=== PATIENT | male | born 1965 | race Caucasian/White ===

== ENCOUNTER 2018-06-14 10:27 | Emergency (ER) | payer MEDICAID, OTHER ==
[2018-06-14] MEDS ORDERED: LORazepam 1 MG Tab PO ONE (11:01)
--- NOTE | 2018-06-14 11:22 | EDM.PDOC ---
ED HPI GENERAL MEDICAL PROBLEM - General Chief Complaint: Behavioral/Psych Stated Complaint: PANIC ATTACK Time Seen by Provider: 06/14/18 10:35 Source of Information: Reports: Patient History Limitations: Reports: No Limitations - History of Present Illness INITIAL COMMENTS - FREE TEXT/NARRATIVE: HISTORY AND PHYSICAL: History of present illness: Patient is a 53-year-old male who presents to the emergency room today via personal vehicle with concerns of "panic attack ". Patient states his main symptom is feeling dizzy and lightheaded. Patient states he believes this is related to him abstaining from alcohol. He states he has been trying to decrease his alcohol intake over the past month. He states his usual drinking would be about "a fifth" of hard alcohol a day (750mL). He states over the last week he has minimized that to 2 shots a day over the past week or so. He states since he has decreased his alcohol intake, he notices that he feels dizzy and lightheaded and feels like he can't breathe. Patient states that he has been told in the past that if he tries to stop drinking, that he will likely from withdraw due to his heavy alcohol use. Patient expresses significant anxiety about this and is concerned about stopping his alcohol intake due to this statement. He states that if we are not able to help him today with the symptoms that he will go to the liquor store following his ED visit. He states that if he does take a shot of alcohol, his symptoms go away. He states his last drink was yesterday around 2 PM and total intake yesterday was 2 shots. Patient denies any alcohol use today. Patient states that he is on Prozac for depression and anxiety and follows with his primary care provider in [place] where he is from. He states that he goes home to [place] next month and will not be able to see this provider until then (due to lack of insurance coverage here in [place]). Patient states his compliant with medications. Patient denies chest pain, wheezing, cough, fever, chills, nausea, vomiting abdominal pain, pain in either arm, diaphoresis, sinus congestion, ear pain, or all other cardiovascular, respiratory, GI, or symptoms. Patient does have a health history of COPD, heavy tobacco/smoking abuse, obstructive sleep apnea, hypertension, hyperlipidemia, insulin-dependent type 2 diabetes, alcohol abuse, anxiety, depression, does have a pacemaker but is unsure of etiology. Review of systems: As per history of present illness and below otherwise all systems reviewed and negative. Past medical history: As per history of present illness and as reviewed below otherwise noncontributory. Surgical history: As per history of present illness and as reviewed below otherwise noncontributory. Social history: See social history for further information Family history: As per history of present illness and as reviewed below otherwise noncontributory. Physical exam: General: Patient is alert, orientated, speaking full sentences, and in no acute distress. He is sitting comfortably on exam table but mildly anxious appearing. HEENT: Atraumatic, normocephalic, pupils equal and reactive bilaterally, negative for conjunctival pallor or scleral icterus, mucous membranes moist, TMs normal bilaterally, throat clear, neck supple, nontender, trachea midline. No drooling or trismus noted. No meningeal signs. No hot potato voice noted. Lungs: There is diffuse wheezing throughout lung kennedy bilaterally, breath sounds equal bilaterally but greatly diminished, chest nontender. Heart: Heart exam is limited due to body habitus. S1S2, regular rate and rhythm without overt murmur Abdomen: Obese, soft, nondistended, nontender. Negative for masses or hepatosplenomegaly. Negative for costovertebral tenderness. Pelvis: Stable nontender. Genitourinary: Deferred. Rectal: Deferred. Skin: Intact, warm, dry. No lesions or rashes noted. Extremities: Atraumatic, negative for cords or calf pain. Neurovascular unremarkable. Neuro: Awake, alert, oriented. Cranial nerves II through XII unremarkable. Cerebellum unremarkable. Motor and sensory unremarkable throughout. Exam nonfocal. Notes: On exam, patient is alert, oriented and speaking in full sentences. He is mildly anxious appearing when discussing his alcohol history. We'll do routine lab work on this patient and give him 1 dose of Ativan while here. He does have a ride to home. Patient is aware of the limitations available for assisting with his alcohol cessation treatment. We discussed appropriate follow-up and community resources that are available to him. He states he will not see a primary care provider here and [place] as his insurance does not cover anything other than emergency room visits. He is agreeable to the labs at this time. Lab work is unremarkable with the exception of an elevated sugar level today.EKG shows no changes from previous ER visit. Chest x-ray shows no acute cardio-pulmonary process. He states he feels improved. VSS. Patient was made aware of diagnostics. Encouraged him to continue to monitor his glucose and administers insulin per his routine. We'll give a prescription for Atarax for a few days until he can follow-up. Diagnostics: CBC, CMP, troponin, EKG, orthostatic vitals, chest x-ray Therapeutics: Ativan PO Prescription: Atarax Impression: 1. Anxiety 2. h/o alcohol abuse 3. h/o type 2 diabetes Plan: 1. Take medication as prescribed. 2. Follow up with your primary care physician in [place] or establish one here for definitive treatment of your symptoms. Please be reevaluated in 1-2 days. 3. Continue to abstain from alcohol. Follow up with [facility] or outpatient AA meetings for continued support. 4. Return to the ED as needed and as discussed. Definitive disposition and diagnosis as appropriate pending reevaluation and review of above. - Related Data Allergies Allergy/AdvReac Type Severity Reaction Status Date / Time No Known Allergies Allergy Verified 06/14/18 10:52 Home Meds: Home Meds Insulin Detemir [Levemir Flextouch] 100 unit SQ BID 04/18/18 [History] glipiZIDE [Glucotrol] 10 mg PO DAILY 04/18/18 [History] metFORMIN HCl [Metformin HCl] 1,000 mg PO BID 04/18/18 [History] hydrOXYzine HCl [Atarax] 25 mg PO Q6H PRN #15 tab 06/14/18 [Rx] Past Medical History HEENT History: Reports: Impaired Vision Cardiovascular History: Reports: Hypertension, Pacemaker Respiratory History: Reports: None Gastrointestinal History: Reports: None Genitourinary History: Reports: None Musculoskeletal History: Reports: None Neurological History: Reports: None Psychiatric History: Reports: Anxiety, Depression, Panic Attack Endocrine/Metabolic History: Reports: Diabetes, Type II Immunologic History: Reports: None Dermatologic History: Reports: None - Infectious Disease History Infectious Disease History: Reports: None Social & Family History - Family History Family Medical History: Noncontributory - Tobacco Use Smoking Status *Q: Current Every Day Smoker Years of Tobacco use: 35 Packs/Tins Daily: 1 - Recreational Drug Use Recreational Drug Use: No ED ROS GENERAL - Review of Systems Review Of Systems: ROS reveals no pertinent complaints other than HPI. ED EXAM, DIZZINESS - Physical Exam Exam: See Below (see dictation) Course - Vital Signs Last Recorded V/S: Last Vital Signs Temp 97.2 F 06/14/18 10:49 Pulse 83 06/14/18 10:49 Resp 20 06/14/18 10:49 BP 135/98 H 06/14/18 10:49 Pulse Ox 97 06/14/18 10:49 Orthostatic Blood Pressure [ 122/93 Standing] Orthostatic Blood Pressure [ 148/95 Sitting] Orthostatic Blood Pressure [ 137/86 Supine] - Orders/Labs/Meds Orders: Active Orders 24 hr Category Date Time Status EKG Documentation Completion [RC] STAT Care 06/14/18 11:02 Active Orthostatic Vital Signs [RC] ASDIRECTED Care 06/14/18 11:04 Active Chest 2V [CR] Stat Exams 06/14/18 11:02 Ordered Labs: Laboratory Tests 06/14/18 06/14/18 Range/Units 11:10 11:10 WBC 6.52 (4.0-11.0) K/uL RBC 4.79 (4.50-5.90) M/uL Hgb 15.3 (13.0-17.0) g/dL Hct 42.4 (38.0-50.0) % MCV 88.5 (80.0-98.0) fL MCH 31.9 (27.0-32.0) pg MCHC 36.1 (31.0-37.0) g/dL RDW Std Deviation 43.3 (28.0-62.0) fl RDW Coeff of Blank 13 (11.0-15.0) % Plt Count 177 (150-400) K/uL MPV 9.30 (7.40-12.00) fL Neut % (Auto) 51.6 (48.0-80.0) % Lymph % (Auto) 37.4 (16.0-40.0) % Faulkner % (Auto) 9.0 (0.0-15.0) % Eos % (Auto) 1.4 (0.0-7.0) % Baso % (Auto) 0.6 (0.0-1.5) % Neut # (Auto) 3.4 (1.4-5.7) K/uL Lymph # (Auto) 2.4 (0.6-2.4) K/uL Faulkner # (Auto) 0.6 (0.0-0.8) K/uL Eos # (Auto) 0.1 (0.0-0.7) K/uL Baso # (Auto) 0.0 (0.0-0.1) K/uL Nucleated RBC % 0.0 /100WBC Nucleated RBCs # 0 K/uL Sodium 134 L (136-148) mmol/L Potassium 3.9 (3.5-5.1) mmol/L Chloride 101 (98-107) mmol/L Carbon Dioxide 20.5 L (21.0-32.0) mmol/L BUN 6 L (7.0-18.0) mg/dL Creatinine 1.0 (0.8-1.3) mg/dL Est Cr Clr Drug Dosing 95.92 mL/min Estimated GFR (MDRD) > 60.0 ml/min Glucose 256 H (74-106) mg/dL Calcium 8.8 (8.5-10.1) mg/dL Total Bilirubin 0.5 (0.2-1.0) mg/dL AST 32 (15-37) IU/L ALT 39 (14-63) IU/L Alkaline Phosphatase 65 (46-116) U/L Troponin I < 0.050 (0.000-0.056) ng/mL Total Protein 7.3 (6.4-8.2) g/dL Albumin 3.6 (3.4-5.0) g/dL Globulin 3.7 (2.6-4.0) g/dL Albumin/Globulin Ratio 1.0 (0.9-1.6) Meds: Medications Discontinued Medications Generic Name Dose Route Start Last Admin Trade Name Freq PRN Reason Stop Dose Admin Lorazepam 1 mg 06/14/18 11:01 06/14/18 11:12 Ativan PO 06/14/18 11:02 1 mg ONETIME ONE Administration Departure - Departure Time of Disposition: 12:24 Disposition: Home, Self-Care 01 Clinical Impression: Anxiety, History of diabetes mellitus, type II, History of alcohol abuse - Discharge Information Prescriptions: hydrOXYzine HCl [Atarax] 25 mg PO Q6H PRN #15 tab PRN Reason: Anxiety Instructions: Panic Attack, [id number] Referrals: PCP,None [Primary Care Provider] - Forms: ED Department Discharge Additional Instructions: The following information is given to patients seen in the emergency department who are being discharged to home. This information is to outline your options for follow-up care. We provide all patients seen in our emergency department with a follow-up referral. The need for follow-up, as well as the timing and circumstances, are variable depending upon the specifics of your emergency department visit. If you don't have a primary care physician on staff, we will provide you with a referral. We always advise you to contact your personal physician following an emergency department visit to inform them of the circumstance of the visit and for follow-up with them and/or the need for any referrals to a consulting specialist. The emergency department will also refer you to a specialist when appropriate. This referral assures that you have the opportunity for follow-up care with a specialist. All of these measure are taken in an effort to provide you with optimal care, which includes your follow-up. Under all circumstances we always encourage you to contact your private physician who remains a resource for coordinating your care. When calling for follow-up care, please make the office aware that this follow-up is from your recent emergency room visit. If for any reason you are refused follow-up, please contact the [facility] Emergency Department at and asked to speak to the emergency department charge nurse. [facility] [address], [place] [address] [facility] [address] [place] [phone] [facility] [address] [facility] [id number] Crisis Line: 1. Take medication as prescribed. 2. Follow up with your primary care physician in [place] or establish one here for definitive treatment of your symptoms. Please be reevaluated in 1-2 days. 3. Continue to abstain from alcohol. Follow up with [facility] or outpatient AA meetings for continued support. 4. Return to the ED as needed and as discussed. - My Orders Last 24 Hours: My Active Orders 06/14/18 11:02 EKG Documentation Completion [RC] STAT Chest 2V [CR] Stat 06/14/18 11:04 Orthostatic Vital Signs [RC] ASDIRECTED - Assessment/Plan Last 24 Hours: My Active Orders 06/14/18 11:02 EKG Documentation Completion [RC] STAT Chest 2V [CR] Stat 06/14/18 11:04 Orthostatic Vital Signs [RC] ASDIRECTED
[2018-06-14 11:44] LABS: CHLORIDE,CL 101 mmol/L (98-107); SODIUM,NA 134 mmol/L (136-148)
--- NOTE | 2018-06-14 14:17 | CR ---
EXAMINATION: Two-view chest (PA and Lateral views). HISTORY: Dizziness. FINDINGS: The trachea is midline. The cardiomediastinal silhouette is within normal limits. No pulmonary infiltrates, effusions or pneumothorax. There is a left-sided pacemaker. Old granulomatous disease noted. Mild hyperinflation. Osseous structures appear unremarkable. IMPRESSION: No acute cardiopulmonary process.
== END 2018-06-14 12:36 | disposition home or self-care (01) ==
LOC: MW.ED 10:27
DX: F41.9 Anxiety disorder, unspecified (principal); E11.9 Type 2 diabetes mellitus without complications; F17.210 Nicotine dependence, cigarettes, uncomplicated; I10 Essential (primary) hypertension; Z79.4 Long term (current) use of insulin; Z79.899 Other long term (current) drug therapy
CPT/HCPCS: 36415; 71046; 80053; 84484; 85025; 93005; 99284; A9270

== ENCOUNTER 2018-08-08 06:52 | Emergency (ER) | payer MEDICAID ==
--- NOTE | 2018-08-08 07:25 | EDM.PDOC ---
ED HPI GENERAL MEDICAL PROBLEM - General Stated Complaint: INFECTION ON STOMACH Time Seen by Provider: 08/08/18 07:05 Source of Information: Reports: Patient History Limitations: Reports: No Limitations - History of Present Illness INITIAL COMMENTS - FREE TEXT/NARRATIVE: History of present illness: []Patient had a mesh hernia repair 2 years ago in [place] and ever since then he's had drainage from an umbilical wound. 3 days ago it started getting red and itchy. He denies any fevers, chills, abdominal pain that is not localized to the area of drainage, vomiting, diarrhea or any other pain. He has a history of boils and has been treated with Bactrim past. Review of systems: As per history of present illness and below otherwise all systems reviewed and negative. Past medical history: As per history of present illness and as reviewed below otherwise noncontributory. Surgical history: As per history of present illness and as reviewed below otherwise noncontributory. Social history: No reported history of drug or alcohol abuse. Family history: As per history of present illness and as reviewed below otherwise noncontributory. Physical exam: General: Well developed, well nourished in NAD HEENT: Atraumatic, normocephalic, pupils reactive, negative for conjunctival pallor or scleral icterus, mucous membranes moist, throat clear, neck supple, nontender, trachea midline. Lungs: Clear to auscultation, breath sounds equal bilaterally, chest nontender. Heart: S1S2, regular, negative for clicks, rubs, or JVD. Abdomen: Umbilical area that is erythematous 0.5 cm open wound with granulation tissue there is serous drainage, there is no purulent drainage from the wound andthere is a rash on both sides of the wound where he is using tape to keep the dressing in place. NABS, Soft, nondistended, no rebound or guarding. Negative for masses or hepatosplenomegaly. Negative for costovertebral tenderness. Pelvis: Stable nontender. Genitourinary: Deferred. Rectal: Deferred. Extremities: Atraumatic, negative for cords or calf pain. Neurovascular unremarkable. Neuro: Awake, alert, oriented. Cranial nerves II through XII unremarkable. Cerebellum unremarkable. Motor and sensory unremarkable throughout. Exam nonfocal. Skin:warm and dry Diagnostics: Bedside glucose 239 (patient states he has not taken his meds this morning) Therapeutics: None ED Course: Stable Impression: Chronic abdominal wound under under mesh hernia repair Prescriptions: Bactrim Plan: Follow up with general surgery,Take meds as directed, follow up with your primary care physician, return to ER if symptoms worsen or change. Definitive disposition and diagnosis as appropriate pending reevaluation and review of above. Abdominal Pain Score (Numeric/FACES): 6 - Related Data Allergies Allergy/AdvReac Type Severity Reaction Status Date / Time No Known Allergies Allergy Verified 08/08/18 07:32 Home Meds: Home Meds Insulin Detemir [Levemir Flextouch] 100 unit SQ BID 04/18/18 [History] glipiZIDE [Glucotrol] 10 mg PO DAILY 04/18/18 [History] metFORMIN HCl [Metformin HCl] 1,000 mg PO BID 04/18/18 [History] FLUoxetine [PROzac] 10 mg PO DAILY 06/08/18 [History] Insulin Detemir [Levemir] 30 unit SQ BID 06/08/18 [History] Lisinopril [Prinivil] 10 mg PO DAILY 06/08/18 [History] Omeprazole 20 mg PO DAILY 06/08/18 [History] metFORMIN [Glucophage XR] 500 mg pe PO BID 06/08/18 [History] hydrOXYzine HCl [Atarax] 25 mg PO Q6H PRN #15 tab 06/14/18 [Rx] Sulfamethoxazole/Trimethoprim [Bactrim Ds Tablet] 1 each PO BID #20 tablet 08/08 [Rx] Past Medical History HEENT History: Reports: Impaired Vision Cardiovascular History: Reports: Hypertension, Pacemaker Respiratory History: Reports: None Gastrointestinal History: Reports: None Genitourinary History: Reports: None Musculoskeletal History: Reports: None Neurological History: Reports: None Psychiatric History: Reports: Anxiety, Depression, Panic Attack Endocrine/Metabolic History: Reports: Diabetes, Type II Immunologic History: Reports: None Dermatologic History: Reports: None - Infectious Disease History Infectious Disease History: Reports: None - Past Surgical History GI Surgical History: Reports: Colonoscopy, Hernia Repair/Other Social & Family History - Family History Family Medical History: Noncontributory ED ROS GENERAL - Review of Systems Review Of Systems: ROS reveals no pertinent complaints other than HPI. ED EXAM, GI/ABD - Physical Exam Exam: See Below (See history of present illness) Course - Vital Signs Last Recorded V/S: Last Vital Signs Temp 98.2 F 08/08/18 07:33 Pulse 86 08/08/18 07:33 Resp 16 08/08/18 07:33 BP 145/86 H 08/08/18 07:33 Pulse Ox 97 08/08/18 07:33 - Orders/Labs/Meds Orders: Active Orders 24 hr Category Date Time Status Blood Glucose Check, Bedside [RC] ONETIME Care 08/08/18 07:39 Active Departure - Departure Time of Disposition: 07:46 Disposition: Home, Self-Care 01 Condition: Good Clinical Impression: Wound cellulitis after surgery - Discharge Information *PRESCRIPTION DRUG MONITORING PROGRAM REVIEWED*: No *COPY OF PRESCRIPTION DRUG MONITORING REPORT IN PATIENT TORRI: No Prescriptions: Sulfamethoxazole/Trimethoprim [Bactrim Ds Tablet] 1 each PO BID #20 tablet Referrals: PCP,None [Primary Care Provider] - Additional Instructions: The following information is given to patients seen in the emergency department who are being discharged to home. This information is to outline your options for follow-up care. We provide all patients seen in our emergency department with a follow-up referral. The need for follow-up, as well as the timing and circumstances, are variable depending upon the specifics of your emergency department visit. If you don't have a primary care physician on staff, we will provide you with a referral. We always advise you to contact your personal physician following an emergency department visit to inform them of the circumstance of the visit and for follow-up with them and/or the need for any referrals to a consulting specialist. The emergency department will also refer you to a specialist when appropriate. This referral assures that you have the opportunity for follow-up care with a specialist. All of these measure are taken in an effort to provide you with optimal care, which includes your follow-up. Under all circumstances we always encourage you to contact your private physician who remains a resource for coordinating your care. When calling for follow-up care, please make the office aware that this follow-up is from your recent emergency room visit. If for any reason you are refused follow-up, please contact the [facility] Emergency Department at and asked to speak to the emergency department charge nurse. Follow-up with general surgery or primary care [facility] - General Surgery Professional [facility] [address] [place] [address], [address] [place] [address] [facility] [address] [place] [id number] - My Orders Last 24 Hours: My Active Orders 08/08/18 07:39 Blood Glucose Check, Bedside [] ONETIME - Assessment/Plan Last 24 Hours: My Active Orders 08/08/18 07:39 Blood Glucose Check, Bedside [RC] ONETIME
== END 2018-08-08 07:56 | disposition home or self-care (01) ==
LOC: MW.ED 06:52
DX: K91.89 Other postprocedural complications and disorders of digestive system (principal); L03.311 Cellulitis of abdominal wall
CPT/HCPCS: 99282; 99283

== ENCOUNTER 2019-02-15 08:56 | Observation (INO) | payer MEDICAID, OTHER, SELFPAY ==
[2019-02-15] MEDS ORDERED: Sodium Chloride 0.9% 10 ML Syringe FLUSH PRN (09:04)
[2019-02-15] MEDS ORDERED: Aspirin 81 MG Tab.Chew PO ONE (09:04)
[2019-02-15] MEDS ORDERED: Sodium Chloride 0.9% 2.5 ML Syringe FLUSH PRN (09:04)
[2019-02-15] MEDS ORDERED: Nitroglycerin 2% Oint 1 GM UD Packet TOP ONE (09:04)
[2019-02-15] MEDS ORDERED: LORazepam 2 MG/ML SDV IVPUSH ONE ×2 (09:04→10:33)
--- NOTE | 2019-02-15 09:07 | EDM.PDOC ---
ED HPI GENERAL MEDICAL PROBLEM - General Stated Complaint: SHORTNESS OF BREATH Time Seen by Provider: 02/15/19 09:03 - History of Present Illness INITIAL COMMENTS - FREE TEXT/NARRATIVE: HISTORY AND PHYSICAL: History of present illness: Patient's 54-year-old white male with history of diabetes hypertension cardiac pacemaker alcohol abuse acute anxiety medical noncompliance who presents with a concern of shortness of breath anxiety and palpitations. He states his noncompliance relates to insurance reasons and being new to the area and unattached with any physician. Review of systems: As per history of present illness and below otherwise all systems reviewed and negative. Past medical history: As per history of present illness and as reviewed below otherwise noncontributory. Surgical history: As per history of present illness and as reviewed below otherwise noncontributory. Social history: No reported history of drug or alcohol abuse. Family history: As per history of present illness and as reviewed below otherwise noncontributory. Physical exam: HEENT: Atraumatic, normocephalic, pupils reactive, negative for conjunctival pallor or scleral icterus, mucous membranes moist, throat clear, neck supple, nontender, trachea midline. Lungs: Clear to auscultation, breath sounds equal bilaterally, chest nontender. Heart: S1S2, regular, negative for clicks, rubs, or JVD. Abdomen: Soft, nondistended, nontender. Negative for masses or hepatosplenomegaly. Negative for costovertebral tenderness. Pelvis: Stable nontender. Genitourinary: Deferred. Rectal: Deferred. Extremities: Atraumatic, negative for cords or calf pain. Neurovascular unremarkable. Neuro: Awake, alert, anxious, oriented. Cranial nerves II through XII unremarkable. Cerebellum unremarkable. Motor and sensory unremarkable throughout. Exam nonfocal. Diagnostics: CBC CMP troponin PT/INR chest x-ray EKG BNP Therapeutics: Saline lock aspirin 324 mg by mouth Ativan 1 mg IV nitro paste 1 inch Impression: #1 dyspnea #2 anxiety #3 history of alcohol abuse #4 history of medical noncompliance #5 history of hypertension #6 palpitations #7 diabetes Definitive disposition and diagnosis as appropriate pending reevaluation and review of above. - Related Data Allergies Allergy/AdvReac Type Severity Reaction Status Date / Time No Known Allergies Allergy Verified 02/15/19 10:01 Home Meds: Home Meds Insulin Detemir [Levemir Flextouch] 100 unit SQ BID 04/18/18 [History] glipiZIDE [Glucotrol] 10 mg PO DAILY 04/18/18 [History] metFORMIN HCl [Metformin HCl] 1,000 mg PO BID 04/18/18 [History] FLUoxetine [PROzac] 10 mg PO DAILY 06/08/18 [History] Insulin Detemir [Levemir] 30 unit SQ BID 06/08/18 [History] Lisinopril [Prinivil] 10 mg PO DAILY 06/08/18 [History] Omeprazole 20 mg PO DAILY 06/08/18 [History] hydrOXYzine HCl [Atarax] 25 mg PO Q6H PRN #15 tab 06/14/18 [Rx] Sulfamethoxazole/Trimethoprim [Bactrim Ds Tablet] 1 each PO BID #20 tablet 08/08 [Rx] Past Medical History HEENT History: Reports: Impaired Vision Cardiovascular History: Reports: Hypertension, Pacemaker Respiratory History: Reports: None Gastrointestinal History: Reports: None Genitourinary History: Reports: None Musculoskeletal History: Reports: None Neurological History: Reports: None Psychiatric History: Reports: Anxiety, Depression, Panic Attack Endocrine/Metabolic History: Reports: Diabetes, Type II Immunologic History: Reports: None Dermatologic History: Reports: None - Infectious Disease History Infectious Disease History: Reports: None - Past Surgical History GI Surgical History: Reports: Colonoscopy, Hernia Repair/Other Social & Family History - Family History Family Medical History: Noncontributory - Caffeine Use Caffeine Use: Reports: Coffee ED ROS GENERAL - Review of Systems Review Of Systems: ROS reveals no pertinent complaints other than HPI. ED EXAM, GENERAL - Physical Exam Exam: See Below (See dictation) Course - Vital Signs Last Recorded V/S: Last Vital Signs Temp 35.9 C 02/15/19 09:58 Pulse 84 02/15/19 10:30 Resp 20 02/15/19 10:30 BP 184/125 H 02/15/19 10:30 Pulse Ox 95 02/15/19 10:30 - Orders/Labs/Meds Orders: Active Orders 24 hr Category Date Time Status Cardiac Monitoring [RC] . DIRECTED Care 02/15/19 09:03 Active EKG Documentation Completion [RC] STAT Care 02/15/19 09:03 Active Oxygen Therapy, ED [RC] ASDIRECTED Care 02/15/19 09:03 Active Pulse Oximetry [RC] ASDIRECTED Care 02/15/19 09:03 Active MVI, Adult with Vitamin K [Infuvite Adult] 10 ml Med 02/15/19 10:33 Active Thiamine [Vitamin B-1] 100 mg Folic Acid 1 mg Sodium Chloride 0.9% [Normal Saline] 1,000 ml IV ONETIME Sodium Chloride 0.9% [Saline Flush] Med 02/15/19 09:04 Active 10 ml FLUSH ASDIRECTED PRN Sodium Chloride 0.9% [Saline Flush] Med 02/15/19 09:04 Active 2.5 ml FLUSH ASDIRECTED PRN Saline Lock Insert [OM.PC] Stat Oth 02/15/19 09:03 Ordered Medication Orders Multivitamins/Minerals 10 ml/Thiamine HCl 100 mg/ Folic Acid 1 mg/ Sodium Chloride 1,011.2 mls @ 999 mls/hr IV ONETIME ONE Stop: 02/15/19 11:33 Last Admin: 02/15/19 10:51 Dose: 999 mls/hr Sodium Chloride (Saline Flush) 10 ml FLUSH ASDIRECTED PRN PRN Reason: Keep Vein Open Sodium Chloride (Saline Flush) 2.5 ml FLUSH ASDIRECTED PRN PRN Reason: Keep Vein Open Labs: Laboratory Tests 02/15/19 02/15/19 02/15/19 Range/Units 09:17 09:17 09:17 WBC 6.09 (4.0-11.0) K/uL RBC 4.65 (4.50-5.90) M/uL Hgb 15.2 (13.0-17.0) g/dL Hct 43.2 (38.0-50.0) % MCV 92.9 (80.0-98.0) fL MCH 32.7 H (27.0-32.0) pg MCHC 35.2 (31.0-37.0) g/dL RDW Std Deviation 45.3 (28.0-62.0) fl RDW Coeff of Blank 13 (11.0-15.0) % Plt Count 134 L (150-400) K/uL MPV 9.20 (7.40-12.00) fL Neut % (Auto) 57.3 (48.0-80.0) % Lymph % (Auto) 34.0 (16.0-40.0) % [place] % (Auto) 6.1 (0.0-15.0) % Eos % (Auto) 2.1 (0.0-7.0) % Baso % (Auto) 0.5 (0.0-1.5) % Neut # (Auto) 3.5 (1.4-5.7) K/uL Lymph # (Auto) 2.1 (0.6-2.4) K/uL [place] # (Auto) 0.4 (0.0-0.8) K/uL Eos # (Auto) 0.1 (0.0-0.7) K/uL Baso # (Auto) 0.0 (0.0-0.1) K/uL Nucleated RBC % 0.0 /100WBC Nucleated RBCs # 0 K/uL INR 1.22 Sodium 139 (136-148) mmol/L Potassium 3.7 (3.5-5.1) mmol/L Chloride 101 (98-107) mmol/L Carbon Dioxide 26.4 (21.0-32.0) mmol/L BUN 8 (7.0-18.0) mg/dL Creatinine 0.9 (0.8-1.3) mg/dL Est Cr Clr Drug Dosing 108.51 mL/min Estimated GFR (MDRD) > 60.0 ml/min Glucose 234 H (74-106) mg/dL Calcium 9.0 (8.5-10.1) mg/dL Total Bilirubin 0.3 (0.2-1.0) mg/dL AST 37 (15-37) IU/L ALT 34 (14-63) IU/L Alkaline Phosphatase 61 (46-116) U/L Troponin I < 0.050 (0.000-0.056) ng/mL B-Natriuretic Peptide (<100) PG/ML Total Protein 6.9 (6.4-8.2) g/dL Albumin 3.2 L (3.4-5.0) g/dL Globulin 3.7 (2.6-4.0) g/dL Albumin/Globulin Ratio 0.9 (0.9-1.6) 02/15/19 Range/Units 09:17 WBC (4.0-11.0) K/uL RBC (4.50-5.90) M/uL Hgb (13.0-17.0) g/dL Hct (38.0-50.0) % MCV (80.0-98.0) fL MCH (27.0-32.0) pg MCHC (31.0-37.0) g/dL RDW Std Deviation (28.0-62.0) fl RDW Coeff of Blank (11.0-15.0) % Plt Count (150-400) K/uL MPV (7.40-12.00) fL Neut % (Auto) (48.0-80.0) % Lymph % (Auto) (16.0-40.0) % [place] % (Auto) (0.0-15.0) % Eos % (Auto) (0.0-7.0) % Baso % (Auto) (0.0-1.5) % Neut # (Auto) (1.4-5.7) K/uL Lymph # (Auto) (0.6-2.4) K/uL [place] # (Auto) (0.0-0.8) K/uL Eos # (Auto) (0.0-0.7) K/uL Baso # (Auto) (0.0-0.1) K/uL Nucleated RBC % /100WBC Nucleated RBCs # K/uL INR Sodium (136-148) mmol/L Potassium (3.5-5.1) mmol/L Chloride (98-107) mmol/L Carbon Dioxide (21.0-32.0) mmol/L BUN (7.0-18.0) mg/dL Creatinine (0.8-1.3) mg/dL Est Cr Clr Drug Dosing mL/min Estimated GFR (MDRD) ml/min Glucose (74-106) mg/dL Calcium (8.5-10.1) mg/dL Total Bilirubin (0.2-1.0) mg/dL AST (15-37) IU/L ALT (14-63) IU/L Alkaline Phosphatase (46-116) U/L Troponin I (0.000-0.056) ng/mL B-Natriuretic Peptide 36 (<100) PG/ML Total Protein (6.4-8.2) g/dL Albumin (3.4-5.0) g/dL Globulin (2.6-4.0) g/dL Albumin/Globulin Ratio (0.9-1.6) Meds: Medications Generic Name Dose Route Start Last Admin Trade Name Freq PRN Reason Stop Dose Admin Multivitamins/Minerals 10 ml/ 1,011.2 mls @ 999 mls/hr 02/15/19 10:33 10:51 Thiamine HCl 100 mg/ Folic IV 02/15/19 11:33 999 mls/hr Acid 1 mg/ Sodium Chloride ONETIME ONE Administration Sodium Chloride 10 ml 02/15/19 09:04 Saline Flush FLUSH ASDIRECTED PRN Keep Vein Open Sodium Chloride 2.5 ml 02/15/19 09:04 Saline Flush FLUSH ASDIRECTED PRN Keep Vein Open Discontinued Medications Generic Name Dose Route Start Last Admin Trade Name Freq PRN Reason Stop Dose Admin Aspirin 324 mg 02/15/19 09:04 02/15/19 09:14 Aspirin PO 02/15/19 09:05 324 mg ONETIME ONE Administration Lorazepam 1 mg 02/15/19 09:04 02/15/19 09:15 Ativan IVPUSH 02/15/19 09:05 1 mg ONETIME ONE Administration Lorazepam 1 mg 02/15/19 10:33 02/15/19 10:39 Ativan IVPUSH 02/15/19 10:34 1 mg ONETIME ONE Administration Lorazepam Confirm 02/15/19 10:35 Ativan Administered 02/15/19 10:36 Dose 2 mg .ROUTE .STK-MED ONE Nitroglycerin 1 gm 02/15/19 09:04 02/15/19 09:15 Nitro-Bid 2% TOP 02/15/19 09:05 1 gm ONETIME ONE Administration Departure - Departure Time of Disposition: 10:54 Disposition: Home, Self-Care 01 Condition: Good Clinical Impression: Alcohol withdrawal - Discharge Information - My Orders Last 24 Hours: My Active Orders 02/15/19 09:03 Cardiac Monitoring [RC] . DIRECTED EKG Documentation Completion [RC] STAT Oxygen Therapy, ED [RC] ASDIRECTED Pulse Oximetry [RC] ASDIRECTED Saline Lock Insert [OM.PC] Stat 02/15/19 09:04 Sodium Chloride 0.9% [Saline Flush] 10 ml FLUSH ASDIRECTED PRN Sodium Chloride 0.9% [Saline Flush] 2.5 ml FLUSH ASDIRECTED PRN 02/15/19 10:33 MVI, Adult with Vitamin K [Infuvite Adult] 10 ml Thiamine [Vitamin B-1] 100 mg Folic Acid 1 mg Sodium Chloride 0.9% [Normal Saline] 1,000 ml IV ONETIME - Assessment/Plan Last 24 Hours: My Active Orders 02/15/19 09:03 Cardiac Monitoring [RC] . DIRECTED EKG Documentation Completion [RC] STAT Oxygen Therapy, ED [RC] ASDIRECTED Pulse Oximetry [RC] ASDIRECTED Saline Lock Insert [OM.PC] Stat 02/15/19 09:04 Sodium Chloride 0.9% [Saline Flush] 10 ml FLUSH ASDIRECTED PRN Sodium Chloride 0.9% [Saline Flush] 2.5 ml FLUSH ASDIRECTED PRN 02/15/19 10:33 MVI, Adult with Vitamin K [Infuvite Adult] 10 ml Thiamine [Vitamin B-1] 100 mg Folic Acid 1 mg Sodium Chloride 0.9% [Normal Saline] 1,000 ml IV ONETIME
[2019-02-15 10:05] LABS: BLOOD UREA NITROGEN,BUN 8 mg/dL (7.0-18.0); CARBON DIOXIDE,CO2 26.4 mmol/L (21.0-32.0); CHLORIDE,CL 101 mmol/L (98-107); GLUCOSE RANDOM 234 mg/dL (74-106); POTASSIUM,K 3.7 mmol/L (3.5-5.1); SODIUM,NA 139 mmol/L (136-148)
--- NOTE | 2019-02-15 10:20 | CR ---
INDICATION: prior sent. 1 image. chest pain INDICATION: Chest pain. TECHNIQUE: Chest 1 view. COMPARISON: 06/14/2018. FINDINGS: Cardiovascular and mediastinum: Heart size and vasculature are normal in caliber and appearance. Mediastinum is within normal limits. Lungs and pleural space: Calcified granuloma in the right lung. Lungs are otherwise clear. No sign of infiltrate or mass. No sign of pleural effusion. No pneumothorax. Bones and soft tissues: Left subclavian transvenous pacemaker device, with leads continuous and stable. IMPRESSION: No acute airspace disease. Dictated by Kelton Abraham MD @ 02/15/2019 10:18:40 AM Dictated by: Kelton Abraham MD @ 02/15/2019 10:19:17 (Electronically Signed)
[2019-02-15] MEDS ORDERED: MVI, Adult with Vitamin K 10 ML, Thiamine 100 MG, Folic Acid 1 MG in Sodium Chloride 0.... IV ONE ×4 (10:33)
[2019-02-15] MEDS ORDERED: LORazepam 2 MG/ML SDV ONE (10:35)
[2019-02-15] MEDS ORDERED: Ondansetron 4 MG/2 ML SDV IVPUSH PRN (12:47)
[2019-02-15] MEDS ORDERED: Lisinopril 10 MG Tab PO SCH (13:15)
--- NOTE | 2019-02-15 13:56 | PCM.HP.2 ---
H&P History of Present Illness - General Date of Service: 02/15/19 Admit Problem/Dx: Admission Diagnosis/Problem Admission Diagnosis/Problem Alcohol withdrawal,dyspnea, HTN Source of Information: Patient History Limitations: Reports: No Limitations - History of Present Illness Initial Comments - Free Text/Narative: This 54 year old male with pmh of HTN, dyslipidemia, pacemaker, DE, DM type 2 and history of alcohol abuse presented to the ED with concerns of shortness of breath. He reports he started having shortness of breath last evening and got very anxious about it. He reports this shortness of breath started when he was sleeping, he would fall asleep and wake up short of breath and he progressively got anxious about this. He felt this is how it was when he was brought to the ED and needed his pacemaker placed. He denies chest pain or palpitations. He denies cough or fevers. Reports some sinus congestion. No other URI symptoms. He denies abdominal pain or urinary concerns. No headache or neurological deficits. He reports a wound to his abdomen that is non healing for 3 years since laparotomy and mesh placement. He reports not having all of his medications, mostly his Lisinopril and Levemir. He has been out for an unknown about of time. He reports he used to drink alcohol heavily went into treatment 2015, was sober for 1 year, then started drinking again. He reports he does not drink to the point of intoxication, but reports drinking almost daily. He does not feel tremors when he doesn't drink. He reports he smokes 2 ppd and no recreational drug use. In the ED CBC WNL. INR 1.22, BMP WNL. glucose 234. CXR negative. EKG SR rates 80s no ischemic changes. BP 180-200/110s. he was given 2 mg Ativan and Nitro paste placed. Troponin negative. - Related Data Allergies/Adverse Reactions: Allergies Allergy/AdvReac Type Severity Reaction Status Date / Time No Known Allergies Allergy Verified 02/15/19 10:01 Home Medications: Home Meds glipiZIDE [Glucotrol] 10 mg PO DAILY 04/18/18 [History] metFORMIN HCl [Metformin HCl] 1,000 mg PO DAILY 04/18/18 [History] FLUoxetine [PROzac] 10 mg PO DAILY 06/08/18 [History] Insulin Detemir [Levemir] 30 unit SQ BID 06/08/18 [History] Lisinopril [Prinivil] 10 mg PO DAILY 06/08/18 [History] Omeprazole 20 mg PO DAILY 06/08/18 [History] hydrOXYzine HCl [Atarax] 25 mg PO Q6H PRN #15 tab 06/14/18 [Rx] Famotidine 20 mg PO BID 02/15/19 [History] Past Medical History HEENT History: Reports: Impaired Vision Cardiovascular History: Reports: Hypertension, Pacemaker. Denies: Afib, Blood Clots/VTE/DVT, CAD, [place], Stents Respiratory History: Reports: None. Denies: COPD Gastrointestinal History: Reports: None, Other (See Below) Other Gastrointestinal History: polyps removed Genitourinary History: Reports: None. Denies: Chronic Renal Insuffiency Musculoskeletal History: Reports: None Neurological History: Reports: Neuropathy, Diabetic Psychiatric History: Reports: Anxiety, Depression, Panic Attack Endocrine/Metabolic History: Reports: Diabetes, Type II, Obesity/BMI 30+ Immunologic History: Reports: None Dermatologic History: Reports: None - Infectious Disease History Infectious Disease History: Reports: None - Past Surgical History GI Surgical History: Reports: Colonoscopy, Hernia Repair/Other (mech placement) Social & Family History - Family History Family Medical History: Noncontributory - Tobacco Use Smoking Status *Q: Current Every Day Smoker Years of Tobacco use: 50 Packs/Tins Daily: 2 - Caffeine Use Caffeine Use: Reports: None - Alcohol Use Days Per Week of Alcohol Use: 2 Number of Drinks Per Day: 0 Total Drinks Per Week: 0 Date of Last Drink: 02/14/19 Time of Last Drink: 21:00 - Recreational Drug Use Recreational Drug Use: No - Living Situation & Occupation Living situation: Reports: Alone Occupation: Employed H&P Review of Systems - Review of Systems: Review Of Systems: See Below General: Reports: No Symptoms. Denies: Fever, Chills, Malaise, Weakness HEENT: Reports: Sinus Congestion. Denies: Headaches, Visual Changes Pulmonary: Reports: Shortness of Breath. Denies: Cough, Sputum Cardiovascular: Reports: Dyspnea on Exertion Gastrointestinal: Reports: No Symptoms. Denies: Abdominal Pain, Decreased Appetite, Distension, Nausea, Vomiting Genitourinary: Reports: No Symptoms. Denies: Dysuria, Frequency, Burning Musculoskeletal: Reports: No Symptoms Skin: Reports: Wound (abdominal non healing wound) Psychiatric: Reports: No Symptoms Neurological: Denies: Headache Hematologic/Lymphatic: Reports: No Symptoms Immunologic: Reports: No Symptoms Exam - Exam Exam: See Below - Vital Signs Vital Signs: Last Vital Signs Temp 96.4 F 02/15/19 12:21 Pulse 82 02/15/19 12:21 Resp 20 02/15/19 12:21 BP 196/108 H 02/15/19 12:26 Pulse Ox 96 02/15/19 12:47 Weight: 115.757 kg - Exam General: Alert, Oriented, Cooperative HEENT: Conjunctiva Clear, Mucosa Moist & [place], Posterior Pharynx Clear Neck: No: JVD Lungs: Normal Respiratory Effort, Decreased Breath Sounds (bilateral) Cardiovascular: Regular Rate, Regular Rhythm, Normal S1, Normal S2. No: Systolic Murmur GI/Abdominal Exam: Normal Bowel Sounds, Soft, Non-Tender Back Exam: Normal Inspection, Full Range of Motion Extremities: Normal Inspection, Normal Range of Motion, Non-Tender, No Pedal Edema Skin: Wound (incisional non healing wound to mid abdomen. Oozing noted, no erythema or pain. Reports it appears to as it normally does.) Neurological: Cranial Nerves Intact Neuro Extensive - Mental Status: Alert, Oriented x3 Neuro Extensive - Motor, Sensory, Reflexes: CN II-XII Intact Psychiatric: Alert, Normal Affect, Normal Mood - Patient Data Lab Results Last 24 hrs: Laboratory Results - last 24 hr 02/15/19 02/15/19 02/15/19 Range/Units 09:17 09:17 09:17 WBC 6.09 (4.0-11.0) K/uL RBC 4.65 (4.50-5.90) M/uL Hgb 15.2 (13.0-17.0) g/dL Hct 43.2 (38.0-50.0) % MCV 92.9 (80.0-98.0) fL MCH 32.7 H (27.0-32.0) pg MCHC 35.2 (31.0-37.0) g/dL RDW Std Deviation 45.3 (28.0-62.0) fl RDW Coeff of Blank 13 (11.0-15.0) % Plt Count 134 L (150-400) K/uL MPV 9.20 (7.40-12.00) fL Neut % (Auto) 57.3 (48.0-80.0) % Lymph % (Auto) 34.0 (16.0-40.0) % [place] % (Auto) 6.1 (0.0-15.0) % Eos % (Auto) 2.1 (0.0-7.0) % Baso % (Auto) 0.5 (0.0-1.5) % Neut # (Auto) 3.5 (1.4-5.7) K/uL Lymph # (Auto) 2.1 (0.6-2.4) K/uL [place] # (Auto) 0.4 (0.0-0.8) K/uL Eos # (Auto) 0.1 (0.0-0.7) K/uL Baso # (Auto) 0.0 (0.0-0.1) K/uL Nucleated RBC % 0.0 /100WBC Nucleated RBCs # 0 K/uL INR 1.22 Sodium 139 (136-148) mmol/L Potassium 3.7 (3.5-5.1) mmol/L Chloride 101 (98-107) mmol/L Carbon Dioxide 26.4 (21.0-32.0) mmol/L BUN 8 (7.0-18.0) mg/dL Creatinine 0.9 (0.8-1.3) mg/dL Est Cr Clr Drug Dosing 108.51 mL/min Estimated GFR (MDRD) > 60.0 ml/min Glucose 234 H (74-106) mg/dL POC Glucose (60-110) mg/dL Calcium 9.0 (8.5-10.1) mg/dL Total Bilirubin 0.3 (0.2-1.0) mg/dL AST 37 (15-37) IU/L ALT 34 (14-63) IU/L Alkaline Phosphatase 61 (46-116) U/L Troponin I < 0.050 (0.000-0.056) ng/mL B-Natriuretic Peptide (<100) PG/ML Total Protein 6.9 (6.4-8.2) g/dL Albumin 3.2 L (3.4-5.0) g/dL Globulin 3.7 (2.6-4.0) g/dL Albumin/Globulin Ratio 0.9 (0.9-1.6) 02/15/19 02/15/19 Range/Units 09:17 13:30 WBC (4.0-11.0) K/uL RBC (4.50-5.90) M/uL Hgb (13.0-17.0) g/dL Hct (38.0-50.0) % MCV (80.0-98.0) fL MCH (27.0-32.0) pg MCHC (31.0-37.0) g/dL RDW Std Deviation (28.0-62.0) fl RDW Coeff of Blank (11.0-15.0) % Plt Count (150-400) K/uL MPV (7.40-12.00) fL Neut % (Auto) (48.0-80.0) % Lymph % (Auto) (16.0-40.0) % [place] % (Auto) (0.0-15.0) % Eos % (Auto) (0.0-7.0) % Baso % (Auto) (0.0-1.5) % Neut # (Auto) (1.4-5.7) K/uL Lymph # (Auto) (0.6-2.4) K/uL [place] # (Auto) (0.0-0.8) K/uL Eos # (Auto) (0.0-0.7) K/uL Baso # (Auto) (0.0-0.1) K/uL Nucleated RBC % /100WBC Nucleated RBCs # K/uL INR Sodium (136-148) mmol/L Potassium (3.5-5.1) mmol/L Chloride (98-107) mmol/L Carbon Dioxide (21.0-32.0) mmol/L BUN (7.0-18.0) mg/dL Creatinine (0.8-1.3) mg/dL Est Cr Clr Drug Dosing mL/min Estimated GFR (MDRD) ml/min Glucose (74-106) mg/dL POC Glucose 150 H (60-110) mg/dL Calcium (8.5-10.1) mg/dL Total Bilirubin (0.2-1.0) mg/dL AST (15-37) IU/L ALT (14-63) IU/L Alkaline Phosphatase (46-116) U/L Troponin I (0.000-0.056) ng/mL B-Natriuretic Peptide 36 (<100) PG/ML Total Protein (6.4-8.2) g/dL Albumin (3.4-5.0) g/dL Globulin (2.6-4.0) g/dL Albumin/Globulin Ratio (0.9-1.6) Result Diagrams: 02/15/19 09:17 02/15/19 09:17 EKG INTERPRETATION Rhythm: NSR Rate (Beats/Min): 82 P-Wave: Present QRS: Normal ST-T: Normal QT: Normal *Q Meaningful Use (ADM) - VTE Risk Assess *Q Each Risk Factor Represents 1 Point: Age 41 - 59 years, Obesity ( BMI > 25 kg/m2 ) Total Score 1 Point Risk Factors: 2 Each Risk Factor Represents 2 Points: None Total Score 2 Point Risk Factors: 0 Each Risk Factor Represents 3 Points: None Total Score 3 Point Risk Factors: 0 Each Risk Factor Represents 5 Points: None Total Score 5 Point Risk Factors: 0 Venous Thromboembolism Risk Factor Score *Q: 2 - Problem List (1) Dyspnea SNOMED Code(s): 099538399 ICD Code: R06.00 - DYSPNEA, UNSPECIFIED Status: Acute Current Visit: Yes Qualifiers: Dyspnea type: other forms of dyspnea Qualified Code(s): R06.09 - Other forms of dyspnea (2) Non-healing wound SNOMED Code(s): 331403997 ICD Code: MWM5142 - Status: Acute Current Visit: Yes (3) HTN (hypertension) SNOMED Code(s): 61547126 ICD Code: I10 - ESSENTIAL (PRIMARY) HYPERTENSION Status: Chronic Current Visit: Yes (4) Non compliance with medical treatment SNOMED Code(s): 4053688 ICD Code: Z91.19 - PATIENT'S NONCOMPLIANCE W OTH MEDICAL TREATMENT AND REGIMEN Status: Chronic Current Visit: Yes (5) DE (obstructive sleep apnea) SNOMED Code(s): 86422160 ICD Code: G47.33 - OBSTRUCTIVE SLEEP APNEA (ADULT) (PEDIATRIC) Status: Chronic Current Visit: Yes (6) Anxiety SNOMED Code(s): 47607663 ICD Code: F41.9 - ANXIETY DISORDER, UNSPECIFIED Status: Chronic Current Visit: No (7) History of alcohol abuse SNOMED Code(s): 798638342 ICD Code: Z87.898 - PERSONAL HISTORY OF OTHER SPECIFIED CONDITIONS Status: Chronic Current Visit: No (8) History of diabetes mellitus, type II SNOMED Code(s): 326382509 ICD Code: Z86.39 - PERSONAL HISTORY OF ENDO, NUTRITIONAL AND METABOLIC DISEASE Status: Chronic Current Visit: No Problem List Initiated/Reviewed/Updated: Yes Orders Last 24hrs: Active Orders 24 hr Category Date Time Status Patient Status [ADT] Stat ADT 02/15/19 10:55 Active Blood Glucose Check, Bedside [RC] TIDAC Care 02/15/19 12:49 Active CIWAA Assessment [RC] Q4H Care 02/15/19 12:48 Active Cardiac Monitoring [RC] . DIRECTED Care 02/15/19 09:03 Active EKG Documentation Completion [RC] STAT Care 02/15/19 09:03 Active Oxygen Therapy [RC] PRN Care 02/15/19 12:47 Active Pulse Oximetry [RC] ASDIRECTED Care 02/15/19 09:03 Active Telemetry Monitoring [Cardiac Monitoring] [RC] . Care 02/15/19 12:46 Active DIRECTED Up ad Shelia [RC] ASDIRECTED Care 02/15/19 12:47 Active VTE/DVT Education [RC] PER UNIT ROUTINE Care 02/15/19 12:47 Active Vital Signs [RC] Q12H Care 02/15/19 12:47 Active 2 Gram Sodium Diet [DIET] Diet 02/15/19 Lunch Active Echo Comp wo Cont [US] Urgent Exams 02/15/19 13:09 Ordered LIPID PANEL [CHEM] AM Lab 02/16/19 05:11 Ordered Insulin Aspart [NovoLOG] Med 02/15/19 12:49 Active See Protocol SUBCUT TIDAC LORazepam [Ativan] Med 02/15/19 12:47 Active See Protocol IV Q2H PRN Lisinopril [Prinivil] Med 02/15/19 13:15 Active 10 mg PO DAILY Ondansetron [Zofran] Med 02/15/19 12:47 Active 4 mg IVPUSH Q4H PRN Sodium Chloride 0.9% [Saline Flush] Med 02/15/19 09:04 Active 10 ml FLUSH ASDIRECTED PRN Sodium Chloride 0.9% [Saline Flush] Med 02/15/19 09:04 Active 2.5 ml FLUSH ASDIRECTED PRN Saline Lock Insert [OM.PC] Stat Oth 02/15/19 09:03 Ordered Medication Orders Insulin Aspart (Novolog) 0 unit SUBCUT TIDAC CLAUDIO; Protocol Lisinopril (Prinivil) 10 mg PO DAILY CLAUDIO Lorazepam (Ativan) 0 mg IV Q2H PRN; Protocol PRN Reason: CIWAA Ondansetron HCl (Zofran) 4 mg IVPUSH Q4H PRN PRN Reason: Nausea Sodium Chloride (Saline Flush) 10 ml FLUSH ASDIRECTED PRN PRN Reason: Keep Vein Open Sodium Chloride (Saline Flush) 2.5 ml FLUSH ASDIRECTED PRN PRN Reason: Keep Vein Open Assessment/Plan Comment:: This 54 year old male admitted with dyspnea and anxiety, possible alcohol withdrawal 1. Dyspnea: CxR negative. Has history of DE but he is unable tolerate CPAP. Pulse ox overnight tonight to monitor. Obtain ECHO. Monitor on telemetry. Will start Advair. Monitor. Recommended PFT as outpatient. 2. HTN: Elevated on arrival. No chest pain. Restart Lisinopril. Monitor. Slowly decrease. 3. Non healing wound: Curbsided Dr Wang. Recommended CT with po contrast to rule out fistula. 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 Follow up with Surgery as outpatient. 4.Alcohol withdrawal: CIWAA protocol. Ativan PRN. Thiamine and Folic acid 5. DM Type 2: Novolog SSI, restart long acting, 20 units tonight and titrate up. Dm education. Monitor labwork in am. VTE Prophylaxis: Lovenox Dispo: 1-2 days. - Mortality Measure Prognosis:: Good
[2019-02-15] MEDS: Insulin Aspart 100 Units/ML 3 ML Pen SUBCUT SCH ×2 (14:11→17:48)
[2019-02-15] MEDS ORDERED: Albuterol/Ipratropium 3.0-0.5 MG/3 ML Neb Soln NEB PRN (14:26)
[2019-02-15] MEDS: Fluticasone/Salmeterol 250-50 MCG Inhalation Powder 14/Diskus INH SCH ×2 (15:03→21:10)
[2019-02-15] MEDS ORDERED: Enoxaparin 40 MG/0.4 ML Syringe SUBCUT SCH (16:30)
[2019-02-15] MEDS ORDERED: Labetalol 100 MG/20 ML MDV IVPUSH PRN (16:46)
[2019-02-15] MEDS ORDERED: cloNIDine 0.1 MG Tab PO PRN (16:47)
[2019-02-15] MEDS ORDERED: Insulin Glargine,Human Rec. Analog 100 Units/ML 3 ML Pen SUBCUT SCH (21:00)
[2019-02-15] MEDS: LORazepam 2 MG/ML SDV IV PRN (21:24)
--- NOTE | 2019-02-15 21:24 | CT ---
INDICATION: Possible fistula in incision near mesh repair. COMPARISON: None available TECHNIQUE: CT examination of the abdomen and pelvis was performed without contrast enhancement using 3 mm thick axial sections from the lung bases through the pubic symphysis. Oral contrast was administered. Please note that all CT scans at this facility use dose modulation, iterative reconstruction, and/or weight-based dosing when appropriate to reduce radiation dose to as low as reasonably achievable. FINDINGS: There is a small, lobulated fluid collection located at the midline of the anterior superior abdominal wall measuring 3.8 x 2.4 x 3.4 centimeters. This appears to be a small abscess or postoperative seroma. It extends from the skin through the fascia of the anterior abdominal wall to reach the peritoneal cavity. There is no sign of recurrence of a hernia in this region. There is no sign of any connection to the adjacent transverse colon. In the abdomen, the unenhanced liver, spleen, pancreas, and adrenals are normal in appearance. The unenhanced kidneys are normal in appearance. The gallbladder is normal in appearance. The abdominal aorta is normal in caliber with no sign of dilatation. There is no sign of retroperitoneal mass or adenopathy. The stomach, loops of small bowel, and colon in the abdomen are normal in appearance. There is weakening of the fascia in the periumbilical region, with no sign of a hernia. In the pelvis, the appendix is nonvisualized, but there is no sign of an inflammatory process in the area of the appendix. Surgical clips are seen in the area of the appendix consistent with appendectomy. The loops of small bowel and colon in the pelvis are normal in appearance. The prostate is normal in appearance. The urinary bladder is normal in appearance. There is no sign of pelvic or inguinal mass or adenopathy. There is a small fat containing left indirect inguinal hernia. There are small calcified granulomata in the subpleural posterior lung bases bilaterally. The lung bases are otherwise clear. The osseous structures are normal in appearance for the patient`s age. IMPRESSION: CT of the abdomen shows a small lobular fluid collection in the midline of the anterior superior abdominal wall consistent with a small abscess or postoperative seroma. It measures 3.8 x 2.4 x 3.4 centimeters and extends from the surface of skin through the fascia of the anterior abdominal wall to reach the peritoneal cavity. No sign of any associated fistula. CT of the pelvis shows changes consistent with appendectomy. Small fat containing left indirect inguinal hernia. Please note that all CT scans at this facility use dose modulation, iterative reconstruction, and/or weight-based dosing when appropriate to reduce radiation dose to as low as reasonably achievable. Dictated by Hugo Quna MD @ Feb 15 2019 9:14PM Signed by Dr. Hugo Quan @ Feb 15 2019 9:22PM
[2019-02-15] MEDS: Famotidine 20 MG Tab PO SCH (21:25)
[2019-02-16] MEDS: Insulin Aspart 100 Units/ML 3 ML Pen SUBCUT SCH ×2 (06:34→12:09)
[2019-02-16 06:45] LABS: BLOOD UREA NITROGEN,BUN 9 mg/dL (7.0-18.0); CHLORIDE,CL 103 mmol/L (98-107); GLUCOSE RANDOM 111 mg/dL (74-106); POTASSIUM,K 3.5 mmol/L (3.5-5.1); SODIUM,NA 140 mmol/L (136-148)
[2019-02-16 06:46] LABS: HEMOGLOBIN A1C 8.5 % (4.5-6.2)
[2019-02-16] MEDS ORDERED: Lisinopril 10 MG Tab PO SCH (09:00)
[2019-02-16] MEDS ORDERED: Folic Acid 50 MG/10 ML MDV SUBCUT SCH (09:00)
[2019-02-16] MEDS ORDERED: Thiamine 100 MG in Sodium Chloride 0.9% 100 ML IV SCH (09:00)
[2019-02-16] MEDS: Famotidine 20 MG Tab PO SCH (09:08)
[2019-02-16] MEDS: Fluticasone/Salmeterol 250-50 MCG Inhalation Powder 14/Diskus INH SCH (09:15)
[2019-02-16] MEDS ORDERED: Acetaminophen 325 MG Tab PO PRN (09:27)
[2019-02-16] MEDS: LORazepam 2 MG/ML SDV IV PRN (09:40)
--- NOTE | 2019-02-16 12:02 | PCM.DCSUM1 ---
Discharge Summary - Hospital Course Brief History: This 54 year old male with pmh of HTN, dyslipidemia, pacemaker, DE, DM type 2 and history of alcohol abuse presented to the ED with concerns of shortness of breath. He reports he started having shortness of breath last evening and got very anxious about it. He reports this shortness of breath started when he was sleeping, he would fall asleep and wake up short of breath and he progressively got anxious about this. He felt this is how it was when he was brought to the ED and needed his pacemaker placed. He denies chest pain or palpitations. He denies cough or fevers. Reports some sinus congestion. No other URI symptoms. He denies abdominal pain or urinary concerns. No headache or neurological deficits. He reports a wound to his abdomen that is non healing for 3 years since laparotomy and mesh placement. He reports not having all of his medications, mostly his Lisinopril and Levemir. He has been out for an unknown about of time. He reports he used to drink alcohol heavily went into treatment 2015, was sober for 1 year, then started drinking again. He reports he does not drink to the point of intoxication, but reports drinking almost daily. He does not feel tremors when he doesn't drink. He reports he smokes 2 ppd and no recreational drug use. In the ED CBC WNL. INR 1.22, BMP WNL. glucose 234. CXR negative. EKG SR rates 80s no ischemic changes. BP 180-200/ 110s. he was given 2 mg Ativan and Nitro paste placed. Troponin negative. Diagnosis: Stroke: No - Discharge Data Discharge Date: 02/16/19 Discharge Disposition: Home, Self-Care 01 Condition: Good - Referral to Home Health Primary Care Physician: PCP None - Discharge Diagnosis/Problem(s) (1) Dyspnea SNOMED Code(s): 253293819 ICD Code: R06.00 - DYSPNEA, UNSPECIFIED Status: Acute Qualifiers: Dyspnea type: other forms of dyspnea Qualified Code(s): R06.09 - Other forms of dyspnea (2) Non-healing wound SNOMED Code(s): 115477772 ICD Code: MIE2478 - Status: Acute (3) HTN (hypertension) SNOMED Code(s): 70189177 ICD Code: I10 - ESSENTIAL (PRIMARY) HYPERTENSION Status: Chronic (4) Non compliance with medical treatment SNOMED Code(s): 6203114 ICD Code: Z91.19 - PATIENT'S NONCOMPLIANCE W OTH MEDICAL TREATMENT AND REGIMEN Status: Chronic (5) DE (obstructive sleep apnea) SNOMED Code(s): 45920404 ICD Code: G47.33 - OBSTRUCTIVE SLEEP APNEA (ADULT) (PEDIATRIC) Status: Chronic (6) Anxiety SNOMED Code(s): 30498699 ICD Code: F41.9 - ANXIETY DISORDER, UNSPECIFIED Status: Chronic (7) History of alcohol abuse SNOMED Code(s): 740642312 ICD Code: Z87.898 - PERSONAL HISTORY OF OTHER SPECIFIED CONDITIONS Status: Chronic (8) History of diabetes mellitus, type II SNOMED Code(s): 647988474 ICD Code: Z86.39 - PERSONAL HISTORY OF ENDO, NUTRITIONAL AND METABOLIC DISEASE Status: Chronic - Patient Summary/Data Consults: Consultations 02/15/19 14:06 Consult to Diabetic Nurse Specialist [CONS] Routine 02/15/19 14:30 Wound Tool Distributor Consult [Consult to Wound Care Services] [CONS] Routine - Patient Instructions Diet: Diabetic Diet Activity: As Tolerated Showering/Bathing: May Shower Notify Provider of: Fever, Increased Pain, Swelling and Redness, Drainage, Nausea and/or Vomiting Other/Special Instructions: Monitor blood sugars daily. Monitor blood pressures at home as well. follow up with Dr Wang, general surgery for evaluation of abdominal wound. Pulmonary function test to evaluate for COPD. - Discharge Plan *PRESCRIPTION DRUG MONITORING PROGRAM REVIEWED*: Not Applicable *COPY OF PRESCRIPTION DRUG MONITORING REPORT IN PATIENT TORRI: Not Applicable Prescriptions/Med Rec: Albuterol [Proventil HFA] 2 puff INH Q4H PRN #1 inhaler PRN Reason: wheezing/shortness of breath Fluticasone/Salmeterol [Advair 250-50] 1 puff INH BID #1 diskus glipiZIDE [Glucotrol] 10 mg PO DAILY #30 tablet Insulin Detemir [Levemir] 20 unit SQ DAILY #1 box Lisinopril 20 mg PO DAILY #30 tablet metFORMIN HCl [Metformin HCl] 1,000 mg PO BID #60 tablet Pen Needle, Diabetic [Advocate Pen Needle] 1 each MC DAILY #1 box Home Medications: Home Meds FLUoxetine [PROzac] 10 mg PO DAILY 06/08/18 [History] Omeprazole 20 mg PO DAILY 06/08/18 [History] hydrOXYzine HCl [hydrOXYzine] 25 mg PO Q6H PRN #15 tab 06/14/18 [Rx] Famotidine 20 mg PO BID 02/15/19 [History] Albuterol [Proventil HFA] 2 puff INH Q4H PRN #1 inhaler 02/16/19 [Rx] Fluticasone/Salmeterol [Advair 250-50] 1 puff INH BID #1 diskus 02/16/19 [Rx] Insulin Detemir [Levemir] 20 unit SQ DAILY #1 box 02/16/19 [Rx] Lisinopril 20 mg PO DAILY #30 tablet 02/16/19 [Rx] Pen Needle, Diabetic [Advocate Pen Needle] 1 each MC DAILY #1 box 02/16/19 [Rx] glipiZIDE [Glucotrol] 10 mg PO DAILY #30 tablet 02/16/19 [Rx] metFORMIN HCl [Metformin HCl] 1,000 mg PO BID #60 tablet 02/16/19 [Rx] Oxygen Therapy Mode: Room Air Patient Handouts: Glipizide tablets, Shortness of Breath, Adult, [id number], Metformin extended-release tablets, Albuterol inhalation aerosol, Insulin Detemir injection, Lisinopril tablets, Fluticasone; Salmeterol inhalation aerosol, Alcohol Withdrawal Syndrome, [id number] Referrals: Marquita Wang MD [Physician] - 02/23/19 8:30 am Zac Saucedo MD [Resident] - 02/28/19 2:00 pm - Discharge Summary/Plan Comment DC Time >30 min.: No Discharge Summary/Plan Comment: Admitting Diagnoses: Dyspnea HTN Discharge Diagnoses: DYspnea- suspected COPD HTN Abdominal wall seroma, chronic wound Other PMH: Alcohol abuse Tobacco abuse DM Type 2- non complaint Moise was admitted for dyspnea, he was reporting waking up and feeling very short of breath. ECHO pending. CHF possible due to untreated DE, but no CXR findings and no edema noted. Suspected COPD, started on ADvair and he reports that helped his breathing significantly. Blood pressure was severely elevated on arrival, he reports he ran out of Lisinopril. This was restarted at 10 mg with suboptimal improvement, increased to 20 mg and BP decreased from 200 to 150s SBP. He was very eager for discharge home today. He is stable, will refill Lisinopril and Levemir. Continue all other home medications. He is to follow up with PCP and RT for PFT as outpatient. Regarding chronic non healing abdominal incisional wound. CT of abdomen was obtained per recommendations of Dr Wang. This revealed lobulated fluid collection at the midline anterior superior abdominal wall, small abscess or seroma. Discussed findings with Dr Wang, recommends follow up with her in the clinic for surgical options. Moise was happy with this. site is clean scabbed over, no erythema, no fevers or leukocytosis. He is to return to ED or clinic if concerns should arise. - Patient Data Vitals - Most Recent: Last Vital Signs Temp 96.5 F 02/16/19 07:45 Pulse 80 02/16/19 07:45 Resp 18 02/16/19 07:45 BP 155/89 H 02/16/19 09:06 Pulse Ox 96 02/16/19 07:45 Weight - Most Recent: 115.757 kg I&O - Last 24 hours: Intake & Output 02/15/19 02/16/19 02/16/19 22:59 06:59 14:59 Intake Total 500 700 Output Total 525 450 Balance -25 250 Lab Results - Last 24 hrs: Laboratory Results - last 24 hr 02/15/19 02/15/19 02/15/19 Range/Units 13:30 16:41 20:29 WBC (4.0-11.0) K/uL RBC (4.50-5.90) M/uL Hgb (13.0-17.0) g/dL Hct (38.0-50.0) % MCV (80.0-98.0) fL MCH (27.0-32.0) pg MCHC (31.0-37.0) g/dL RDW Std Deviation (28.0-62.0) fl RDW Coeff of Blank (11.0-15.0) % Plt Count (150-400) K/uL MPV (7.40-12.00) fL Neut % (Auto) (48.0-80.0) % Lymph % (Auto) (16.0-40.0) % Terry % (Auto) (0.0-15.0) % Eos % (Auto) (0.0-7.0) % Baso % (Auto) (0.0-1.5) % Neut # (Auto) (1.4-5.7) K/uL Lymph # (Auto) (0.6-2.4) K/uL Terry # (Auto) (0.0-0.8) K/uL Eos # (Auto) (0.0-0.7) K/uL Baso # (Auto) (0.0-0.1) K/uL Nucleated RBC % /100WBC Nucleated RBCs # K/uL Sodium (136-148) mmol/L Potassium (3.5-5.1) mmol/L Chloride (98-107) mmol/L Carbon Dioxide (21.0-32.0) mmol/L BUN (7.0-18.0) mg/dL Creatinine (0.8-1.3) mg/dL Est Cr Clr Drug Dosing mL/min Estimated GFR (MDRD) ml/min Glucose (74-106) mg/dL POC Glucose 150 H 153 H 126 H (60-110) mg/dL Hemoglobin A1c (4.5-6.2) % Calcium (8.5-10.1) mg/dL Triglycerides (0-200) mg/dL Cholesterol (50-200) mg/dL LDL Cholesterol, Calc (60-180) mg/dL VLDL Cholesterol (5-55) mg/dL HDL Cholesterol (40-60) mg/dL Cholesterol/HDL Ratio (3.3-6.0) 02/16/19 02/16/19 02/16/19 Range/Units 05:59 05:59 05:59 WBC 6.98 (4.0-11.0) K/uL RBC 4.46 L (4.50-5.90) M/uL Hgb 14.1 (13.0-17.0) g/dL Hct 41.4 (38.0-50.0) % MCV 92.8 (80.0-98.0) fL MCH 31.6 (27.0-32.0) pg MCHC 34.1 (31.0-37.0) g/dL RDW Std Deviation 43.6 (28.0-62.0) fl RDW Coeff of Blank 13 (11.0-15.0) % Plt Count 125 L (150-400) K/uL MPV 9.40 (7.40-12.00) fL Neut % (Auto) 59.5 (48.0-80.0) % Lymph % (Auto) 30.8 (16.0-40.0) % Terry % (Auto) 7.0 (0.0-15.0) % Eos % (Auto) 2.4 (0.0-7.0) % Baso % (Auto) 0.3 (0.0-1.5) % Neut # (Auto) 4.2 (1.4-5.7) K/uL Lymph # (Auto) 2.2 (0.6-2.4) K/uL Terry # (Auto) 0.5 (0.0-0.8) K/uL Eos # (Auto) 0.2 (0.0-0.7) K/uL Baso # (Auto) 0.0 (0.0-0.1) K/uL Nucleated RBC % 0.0 /100WBC Nucleated RBCs # 0 K/uL Sodium 140 (136-148) mmol/L Potassium 3.5 (3.5-5.1) mmol/L Chloride 103 (98-107) mmol/L Carbon Dioxide 29.0 (21.0-32.0) mmol/L BUN 9 (7.0-18.0) mg/dL Creatinine 0.8 (0.8-1.3) mg/dL Est Cr Clr Drug Dosing 118.56 mL/min Estimated GFR (MDRD) > 60.0 ml/min Glucose 111 H (74-106) mg/dL POC Glucose (60-110) mg/dL Hemoglobin A1c 8.5 H (4.5-6.2) % Calcium 8.1 L (8.5-10.1) mg/dL Triglycerides 230 H (0-200) mg/dL Cholesterol 129 (50-200) mg/dL LDL Cholesterol, Calc 51 L (60-180) mg/dL VLDL Cholesterol 46 (5-55) mg/dL HDL Cholesterol 32 L (40-60) mg/dL Cholesterol/HDL Ratio 4.0 (3.3-6.0) 02/16/19 Range/Units 06:14 WBC (4.0-11.0) K/uL RBC (4.50-5.90) M/uL Hgb (13.0-17.0) g/dL Hct (38.0-50.0) % MCV (80.0-98.0) fL MCH (27.0-32.0) pg MCHC (31.0-37.0) g/dL RDW Std Deviation (28.0-62.0) fl RDW Coeff of Blank (11.0-15.0) % Plt Count (150-400) K/uL MPV (7.40-12.00) fL Neut % (Auto) (48.0-80.0) % Lymph % (Auto) (16.0-40.0) % Terry % (Auto) (0.0-15.0) % Eos % (Auto) (0.0-7.0) % Baso % (Auto) (0.0-1.5) % Neut # (Auto) (1.4-5.7) K/uL Lymph # (Auto) (0.6-2.4) K/uL Terry # (Auto) (0.0-0.8) K/uL Eos # (Auto) (0.0-0.7) K/uL Baso # (Auto) (0.0-0.1) K/uL Nucleated RBC % /100WBC Nucleated RBCs # K/uL Sodium (136-148) mmol/L Potassium (3.5-5.1) mmol/L Chloride (98-107) mmol/L Carbon Dioxide (21.0-32.0) mmol/L BUN (7.0-18.0) mg/dL Creatinine (0.8-1.3) mg/dL Est Cr Clr Drug Dosing mL/min Estimated GFR (MDRD) ml/min Glucose (74-106) mg/dL POC Glucose 97 (60-110) mg/dL Hemoglobin A1c (4.5-6.2) % Calcium (8.5-10.1) mg/dL Triglycerides (0-200) mg/dL Cholesterol (50-200) mg/dL LDL Cholesterol, Calc (60-180) mg/dL VLDL Cholesterol (5-55) mg/dL HDL Cholesterol (40-60) mg/dL Cholesterol/HDL Ratio (3.3-6.0) Med Orders - Current: Current Medications Acetaminophen (Tylenol) 650 mg PO Q4H PRN PRN Reason: Pain Last Admin: 02/16/19 09:59 Dose: 650 mg Albuterol/Ipratropium (Duoneb 3.0-0.5 Mg/3 Ml) 3 ml NEB Q4HRRT PRN PRN Reason: SOB/wheezing Clonidine HCl (Catapres) 0.1 mg PO Q8H PRN PRN Reason: SBP >185 and DBP >110 Last Admin: 02/15/19 23:25 Dose: 0.1 mg Enoxaparin Sodium (Lovenox) 40 mg SUBCUT Q24H [facility] Last Admin: 02/15/19 16:50 Dose: 40 mg Famotidine (Pepcid) 20 mg PO BID [facility] Last Admin: 02/16/19 09:08 Dose: 20 mg Fluoxetine HCl (Prozac) 10 mg PO DAILY [facility] Last Admin: 02/16/19 09:08 Dose: 10 mg Folic Acid (Folic Acid) 1 mg SUBCUT DAILY [facility] Last Admin: 02/16/19 09:08 Dose: 1 mg Thiamine HCl 100 mg/ Sodium (Chloride) 101 mls @ 202 mls/hr IV DAILY [facility] Last Admin: 02/16/19 10:00 Dose: 202 mls/hr Insulin Aspart (Novolog) 0 unit SUBCUT TIDAC [facility]; Protocol Last Admin: 02/16/19 06:34 Dose: Not Given Insulin Glargine (Lantus Solostar) 20 units SUBCUT BEDTIME [facility] Last Admin: 02/15/19 21:25 Dose: 20 units Lisinopril (Prinivil) 20 mg PO DAILY [facility] Last Admin: 02/16/19 09:06 Dose: 20 mg Lorazepam (Ativan) 0 mg IV Q2H PRN; Protocol PRN Reason: CIWAA Last Admin: 02/16/19 09:40 Dose: 1 mg Ondansetron HCl (Zofran) 4 mg IVPUSH Q4H PRN PRN Reason: Nausea Fluticasone/Salmeterol (Advair Diskus 250-50) 1 puff INH BID [facility] Last Admin: 02/16/19 09:15 Dose: 1 inhalation Sodium Chloride (Saline Flush) 10 ml FLUSH ASDIRECTED PRN PRN Reason: Keep Vein Open Sodium Chloride (Saline Flush) 2.5 ml FLUSH ASDIRECTED PRN PRN Reason: Keep Vein Open Discontinued Medications Aspirin (Aspirin) 324 mg PO ONETIME ONE Stop: 02/15/19 09:05 Last Admin: 02/15/19 09:14 Dose: 324 mg Multivitamins/Minerals 10 ml/Thiamine HCl 100 mg/ Folic Acid 1 mg/ Sodium Chloride 1,011.2 mls @ 999 mls/hr IV ONETIME ONE Stop: 02/15/19 11:33 Last Admin: 02/15/19 10:51 Dose: 999 mls/hr Labetalol HCl (Normodyne) 10 mg IVPUSH Q6H PRN PRN Reason: SBP >185 and DBP >110 Lisinopril (Prinivil) 10 mg PO DAILY CLAUDIO Last Admin: 02/15/19 14:09 Dose: 10 mg Lorazepam (Ativan) 1 mg IVPUSH ONETIME ONE Stop: 02/15/19 09:05 Last Admin: 02/15/19 09:15 Dose: 1 mg Lorazepam (Ativan) 1 mg IVPUSH ONETIME ONE Stop: 02/15/19 10:34 Last Admin: 02/15/19 10:39 Dose: 1 mg Lorazepam (Ativan) Confirm Administered Dose 2 mg .ROUTE .STK-MED ONE Stop: 02/15/19 10:36 Last Admin: 02/15/19 10:57 Dose: Not Given Nitroglycerin (Nitro-Bid 2%) 1 gm TOP ONETIME ONE Stop: 02/15/19 09:05 Last Admin: 02/15/19 09:15 Dose: 1 gm
--- NOTE | 2019-02-16 17:09 | ECHO ---
The echocardiogram report can be seen in this patient's EMR (Electronic Medical Record) in the REPORTS section. The echocardiogram report has also been scanned into PACS and can be seen there as well. AUDIE
== END 2019-02-16 13:14 | disposition home or self-care (01) ==
LOC: MW.ED 08:56 → MW.MS 10:55
PROVIDERS: ADMIT Internal Medicine; ATTEND Internal Medicine
DX: R06.09 Other forms of dyspnea (principal); I10 Essential (primary) hypertension; T81.89XA Other complications of procedures, not elsewhere classified, initial encounter; E78.5 Hyperlipidemia, unspecified; G47.33 Obstructive sleep apnea (adult) (pediatric); E11.9 Type 2 diabetes mellitus without complications; F41.9 Anxiety disorder, unspecified; Z95.0 Presence of cardiac pacemaker; Z91.19 Patient's noncompliance with other medical treatment and regimen; Z87.898 Personal history of other specified conditions; Z86.39 Personal history of other endocrine, nutritional and metabolic disease; Z79.899 Other long term (current) drug therapy; Z79.4 Long term (current) use of insulin
CPT/HCPCS: 36415; 71045; 74150; 80048; 80053; 80061; 82962; 83036; 83880; 84484; 85025; 85610; 93005; 93306; 94640; 96365; 96367; 96372; 96375; 96376; 99285; A9270; G0378; J1650; J1815; J2060; J3411; J7030; J7040; 99284

== ENCOUNTER 2019-03-07 19:11 | Emergency (ER) | payer MEDICAID ==
[2019-03-07] MEDS ORDERED: Ondansetron 4 MG/2 ML SDV IVPUSH ONE (19:30)
[2019-03-07] MEDS ORDERED: LORazepam 2 MG/ML SDV IVPUSH ONE (19:30)
[2019-03-07] MEDS ORDERED: Sodium Chloride 0.9% 1,000 ML IV ONE (19:30)
--- NOTE | 2019-03-07 19:36 | EDM.PDOCBH ---
ED HPI GENERAL MEDICAL PROBLEM - General Chief Complaint: Drug or Alcohol Abuse Stated Complaint: ALCOHOL WITHDRAWL Time Seen by Provider: 03/07/19 19:27 Source of Information: Reports: Patient History Limitations: Reports: No Limitations - History of Present Illness INITIAL COMMENTS - FREE TEXT/NARRATIVE: HISTORY AND PHYSICAL: History of present illness: Patient is a 54-year-old male who presents to the emergency room today with complaints of shortness of breath, tremors, nausea and feeling of anxiety. He states he is a chronic alcoholic and does routinely drink. He states his last alcoholic beverage was last evening. He reports he goes back and forth between wanting alcohol treatment and to continue drinking. He states anytime he abstains from alcohol he does feel like he has a panic attack and has increased shortness of breath. He was recently admitted to our hospital for alcohol withdrawal last month. He states as soon as he was discharged he started drinking again. Patient denies any fever, chills, headache, change in vision, syncope or near syncope. Denies any chest pain, back pain or cough. Denies any abdominal pain, vomiting, diarrhea, constipation or dysuria. Has not noted any blood in urine or stool. Patient has been eating and drinking appropriately. Review of systems: As per history of present illness and below otherwise all systems reviewed and negative. Past medical history: As per history of present illness and as reviewed below otherwise noncontributory. Surgical history: As per history of present illness and as reviewed below otherwise noncontributory. Social history: See social history for further information Family history: As per history of present illness and as reviewed below otherwise noncontributory. Physical exam: General: Well-developed and well-nourished 54-year-old male. Alert and oriented. Nontoxic appearing and in no acute distress. HEENT: Atraumatic, normocephalic, pupils equal and reactive bilaterally, negative for conjunctival pallor or scleral icterus, mucous membranes moist, trachea midline. No drooling or trismus noted. No meningeal signs. No hot potato voice noted. Lungs: Clear to auscultation, breath sounds equal bilaterally, chest nontender. Heart: S1S2, regular rate and rhythm without overt murmur Abdomen: Soft, nondistended, nontender. Negative for masses or hepatosplenomegaly. Negative for costovertebral tenderness. Pelvis: Stable nontender. Skin: Intact, warm, dry. No lesions or rashes noted. Extremities: Atraumatic, moves all extremities per self without difficulty or deficits, negative for cords or calf pain. Neurovascular unremarkable. Neuro: Awake, alert, oriented. Cranial nerves II through XII unremarkable. Cerebellum unremarkable. Motor and sensory unremarkable throughout. Exam nonfocal. Notes: Patient states that he does not have any intention of being admitted. He states he just feels very anxious and would like symptomatic relief. He does have a family member who will drive him home after today's evaluation and therapeutics. We discussed treatment programs; he states he would be interested in treatment program - but not interested in admission or transfer. Lab work is unremarkable. Vital signs have improved after IV fluids and medications. He is agreeable to discharge to home. Supportive care measures were reviewed and discussed. Voices understanding and is agreeable to plan of care. Denies any further questions or concerns at this time. Diagnostics: CBC, CMP, EKG Therapeutics: IV fluids, Zofran, Ativan Prescription: None Impression: Anxiety Alcohol Abuse Plan: 1. Please find an alcohol treatment program 2. Follow up with a primary care provider as we discussed 3. Return to the ED as needed as discussed. Definitive disposition and diagnosis as appropriate pending reevaluation and review of above. - Related Data Allergies Allergy/AdvReac Type Severity Reaction Status Date / Time No Known Allergies Allergy Verified 03/07/19 19:27 Home Meds: Home Meds FLUoxetine [PROzac] 40 mg PO DAILY 06/08/18 [History] Famotidine 20 mg PO BID 02/15/19 [History] Albuterol [Proventil HFA] 2 puff INH Q4H PRN #1 inhaler 02/16/19 [Rx] Fluticasone/Salmeterol [Advair 250-50] 1 puff INH BID #1 diskus 02/16/19 [Rx] Insulin Detemir [Levemir] 20 unit SQ DAILY #1 box 02/16/19 [Rx] Lisinopril 20 mg PO DAILY #30 tablet 02/16/19 [Rx] glipiZIDE [Glucotrol] 10 mg PO DAILY #30 tablet 02/16/19 [Rx] metFORMIN HCl [Metformin HCl] 1,000 mg PO BID #60 tablet 02/16/19 [Rx] Past Medical History HEENT History: Reports: Impaired Vision Cardiovascular History: Reports: Hypertension, Pacemaker. Denies: Afib, Blood Clots/VTE/DVT, CAD, [place], Stents Respiratory History: Reports: None. Denies: COPD Gastrointestinal History: Reports: None, Other (See Below) Other Gastrointestinal History: polyps removed Genitourinary History: Reports: None. Denies: Chronic Renal Insuffiency Musculoskeletal History: Reports: None Neurological History: Reports: Neuropathy, Diabetic Psychiatric History: Reports: Anxiety, Depression, Panic Attack Endocrine/Metabolic History: Reports: Diabetes, Type II, Obesity/BMI 30+ Immunologic History: Reports: None Dermatologic History: Reports: None - Infectious Disease History Infectious Disease History: Reports: None - Past Surgical History GI Surgical History: Reports: Colonoscopy, Hernia Repair/Other (mech placement) Social & Family History - Family History Family Medical History: Noncontributory - Caffeine Use Caffeine Use: Reports: None - Living Situation & Occupation Living situation: Reports: Alone Occupation: Employed ED ROS GENERAL - Review of Systems Review Of Systems: ROS reveals no pertinent complaints other than HPI. ED EXAM, BEHAVIORAL HEALTH - Physical Exam Exam: See Below (See dictation) COURSE, BEHAVIORAL HEALTH COMP - Course Vital Signs: Last Vital Signs Temp 96.5 F 03/07/19 19:15 Pulse 100 03/07/19 19:15 Resp 20 03/07/19 19:15 BP 170/101 H 03/07/19 19:15 Pulse Ox 98 03/07/19 19:15 Orders, Labs, Meds: Active Orders 24 hr Category Date Time Status EKG Documentation Completion [RC] STAT Care 03/07/19 19:30 Active Sodium Chloride 0.9% [Normal Saline] 1,000 ml Med 03/07/19 19:30 Active IV STAT Medication Orders Sodium Chloride (Normal Saline) 1,000 mls @ 999 mls/hr IV STAT ONE Stop: 03/07/19 20:30 Last Admin: 03/07/19 19:45 Dose: 999 mls/hr Laboratory Tests 03/07/19 03/07/19 Range/Units 19:48 19:48 WBC 7.83 (4.0-11.0) K/uL RBC 5.04 (4.50-5.90) M/uL Hgb 16.5 (13.0-17.0) g/dL Hct 46.7 (38.0-50.0) % MCV 92.7 (80.0-98.0) fL MCH 32.7 H (27.0-32.0) pg MCHC 35.3 (31.0-37.0) g/dL RDW Std Deviation 45.6 (28.0-62.0) fl RDW Coeff of Blank 14 (11.0-15.0) % Plt Count 227 (150-400) K/uL MPV 9.80 (7.40-12.00) fL Neut % (Auto) 56.7 (48.0-80.0) % Lymph % (Auto) 34.5 (16.0-40.0) % [place] % (Auto) 6.6 (0.0-15.0) % Eos % (Auto) 1.4 (0.0-7.0) % Baso % (Auto) 0.8 (0.0-1.5) % Neut # (Auto) 4.4 (1.4-5.7) K/uL Lymph # (Auto) 2.7 H (0.6-2.4) K/uL [place] # (Auto) 0.5 (0.0-0.8) K/uL Eos # (Auto) 0.1 (0.0-0.7) K/uL Baso # (Auto) 0.1 (0.0-0.1) K/uL Nucleated RBC % 0.0 /100WBC Nucleated RBCs # 0 K/uL Sodium 141 (136-148) mmol/L Potassium 4.0 (3.5-5.1) mmol/L Chloride 104 (98-107) mmol/L Carbon Dioxide 23.2 (21.0-32.0) mmol/L BUN 8 (7.0-18.0) mg/dL Creatinine 1.0 (0.8-1.3) mg/dL Est Cr Clr Drug Dosing 94.84 mL/min Estimated GFR (MDRD) > 60.0 ml/min Glucose 120 H (74-106) mg/dL Calcium 8.6 (8.5-10.1) mg/dL Total Bilirubin 0.5 (0.2-1.0) mg/dL AST 40 H (15-37) IU/L ALT 45 (14-63) IU/L Alkaline Phosphatase 78 (46-116) U/L Total Protein 7.7 (6.4-8.2) g/dL Albumin 3.8 (3.4-5.0) g/dL Globulin 3.9 (2.6-4.0) g/dL Albumin/Globulin Ratio 1.0 (0.9-1.6) Medications Generic Name Dose Route Start Last Admin Trade Name Freq PRN Reason Stop Dose Admin Sodium Chloride 1,000 mls @ 999 mls/hr 03/07/19 19:30 03/07/19 19:45 Normal Saline IV 03/07/19 20:30 999 mls/hr STAT ONE Administration Discontinued Medications Generic Name Dose Route Start Last Admin Trade Name Freq PRN Reason Stop Dose Admin Lorazepam 1 mg 03/07/19 19:30 03/07/19 19:55 Ativan IVPUSH 03/07/19 19:31 1 mg ONETIME ONE Administration Ondansetron HCl 4 mg 03/07/19 19:30 03/07/19 19:55 Zofran IVPUSH 03/07/19 19:31 4 mg ONETIME ONE Administration Departure - Departure Time of Disposition: 20:20 Disposition: Home, Self-Care 01 Clinical Impression: Anxiety, Alcohol abuse - Discharge Information Referrals: PCP,None [Primary Care Provider] - Forms: ED Department Discharge Additional Instructions: The following information is given to patients seen in the emergency department who are being discharged to home. This information is to outline your options for follow-up care. We provide all patients seen in our emergency department with a follow-up referral. The need for follow-up, as well as the timing and circumstances, are variable depending upon the specifics of your emergency department visit. If you don't have a primary care physician on staff, we will provide you with a referral. We always advise you to contact your personal physician following an emergency department visit to inform them of the circumstance of the visit and for follow-up with them and/or the need for any referrals to a consulting specialist. The emergency department will also refer you to a specialist when appropriate. This referral assures that you have the opportunity for follow-up care with a specialist. All of these measure are taken in an effort to provide you with optimal care, which includes your follow-up. Under all circumstances we always encourage you to contact your private physician who remains a resource for coordinating your care. When calling for follow-up care, please make the office aware that this follow-up is from your recent emergency room visit. If for any reason you are refused follow-up, please contact the [facility] Emergency Department at and asked to speak to the emergency department charge nurse. [facility] [address] [place] [address] [facility] [address] [place] [id number] 1. Please find an alcohol treatment program 2. Follow up with a primary care provider as we discussed 3. Return to the ED as needed as discussed. - My Orders Last 24 Hours: My Active Orders 03/07/19 19:30 EKG Documentation Completion [RC] STAT Sodium Chloride 0.9% [Normal Saline] 1,000 ml IV STAT - Assessment/Plan Last 24 Hours: My Active Orders 03/07/19 19:30 EKG Documentation Completion [RC] STAT Sodium Chloride 0.9% [Normal Saline] 1,000 ml IV STAT
[2019-03-07 20:16] LABS: BLOOD UREA NITROGEN,BUN 8 mg/dL (7.0-18.0); CARBON DIOXIDE,CO2 23.2 mmol/L (21.0-32.0); CHLORIDE,CL 104 mmol/L (98-107); GLUCOSE RANDOM 120 mg/dL (74-106); SODIUM,NA 141 mmol/L (136-148)
== END 2019-03-07 20:55 | disposition home or self-care (01) ==
LOC: MW.ED 19:11
DX: F41.9 Anxiety disorder, unspecified (principal); F10.20 Alcohol dependence, uncomplicated; I10 Essential (primary) hypertension; E11.40 Type 2 diabetes mellitus with diabetic neuropathy, unspecified; F32.9 Major depressive disorder, single episode, unspecified; E66.9 Obesity, unspecified; Z68.35 Body mass index [BMI] 35.0-35.9, adult; Z79.4 Long term (current) use of insulin; Z95.0 Presence of cardiac pacemaker; Z79.899 Other long term (current) drug therapy
CPT/HCPCS: 36415; 80053; 85025; 93005; 96361; 96374; 96375; 99284; J2060; J2405; J7040; 99283

== ENCOUNTER 2019-04-06 22:06 | Observation (INO) | payer MEDICARE, OTHER ==
[2019-04-06] MEDS ORDERED: Sodium Chloride 0.9% 1,000 ML IV ONE (22:19)
--- NOTE | 2019-04-06 22:29 | EDM.PDOC ---
ED HPI GENERAL MEDICAL PROBLEM - General Chief Complaint: General Stated Complaint: CAME IN THROUGH AMBULANCE Time Seen by Provider: 04/06/19 22:25 - History of Present Illness INITIAL COMMENTS - FREE TEXT/NARRATIVE: HISTORY AND PHYSICAL: History of present illness: Patient's 54-year-old white male presents status post near syncopal episode tonight in which he fell injuring his right knee and ankle he does admit to using alcohol tonight he does have history of diabetes he denies chest pain palpitations or other concern Review of systems: As per history of present illness and below otherwise all systems reviewed and negative. Past medical history: As per history of present illness and as reviewed below otherwise noncontributory. Surgical history: As per history of present illness and as reviewed below otherwise noncontributory. Social history: No reported history of drug or alcohol abuse. Family history: As per history of present illness and as reviewed below otherwise noncontributory. Physical exam: HEENT: Atraumatic, normocephalic, pupils reactive, negative for conjunctival pallor or scleral icterus, mucous membranes moist, throat clear, neck supple, nontender, trachea midline. Lungs: Clear to auscultation, breath sounds equal bilaterally, chest nontender. Heart: S1S2, regular, negative for clicks, rubs, or JVD. Abdomen: Soft, nondistended, nontender. Negative for masses or hepatosplenomegaly. Negative for costovertebral tenderness. Pelvis: Stable nontender. Genitourinary: Deferred. Rectal: Deferred. Extremities: Patient has tenderness palpation of the right lateral malleolus right knee is grossly stable with no point tenderness neurovascular exam at [facility] is unremarkable. Neuro: Awake, alert, oriented. Follows commands moves all extremities limited but grossly nonfocal exam. Diagnostics: CBC CMP troponin PT/INR chest x-ray EKG x-ray right knee/right ankle CT brain Therapeutics: IV O2 monitor short leg posterior mold Impression: #1 near-syncope #2 observation status post fall #3 alcohol abuse #4 right ankle fracture #5 history diabetes #6 medical noncompliance Definitive disposition and diagnosis as appropriate pending reevaluation and review of above. Right Ankle Pain Score (Numeric/FACES): 10 - Related Data Allergies Allergy/AdvReac Type Severity Reaction Status Date / Time No Known Allergies Allergy Verified 04/06/19 22:09 Home Meds: Home Meds FLUoxetine [PROzac] 40 mg PO DAILY 06/08/18 [History] Famotidine 20 mg PO BID 02/15/19 [History] Albuterol [Proventil HFA] 2 puff INH Q4H PRN #1 inhaler 02/16/19 [Rx] Fluticasone/Salmeterol [Advair 250-50] 1 puff INH BID #1 diskus 02/16/19 [Rx] Insulin Detemir [Levemir] 20 unit SQ DAILY #1 box 02/16/19 [Rx] Lisinopril 20 mg PO DAILY #30 tablet 02/16/19 [Rx] glipiZIDE [Glucotrol] 10 mg PO DAILY #30 tablet 02/16/19 [Rx] metFORMIN HCl [Metformin HCl] 1,000 mg PO BID #60 tablet 02/16/19 [Rx] Past Medical History HEENT History: Reports: Impaired Vision Cardiovascular History: Reports: Hypertension, Pacemaker Respiratory History: Reports: None Gastrointestinal History: Reports: None, Other (See Below) Other Gastrointestinal History: polyps removed Genitourinary History: Reports: None Musculoskeletal History: Reports: None Neurological History: Reports: Neuropathy, Diabetic Psychiatric History: Reports: Anxiety, Depression, Panic Attack Endocrine/Metabolic History: Reports: Diabetes, Type II, Obesity/BMI 30+ Immunologic History: Reports: None Dermatologic History: Reports: None - Infectious Disease History Infectious Disease History: Reports: None - Past Surgical History GI Surgical History: Reports: Colonoscopy, Hernia Repair/Other Social & Family History - Family History Family Medical History: Noncontributory - Tobacco Use Smoking Status *Q: Current Every Day Smoker Years of Tobacco use: 35 Packs/Tins Daily: 1 - Caffeine Use Caffeine Use: Reports: Soda - Recreational Drug Use Recreational Drug Use: No - Living Situation & Occupation Living situation: Reports: Alone Occupation: Employed ED ROS GENERAL - Review of Systems Review Of Systems: Comprehensive ROS is negative, except as noted in HPI. ED EXAM, GENERAL - Physical Exam Exam: See Below (Dictation) Course - Vital Signs Last Recorded V/S: Last Vital Signs Temp 35.9 C 04/07/19 07:34 Pulse 80 04/07/19 07:34 Resp 18 04/07/19 07:34 BP 112/68 04/07/19 07:34 Pulse Ox 97 04/07/19 07:34 - Orders/Labs/Meds Orders: Active Orders 24 hr Category Date Time Status EKG Documentation Completion [RC] STAT Care 04/06/19 22:19 Active Saline Lock Insert [OM.PC] Stat Oth 04/06/19 22:19 Ordered Medication Orders Albuterol (Ventolin Hfa) 0 gm INH Q4H PRN PRN Reason: wheezing/shortness of breath Famotidine (Pepcid) 20 mg PO BID [facility] Fluoxetine HCl (Prozac) 40 mg PO DAILY [facility] Magnesium Sulfate 2 gm/ Premix 50 mls @ 25 mls/hr IV ONETIME ONE Stop: 04/07/19 10:06 Last Admin: 04/07/19 08:16 Dose: 25 mls/hr Insulin Aspart (Novolog) 0 unit SUBCUT TIDAC [facility]; Protocol Last Admin: 04/07/19 07:05 Dose: 2 units Insulin Detemir (Levemir) 20 unit SUBCUT DAILY [facility] Lorazepam (Ativan) 1 mg PO Q6H PRN PRN Reason: Anxiety Last Admin: 04/07/19 03:25 Dose: 1 mg Non-Formulary Medication (Lisinopril) 20 mg PO DAILY [facility] Fluticasone/Salmeterol (Advair Diskus 250-50) 1 puff INH BID [facility] Tramadol HCl (Ultram) 50 mg PO Q6H PRN PRN Reason: Pain Last Admin: 04/07/19 07:02 Dose: 50 mg Admin: 04/07/19 01:42 Dose: 50 mg Labs: Laboratory Tests 04/06/19 04/06/19 04/06/19 Range/Units 22:35 22:35 22:35 WBC 11.13 H (4.0-11.0) K/uL RBC 4.54 (4.50-5.90) M/uL Hgb 14.5 (13.0-17.0) g/dL Hct 40.7 (38.0-50.0) % MCV 89.6 (80.0-98.0) fL MCH 31.9 (27.0-32.0) pg MCHC 35.6 (31.0-37.0) g/dL RDW Std Deviation 39.4 (28.0-62.0) fl RDW Coeff of Blank 12 (11.0-15.0) % Plt Count 145 L (150-400) K/uL MPV 9.30 (7.40-12.00) fL Neut % (Auto) 60.3 (48.0-80.0) % Lymph % (Auto) 32.3 (16.0-40.0) % [place] % (Auto) 6.8 (0.0-15.0) % Eos % (Auto) 0.4 (0.0-7.0) % Baso % (Auto) 0.2 (0.0-1.5) % Neut # (Auto) 6.7 H (1.4-5.7) K/uL Lymph # (Auto) 3.6 H (0.6-2.4) K/uL [place] # (Auto) 0.8 (0.0-0.8) K/uL Eos # (Auto) 0.1 (0.0-0.7) K/uL Baso # (Auto) 0.0 (0.0-0.1) K/uL Nucleated RBC % 0.0 /100WBC Nucleated RBCs # 0 K/uL INR 1.12 VBG pH 7.39 (7.31-7.41) VBG pCO2 34 L (35-45) mmHG VBG pO2 20 L (30-40) mmHG VBG HCO3 21 L (22-30) mEq/L VBG Total CO2 19 L (41-51) mmol/L VBG Base Excess -3.3 L (-3.0-3.0) Sodium (136-148) mmol/L Potassium (3.5-5.1) mmol/L Chloride (98-107) mmol/L Carbon Dioxide (21.0-32.0) mmol/L BUN (7.0-18.0) mg/dL Creatinine (0.8-1.3) mg/dL Est Cr Clr Drug Dosing mL/min Estimated GFR (MDRD) ml/min Glucose (74-106) mg/dL Calcium (8.5-10.1) mg/dL Total Bilirubin (0.2-1.0) mg/dL AST (15-37) IU/L ALT (14-63) IU/L Alkaline Phosphatase (46-116) U/L Troponin I (0.000-0.056) ng/mL Total Protein (6.4-8.2) g/dL Albumin (3.4-5.0) g/dL Globulin (2.6-4.0) g/dL Albumin/Globulin Ratio (0.9-1.6) Ethyl Alcohol mg/dL 04/06/19 Range/Units 22:35 WBC (4.0-11.0) K/uL RBC (4.50-5.90) M/uL Hgb (13.0-17.0) g/dL Hct (38.0-50.0) % MCV (80.0-98.0) fL MCH (27.0-32.0) pg MCHC (31.0-37.0) g/dL RDW Std Deviation (28.0-62.0) fl RDW Coeff of Blank (11.0-15.0) % Plt Count (150-400) K/uL MPV (7.40-12.00) fL Neut % (Auto) (48.0-80.0) % Lymph % (Auto) (16.0-40.0) % [place] % (Auto) (0.0-15.0) % Eos % (Auto) (0.0-7.0) % Baso % (Auto) (0.0-1.5) % Neut # (Auto) (1.4-5.7) K/uL Lymph # (Auto) (0.6-2.4) K/uL [place] # (Auto) (0.0-0.8) K/uL Eos # (Auto) (0.0-0.7) K/uL Baso # (Auto) (0.0-0.1) K/uL Nucleated RBC % /100WBC Nucleated RBCs # K/uL INR VBG pH (7.31-7.41) VBG pCO2 (35-45) mmHG VBG pO2 (30-40) mmHG VBG HCO3 (22-30) mEq/L VBG Total CO2 (41-51) mmol/L VBG Base Excess (-3.0-3.0) Sodium 129 L (136-148) mmol/L Potassium 4.1 (3.5-5.1) mmol/L Chloride 93 L (98-107) mmol/L Carbon Dioxide 20.0 L (21.0-32.0) mmol/L BUN 16 (7.0-18.0) mg/dL Creatinine 1.4 H (0.8-1.3) mg/dL Est Cr Clr Drug Dosing 59.71 mL/min Estimated GFR (MDRD) 53.2 ml/min Glucose 406 H (74-106) mg/dL Calcium 8.2 L (8.5-10.1) mg/dL Total Bilirubin 0.2 (0.2-1.0) mg/dL AST 34 (15-37) IU/L ALT 40 (14-63) IU/L Alkaline Phosphatase 62 (46-116) U/L Troponin I < 0.050 (0.000-0.056) ng/mL Total Protein 6.4 (6.4-8.2) g/dL Albumin 3.2 L (3.4-5.0) g/dL Globulin 3.2 (2.6-4.0) g/dL Albumin/Globulin Ratio 1.0 (0.9-1.6) Ethyl Alcohol 111 mg/dL Meds: Medications Generic Name Dose Route Start Last Admin Trade Name Freq PRN Reason Stop Dose Admin Albuterol 0 gm 04/07/19 09:24 Ventolin Hfa INH Q4H PRN wheezing/shortness of breath Famotidine 20 mg 04/07/19 21:00 Pepcid PO BID [facility] Fluoxetine HCl 40 mg 04/07/19 09:30 Prozac PO DAILY [facility] Magnesium Sulfate 2 gm/ Premix 50 mls @ 25 mls/hr 04/07/19 08:07 04/07/19 08: 16 IV 04/07/19 10:06 25 mls/hr ONETIME ONE Administration Insulin Aspart 0 unit 04/07/19 07:30 04/07/19 07:05 Novolog SUBCUT 2 units TIDAC [facility] Administration Protocol Insulin Detemir 20 unit 04/08/19 09:00 Levemir SUBCUT DAILY [facility] Lorazepam 1 mg 04/07/19 01:25 04/07/19 03:25 Ativan PO 1 mg Q6H PRN Administration Anxiety Non-Formulary Medication 20 mg 04/08/19 09:00 Lisinopril PO DAILY [facility] Fluticasone/Salmeterol 1 puff 04/07/19 21:00 Advair Diskus 250-50 INH BID [facility] Tramadol HCl 50 mg 12/07/19 01:18 04/07/19 07:02 Ultram PO 50 mg Q6H PRN Administration Pain Discontinued Medications Generic Name Dose Route Start Last Admin Trade Name Yamini PRN Reason Stop Dose Admin Sodium Chloride 1,000 mls @ 999 mls/hr 04/06/19 22:19 04/06/19 22:19 Normal Saline IV 04/06/19 23:19 999 mls/hr .Bolus ONE Administration Sodium Chloride 1,000 mls @ 125 mls/hr 04/07/19 01:30 04/07/19 01:47 Normal Saline IV 04/07/19 09:29 125 mls/hr ASDIRECTED [facility]UDIO Administration Ketorolac Tromethamine 30 mg 04/07/19 00:07 04/07/19 00:44 Toradol IVPUSH 04/07/19 00:08 30 mg ONETIME ONE Administration Departure - Departure Time of Disposition: 09:31 Disposition: Refer to Observation Condition: Good Clinical Impression: Near syncope, Ankle fracture, History of diabetes mellitus, type II, Alcohol abuse - Discharge Information - My Orders Last 24 Hours: My Active Orders 04/06/19 22:19 EKG Documentation Completion [RC] STAT Saline Lock Insert [OM.PC] Stat - Assessment/Plan Last 24 Hours: My Active Orders 04/06/19 22:19 EKG Documentation Completion [RC] STAT Saline Lock Insert [OM.PC] Stat
--- NOTE | 2019-04-06 22:54 | CR ---
Indication: Injury and pain. Technique: Right knee 2 views Comparison: None Findings: Bones: Alignment is normal. No fractures or bone lesions. Hardware rotten screw are present in the shaft of the tibia. Joint spaces: No joint effusion. Joint spaces are well maintained. No degenerative changes. Soft tissues: Unremarkable. Impression: No sign of acute injury. Dictated by Lokesh Hanley MD @ Apr 06 2019 10:51PM Signed by Dr. Lokesh Hanley @ Apr 06 2019 10:54PM
--- NOTE | 2019-04-06 22:56 | CR ---
Indication: Injury and pain Technique: Right ankle 3 views Comparison: None Findings/Impression: Bones: Acute oblique nondisplaced fracture is in the distal shaft of the right fibula. No other acute fractures. Chronic appearing irregularity present in the tip of the medial malleolus. Joint spaces: Congruent ankle mortise. Soft tissues: Unremarkable. Dictated by Lokesh Hanley MD @ Apr 06 2019 10:54PM Signed by Dr. Lokesh Hanley @ Apr 06 2019 10:56PM
--- NOTE | 2019-04-06 23:01 | CT ---
INDICATION: Fall with pain TECHNIQUE: CT head without contrast. COMPARISON: None. FINDINGS: CSF spaces: Within normal limits for age. Brain parenchyma and extra-axial spaces: The chiang-white differentiation is normal. No sign of mass, hemorrhage, or midline shift. No extra-axial fluid collection. Skull base and calvarium: Opacifications are present in both maxillary sinuses. The visualized orbits are grossly unremarkable. No skull fractures. IMPRESSION: No sign of acute injury. No intracranial abnormality. There is bilateral maxillary sinus inflammatory disease. Please note that all CT scans at this facility use dose modulation, iterative reconstruction, and/or weight-based dosing when appropriate to reduce radiation dose to as low as reasonably achievable. Dictated by Lokesh Hanley MD @ Apr 06 2019 10:56PM Signed by Dr. Lokesh Hanley @ Apr 06 2019 10:59PM
--- NOTE | 2019-04-06 23:03 | CR ---
INDICATION: Fall with pain TECHNIQUE: Chest 1 views COMPARISON: 02/15/2019 FINDINGS: Cardiovascular and mediastinum: Heart size and vasculature are normal in caliber and appearance. Pacemaker is present. Lungs and pleural spaces: Lungs are clear except for a calcified granuloma in the right lower lobe. No sign of infiltrate or mass. No sign of pleural effusion. No pneumothorax. Bones and soft tissues: No significant findings. IMPRESSION: No acute findings and no significant changes from the prior exam. Dictated by Lokesh Hanley MD @ Apr 06 2019 10:59PM Signed by Dr. Lokesh Hanley @ Apr 06 2019 11:01PM
[2019-04-06 23:06] LABS: BLOOD UREA NITROGEN,BUN 16 mg/dL (7.0-18.0); CHLORIDE,CL 93 mmol/L (98-107); GLUCOSE RANDOM 406 mg/dL (74-106); POTASSIUM,K 4.1 mmol/L (3.5-5.1); SODIUM,NA 129 mmol/L (136-148)
[2019-04-07] MEDS ORDERED: Ketorolac 30 MG/ML SDV IVPUSH ONE (00:07)
[2019-04-07] MEDS ORDERED: LORazepam 1 MG Tab PO PRN ×2 (01:25→11:46)
[2019-04-07] MEDS ORDERED: Sodium Chloride 0.9% 1,000 ML IV SCH (01:30)
[2019-04-07] MEDS: traMADol 50 MG Tab PO PRN ×2 (01:42→07:02)
[2019-04-07 05:02] LABS: HEMOGLOBIN A1C 10.9 % (4.5-6.2)
[2019-04-07 05:06] LABS: BLOOD UREA NITROGEN,BUN 17 mg/dL (7.0-18.0); CHLORIDE,CL 95 mmol/L (98-107); GLUCOSE RANDOM 287 mg/dL (74-106); SODIUM,NA 131 mmol/L (136-148)
[2019-04-07] MEDS: Insulin Aspart 100 Units/ML 3 ML Pen SUBCUT SCH ×3 (07:05→18:05)
[2019-04-07] MEDS ORDERED: Magnesium Sulfate/Water 2 GM in Premix Bag 1 BAG IV ONE (08:07)
[2019-04-07] MEDS ORDERED: Albuterol 8 GM Inhaler INH PRN (09:24)
[2019-04-07] MEDS: FLUoxetine 20 MG Cap PO SCH (09:52)
[2019-04-07] MEDS: Fluticasone/Salmeterol 250-50 MCG Inhalation Powder 14/Diskus INH SCH ×2 (11:13→21:13)
[2019-04-07] MEDS ORDERED: Acetaminophen/HYDROcodone 325-5 MG Tab PO PRN (11:37)
[2019-04-07] MEDS: HYDROmorphone 2 MG Tab PO PRN ×2 (12:28→18:26)
[2019-04-07] MEDS: Insulin Detemir 100 Units/ML 3 ML Pen SUBCUT SCH (12:32)
--- NOTE | 2019-04-07 15:57 | PCM.HP.2 ---
<Zac Saucedo M - Last Filed: 04/07/19 16:11> H&P History of Present Illness - General Date of Service: 04/07/19 Admit Problem/Dx: Admission Diagnosis/Problem Admission Diagnosis/Problem Near syncope Source of Information: Patient History Limitations: Reports: No Limitations - History of Present Illness Initial Comments - Free Text/Narative: 54-year-old male presented to ER with near syncopal episode s/p fall. He has a PMH of DM type 2, hypertension and implanted pacemaker. Patient reports that he was drank about three shots of whiskey last night and then when he stood up and walked around, "everything started to go black." He then reports falling and hitting his head on a door and also falling on his right leg. He reports that he did not lose consciousness and can recall the event. There was no loss of bowel or bladder incontinence. Patient reports that he drinks every other night and will drink about three shots of whiskey. He denies any previous history of syncope. He had a pacemaker implanted approximately 5 years ago but cannot remember why it was placed. 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 In the ER, right ankle x-ray revealed acute oblique non-displaced distal fibula fracture. CT head negative. CXR negative. Troponin negative. Alcohol level 111. Short leg mold cast applied to right ankle. Right Ankle Pain Score (Numeric/FACES): 10 - Related Data Allergies/Adverse Reactions: Allergies Allergy/AdvReac Type Severity Reaction Status Date / Time No Known Allergies Allergy Verified 04/07/19 09:52 Home Medications: Home Meds FLUoxetine [PROzac] 40 mg PO DAILY 06/08/18 [History] Famotidine 20 mg PO BID 02/15/19 [History] Albuterol [Proventil HFA] 2 puff INH Q4H PRN #1 inhaler 02/16/19 [Rx] Fluticasone/Salmeterol [Advair 250-50] 1 puff INH BID #1 diskus 02/16/19 [Rx] Insulin Detemir [Levemir] 20 unit SQ DAILY #1 box 02/16/19 [Rx] Lisinopril 20 mg PO DAILY #30 tablet 02/16/19 [Rx] metFORMIN HCl [Metformin HCl] 1,000 mg PO BID #60 tablet 02/16/19 [Rx] Folic Acid 1 mg PO BEDTIME tablet 04/08/19 [Rx] HYDROmorphone [Dilaudid] 2 mg PO Q8H PRN #14 tablet 04/08/19 [Rx] Insulin Aspart [NovoLOG] 6 unit SUBCUT WITHMEALSANDBED #1 pen 04/08/19 [Rx] LORazepam [Ativan] 0 mg PO Q6H PRN tablet 04/08/19 [Rx] Thiamine [Vitamin B-1] 100 mg PO BEDTIME tablet 04/08/19 [Rx] atorvaSTATin [Lipitor] 20 mg PO BEDTIME tablet 04/08/19 [Rx] Past Medical History HEENT History: Reports: Impaired Vision Cardiovascular History: Reports: Hypertension, Pacemaker Respiratory History: Reports: None Gastrointestinal History: Reports: None, Other (See Below) Other Gastrointestinal History: polyps removed Genitourinary History: Reports: None Musculoskeletal History: Reports: None Neurological History: Reports: Neuropathy, Diabetic Psychiatric History: Reports: Anxiety, Depression, Panic Attack Endocrine/Metabolic History: Reports: Diabetes, Type II, Obesity/BMI 30+ Immunologic History: Reports: None Dermatologic History: Reports: None - Infectious Disease History Infectious Disease History: Reports: None - Past Surgical History GI Surgical History: Reports: Colonoscopy, Hernia Repair/Other Social & Family History - Family History Family Medical History: Noncontributory - Tobacco Use Smoking Status *Q: Current Every Day Smoker Years of Tobacco use: 35 Packs/Tins Daily: 1 - Caffeine Use Caffeine Use: Reports: Soda - Recreational Drug Use Recreational Drug Use: No - Living Situation & Occupation Living situation: Reports: Alone Occupation: Employed H&P Review of Systems - Review of Systems: Review Of Systems: Comprehensive ROS is negative, except as noted in HPI. Exam - Exam Exam: See Below - Vital Signs Vital Signs: Last Vital Signs Temp 96.8 F 04/07/19 13:59 Pulse 60 04/07/19 13:59 Resp 14 04/07/19 13:59 BP 134/61 04/07/19 13:59 Pulse Ox 97 04/07/19 13:59 Orthostatic Blood Pressure [ 130/79 Sitting] Orthostatic Blood Pressure [ 105/69 Supine] Weight: 114.986 kg - Exam General: Alert, Oriented, Moderate Distress HEENT: EOMI, Hearing Intact Neck: Supple, Trachea Midline Lungs: Clear to Auscultation, Normal Respiratory Effort Cardiovascular: Regular Rate, Regular Rhythm GI/Abdominal Exam: Normal Bowel Sounds, Soft, Non-Tender, No Distention Extremities: Other (mold cast on RLE.) Skin: Warm, Dry, Intact - Patient Data Lab Results Last 24 hrs: Laboratory Results - last 24 hr 04/06/19 04/06/19 04/06/19 Range/Units 22:35 22:35 22:35 WBC 11.13 H (4.0-11.0) K/uL RBC 4.54 (4.50-5.90) M/uL Hgb 14.5 (13.0-17.0) g/dL Hct 40.7 (38.0-50.0) % MCV 89.6 (80.0-98.0) fL MCH 31.9 (27.0-32.0) pg MCHC 35.6 (31.0-37.0) g/dL RDW Std Deviation 39.4 (28.0-62.0) fl RDW Coeff of Blank 12 (11.0-15.0) % Plt Count 145 L (150-400) K/uL MPV 9.30 (7.40-12.00) fL Neut % (Auto) 60.3 (48.0-80.0) % Lymph % (Auto) 32.3 (16.0-40.0) % Sampson % (Auto) 6.8 (0.0-15.0) % Eos % (Auto) 0.4 (0.0-7.0) % Baso % (Auto) 0.2 (0.0-1.5) % Neut # (Auto) 6.7 H (1.4-5.7) K/uL Lymph # (Auto) 3.6 H (0.6-2.4) K/uL Sampson # (Auto) 0.8 (0.0-0.8) K/uL Eos # (Auto) 0.1 (0.0-0.7) K/uL Baso # (Auto) 0.0 (0.0-0.1) K/uL Nucleated RBC % 0.0 /100WBC Nucleated RBCs # 0 K/uL INR 1.12 VBG pH 7.39 (7.31-7.41) VBG pCO2 34 L (35-45) mmHG VBG pO2 20 L (30-40) mmHG VBG HCO3 21 L (22-30) mEq/L VBG Total CO2 19 L (41-51) mmol/L VBG Base Excess -3.3 L (-3.0-3.0) Sodium (136-148) mmol/L Potassium (3.5-5.1) mmol/L Chloride (98-107) mmol/L Carbon Dioxide (21.0-32.0) mmol/L BUN (7.0-18.0) mg/dL Creatinine (0.8-1.3) mg/dL Est Cr Clr Drug Dosing mL/min Estimated GFR (MDRD) ml/min Glucose (74-106) mg/dL POC Glucose (60-110) mg/dL Hemoglobin A1c (4.5-6.2) % Calcium (8.5-10.1) mg/dL Phosphorus (2.6-4.7) mg/dL Magnesium (1.8-2.4) mg/dL Total Bilirubin (0.2-1.0) mg/dL AST (15-37) IU/L ALT (14-63) IU/L Alkaline Phosphatase (46-116) U/L Troponin I (0.000-0.056) ng/mL Total Protein (6.4-8.2) g/dL Albumin (3.4-5.0) g/dL Globulin (2.6-4.0) g/dL Albumin/Globulin Ratio (0.9-1.6) Triglycerides (0-200) mg/dL Cholesterol (50-200) mg/dL LDL Cholesterol, Calc (60-180) mg/dL VLDL Cholesterol (5-55) mg/dL HDL Cholesterol (40-60) mg/dL Cholesterol/HDL Ratio (3.3-6.0) Urine Color Urine Appearance Urine pH (5.0-8.0) Ur Specific [place] (1.001-1.035) Urine Protein (NEGATIVE) mg/dL Urine Glucose (UA) (NEGATIVE) mg/dL Urine Ketones (NEGATIVE) mg/dL Urine Occult Blood (NEGATIVE) Urine Nitrite (NEGATIVE) Urine Bilirubin (NEGATIVE) Urine Urobilinogen (<2.0) EU/dL Ur Leukocyte Esterase (NEGATIVE) Ethyl Alcohol mg/dL 04/06/19 04/07/19 04/07/19 Range/Units 22:35 00:54 01:38 WBC (4.0-11.0) K/uL RBC (4.50-5.90) M/uL Hgb (13.0-17.0) g/dL Hct (38.0-50.0) % MCV (80.0-98.0) fL MCH (27.0-32.0) pg MCHC (31.0-37.0) g/dL RDW Std Deviation (28.0-62.0) fl RDW Coeff of Blank (11.0-15.0) % Plt Count (150-400) K/uL MPV (7.40-12.00) fL Neut % (Auto) (48.0-80.0) % Lymph % (Auto) (16.0-40.0) % Sampson % (Auto) (0.0-15.0) % Eos % (Auto) (0.0-7.0) % Baso % (Auto) (0.0-1.5) % Neut # (Auto) (1.4-5.7) K/uL Lymph # (Auto) (0.6-2.4) K/uL Sampson # (Auto) (0.0-0.8) K/uL Eos # (Auto) (0.0-0.7) K/uL Baso # (Auto) (0.0-0.1) K/uL Nucleated RBC % /100WBC Nucleated RBCs # K/uL INR VBG pH (7.31-7.41) VBG pCO2 (35-45) mmHG VBG pO2 (30-40) mmHG VBG HCO3 (22-30) mEq/L VBG Total CO2 (41-51) mmol/L VBG Base Excess (-3.0-3.0) Sodium 129 L (136-148) mmol/L Potassium 4.1 (3.5-5.1) mmol/L Chloride 93 L (98-107) mmol/L Carbon Dioxide 20.0 L (21.0-32.0) mmol/L BUN 16 (7.0-18.0) mg/dL Creatinine 1.4 H (0.8-1.3) mg/dL Est Cr Clr Drug Dosing 59.71 mL/min Estimated GFR (MDRD) 53.2 ml/min Glucose 406 H (74-106) mg/dL POC Glucose (60-110) mg/dL Hemoglobin A1c (4.5-6.2) % Calcium 8.2 L (8.5-10.1) mg/dL Phosphorus (2.6-4.7) mg/dL Magnesium (1.8-2.4) mg/dL Total Bilirubin 0.2 (0.2-1.0) mg/dL AST 34 (15-37) IU/L ALT 40 (14-63) IU/L Alkaline Phosphatase 62 (46-116) U/L Troponin I < 0.050 < 0.050 (0.000-0.056) ng/mL Total Protein 6.4 (6.4-8.2) g/dL Albumin 3.2 L (3.4-5.0) g/dL Globulin 3.2 (2.6-4.0) g/dL Albumin/Globulin Ratio 1.0 (0.9-1.6) Triglycerides (0-200) mg/dL Cholesterol (50-200) mg/dL LDL Cholesterol, Calc (60-180) mg/dL VLDL Cholesterol (5-55) mg/dL HDL Cholesterol (40-60) mg/dL Cholesterol/HDL Ratio (3.3-6.0) Urine Color YELLOW Urine Appearance CLEAR Urine pH 5.5 (5.0-8.0) Ur Specific [place] <= 1.005 (1.001-1.035) Urine Protein NEGATIVE (NEGATIVE) mg/dL Urine Glucose (UA) >=1000 (NEGATIVE) mg/dL Urine Ketones NEGATIVE (NEGATIVE) mg/dL Urine Occult Blood NEGATIVE (NEGATIVE) Urine Nitrite NEGATIVE (NEGATIVE) Urine Bilirubin NEGATIVE (NEGATIVE) Urine Urobilinogen 0.2 (<2.0) EU/dL Ur Leukocyte Esterase NEGATIVE (NEGATIVE) Ethyl Alcohol 111 mg/dL 04/07/19 04/07/19 04/07/19 Range/Units 04:40 04:40 04:40 WBC 10.70 (4.0-11.0) K/uL RBC 4.33 L (4.50-5.90) M/uL Hgb 13.8 (13.0-17.0) g/dL Hct 38.2 (38.0-50.0) % MCV 88.2 (80.0-98.0) fL MCH 31.9 (27.0-32.0) pg MCHC 36.1 (31.0-37.0) g/dL RDW Std Deviation 39.6 (28.0-62.0) fl RDW Coeff of Blank 12 (11.0-15.0) % Plt Count 118 L (150-400) K/uL MPV 9.20 (7.40-12.00) fL Neut % (Auto) 53.7 (48.0-80.0) % Lymph % (Auto) 37.9 (16.0-40.0) % Sampson % (Auto) 7.3 (0.0-15.0) % Eos % (Auto) 0.7 (0.0-7.0) % Baso % (Auto) 0.4 (0.0-1.5) % Neut # (Auto) 5.8 H (1.4-5.7) K/uL Lymph # (Auto) 4.1 H (0.6-2.4) K/uL Sampson # (Auto) 0.8 (0.0-0.8) K/uL Eos # (Auto) 0.1 (0.0-0.7) K/uL Baso # (Auto) 0.0 (0.0-0.1) K/uL Nucleated RBC % 0.0 /100WBC Nucleated RBCs # 0 K/uL INR VBG pH (7.31-7.41) VBG pCO2 (35-45) mmHG VBG pO2 (30-40) mmHG VBG HCO3 (22-30) mEq/L VBG Total CO2 (41-51) mmol/L VBG Base Excess (-3.0-3.0) Sodium 131 L (136-148) mmol/L Potassium 4.0 (3.5-5.1) mmol/L Chloride 95 L (98-107) mmol/L Carbon Dioxide 26.0 (21.0-32.0) mmol/L BUN 17 (7.0-18.0) mg/dL Creatinine 1.2 (0.8-1.3) mg/dL Est Cr Clr Drug Dosing 79.04 mL/min Estimated GFR (MDRD) > 60.0 ml/min Glucose 287 H (74-106) mg/dL POC Glucose (60-110) mg/dL Hemoglobin A1c (4.5-6.2) % Calcium 8.1 L (8.5-10.1) mg/dL Phosphorus 3.8 (2.6-4.7) mg/dL Magnesium 1.3 L (1.8-2.4) mg/dL Total Bilirubin (0.2-1.0) mg/dL AST (15-37) IU/L ALT (14-63) IU/L Alkaline Phosphatase (46-116) U/L Troponin I < 0.050 (0.000-0.056) ng/mL Total Protein (6.4-8.2) g/dL Albumin (3.4-5.0) g/dL Globulin (2.6-4.0) g/dL Albumin/Globulin Ratio (0.9-1.6) Triglycerides 268 H (0-200) mg/dL Cholesterol 144 (50-200) mg/dL LDL Cholesterol, Calc 59 L (60-180) mg/dL VLDL Cholesterol 53 (5-55) mg/dL HDL Cholesterol 31 L (40-60) mg/dL Cholesterol/HDL Ratio 4.6 (3.3-6.0) Urine Color Urine Appearance Urine pH (5.0-8.0) Ur Specific [place] (1.001-1.035) Urine Protein (NEGATIVE) mg/dL Urine Glucose (UA) (NEGATIVE) mg/dL Urine Ketones (NEGATIVE) mg/dL Urine Occult Blood (NEGATIVE) Urine Nitrite (NEGATIVE) Urine Bilirubin (NEGATIVE) Urine Urobilinogen (<2.0) EU/dL Ur Leukocyte Esterase (NEGATIVE) Ethyl Alcohol mg/dL 04/07/19 04/07/19 04/07/19 Range/Units 04:40 06:55 11:55 WBC (4.0-11.0) K/uL RBC (4.50-5.90) M/uL Hgb (13.0-17.0) g/dL Hct (38.0-50.0) % MCV (80.0-98.0) fL MCH (27.0-32.0) pg MCHC (31.0-37.0) g/dL RDW Std Deviation (28.0-62.0) fl RDW Coeff of Blank (11.0-15.0) % Plt Count (150-400) K/uL MPV (7.40-12.00) fL Neut % (Auto) (48.0-80.0) % Lymph % (Auto) (16.0-40.0) % Sampson % (Auto) (0.0-15.0) % Eos % (Auto) (0.0-7.0) % Baso % (Auto) (0.0-1.5) % Neut # (Auto) (1.4-5.7) K/uL Lymph # (Auto) (0.6-2.4) K/uL Sampson # (Auto) (0.0-0.8) K/uL Eos # (Auto) (0.0-0.7) K/uL Baso # (Auto) (0.0-0.1) K/uL Nucleated RBC % /100WBC Nucleated RBCs # K/uL INR VBG pH (7.31-7.41) VBG pCO2 (35-45) mmHG VBG pO2 (30-40) mmHG VBG HCO3 (22-30) mEq/L VBG Total CO2 (41-51) mmol/L VBG Base Excess (-3.0-3.0) Sodium (136-148) mmol/L Potassium (3.5-5.1) mmol/L Chloride (98-107) mmol/L Carbon Dioxide (21.0-32.0) mmol/L BUN (7.0-18.0) mg/dL Creatinine (0.8-1.3) mg/dL Est Cr Clr Drug Dosing mL/min Estimated GFR (MDRD) ml/min Glucose (74-106) mg/dL POC Glucose 224 H 226 H (60-110) mg/dL Hemoglobin A1c 10.9 H (4.5-6.2) % Calcium (8.5-10.1) mg/dL Phosphorus (2.6-4.7) mg/dL Magnesium (1.8-2.4) mg/dL Total Bilirubin (0.2-1.0) mg/dL AST (15-37) IU/L ALT (14-63) IU/L Alkaline Phosphatase (46-116) U/L Troponin I (0.000-0.056) ng/mL Total Protein (6.4-8.2) g/dL Albumin (3.4-5.0) g/dL Globulin (2.6-4.0) g/dL Albumin/Globulin Ratio (0.9-1.6) Triglycerides (0-200) mg/dL Cholesterol (50-200) mg/dL LDL Cholesterol, Calc (60-180) mg/dL VLDL Cholesterol (5-55) mg/dL HDL Cholesterol (40-60) mg/dL Cholesterol/HDL Ratio (3.3-6.0) Urine Color Urine Appearance Urine pH (5.0-8.0) Ur Specific [place] (1.001-1.035) Urine Protein (NEGATIVE) mg/dL Urine Glucose (UA) (NEGATIVE) mg/dL Urine Ketones (NEGATIVE) mg/dL Urine Occult Blood (NEGATIVE) Urine Nitrite (NEGATIVE) Urine Bilirubin (NEGATIVE) Urine Urobilinogen (<2.0) EU/dL Ur Leukocyte Esterase (NEGATIVE) Ethyl Alcohol mg/dL Result Diagrams: 04/07/19 04:40 04/07/19 04:40 Problem List Initiated/Reviewed/Updated: Yes Orders Last 24hrs: Active Orders 24 hr Category Date Time Status Patient Status [ADT] Stat ADT 04/06/19 22:59 Active Antiembolic Devices [RC] PER UNIT ROUTINE Care 04/07/19 09:27 Active Blood Glucose Check, Bedside [RC] TIDAC Care 04/07/19 06:30 Active CIWAA Assessment [RC] Q4H Care 04/07/19 01:24 Active Orthostatic Vital Signs [RC] ASDIRECTED Care 04/07/19 01:22 Active Telemetry Monitoring [Cardiac Monitoring] [RC] Q8H Care 04/07/19 00:38 Active Consult to Physical Therapy [PT Evaluation and Cons 04/07/19 11:36 Active Treatment] [CONS] Routine Cardiac [Heart Healthy Diet] [DIET] Diet 04/07/19 Breakfast Active Albuterol [Ventolin HFA] Med 04/07/19 09:24 Active 0 gm INH Q4H PRN FLUoxetine [PROzac] Med 04/07/19 09:30 Active 40 mg PO DAILY Famotidine [Pepcid] Med 04/07/19 21:00 Active 20 mg PO BID Fluticasone/Salmeterol [Advair Diskus 250-50] Med 04/07/19 11:15 Active 1 puff INH BID Folic Acid Med 04/07/19 21:00 Active 1 mg PO BEDTIME HYDROmorphone [Dilaudid] Med 04/07/19 11:45 Active 2 mg PO Q6H PRN Insulin Aspart [NovoLOG] Med 04/07/19 07:30 Active See Protocol SUBCUT TIDAC Insulin Detemir [Levemir] Med 04/07/19 11:32 Active 20 unit SUBCUT DAILY LORazepam [Ativan] Med 04/07/19 11:46 Active See Protocol PO Q6H PRN Lisinopril [Prinivil] Med 04/08/19 09:00 Active 20 mg PO DAILY Thiamine [Vitamin B-1] Med 04/07/19 21:00 Active 100 mg PO BEDTIME atorvaSTATin [Lipitor] Med 04/07/19 21:00 Active 20 mg PO BEDTIME SCD [Sequential Compression Device] [OM.PC] Routine Oth 04/07/19 09:27 Ordered Saline Lock Insert [OM.PC] Stat Oth 04/06/19 22:19 Ordered Code Status [Resuscitation Status] Routine Resus Stat 04/07/19 09:25 Ordered Medication Orders Albuterol (Ventolin Hfa) 0 gm INH Q4H PRN PRN Reason: wheezing/shortness of breath Atorvastatin Calcium (Lipitor) 20 mg PO BEDTIME CLAUDIO Famotidine (Pepcid) 20 mg PO BID CLAUDIO Fluoxetine HCl (Prozac) 40 mg PO DAILY CLAUDIO Last Admin: 04/07/19 09:52 Dose: 40 mg Folic Acid (Folic Acid) 1 mg PO BEDTIME CLAUDIO Hydromorphone HCl (Dilaudid) 2 mg PO Q6H PRN PRN Reason: Pain Last Admin: 04/07/19 12:28 Dose: 2 mg Insulin Aspart (Novolog) 0 unit SUBCUT TIDAC CLAUDIO; Protocol Last Admin: 04/07/19 12:32 Dose: 2 units Admin: 04/07/19 07:05 Dose: 2 units Insulin Detemir (Levemir) 20 unit SUBCUT DAILY CLAUDIO Last Admin: 04/07/19 12:32 Dose: 20 units Lisinopril (Prinivil) 20 mg PO DAILY CLAUDIO Lorazepam (Ativan) 0 mg PO Q6H PRN; Protocol PRN Reason: Anxiety Fluticasone/Salmeterol (Advair Diskus 250-50) 1 puff INH BID [facility] Last Admin: 04/07/19 11:13 Dose: 1 canister Thiamine HCl (Vitamin B-1) 100 mg PO BEDTIME [facility] Assessment/Plan Comment:: Assessment and Plan: 1. Near syncopal episode resulting s/p fall: Patient on telemetry. CT head negative. Patient received IV fluid bolus. Will continue to monitor. Telemetry reported no events overnight. Will require outpatient follow-up with cardiology. 2. Alcohol intoxication: Etoh level on admission 111. CIWA assessment protocol. Ativan on board per CIWAA protocol. Will start thiamine and folic acid. 3. Right non-displaced distal fibula fracture: Cast placed in the ER. Pain control with dilaudid. Patient will require outpatient follow-up in orthopedic surgery clinic. 4. Hypomagnesemia: Will replete with 2 gm IV magnesium sulfate. 5. Diabetes mellitus type 2: Continue home dose of levemir, ADA diet and sliding scale insulin. <Donna Barajas - Last Filed: 04/10/19 11:41> H&P History of Present Illness - General Admit Problem/Dx: Admission Diagnosis/Problem Admission Diagnosis/Problem Near syncope Exam - Vital Signs Vital Signs: Last Vital Signs Temp 36.1 C 04/08/19 12:32 Pulse 86 04/08/19 12:32 Resp 20 04/08/19 12:32 BP 126/80 04/08/19 12:32 Pulse Ox 95 04/08/19 12:32 Orthostatic Blood Pressure [ 130/79 Sitting] Orthostatic Blood Pressure [ 105/69 Supine] - Patient Data Result Diagrams: 04/08/19 06:13 04/08/19 06:13 - Problem List (1) Alcohol abuse SNOMED Code(s): 50166043 ICD Code: F10.10 - ALCOHOL ABUSE, UNCOMPLICATED Status: Acute (2) Ankle fracture SNOMED Code(s): 63032120 ICD Code: S82.899A - OTH FRACTURE OF UNSP LOWER LEG, INIT FOR CLOS FX Status: Acute (3) Near syncope SNOMED Code(s): 960290838 ICD Code: R55 - SYNCOPE AND COLLAPSE Status: Acute (4) History of diabetes mellitus, type II SNOMED Code(s): 953255284 ICD Code: Z86.39 - PERSONAL HISTORY OF ENDO, NUTRITIONAL AND METABOLIC DISEASE Status: Chronic Assessment/Plan Comment:: I performed a history and physical exam of the patient and discussed management with resident. I have reviewed the residents note and agree with documented findings and plan unless otherwise specified in my note.
[2019-04-07] MEDS ORDERED: Piperacillin/Tazobactam 4.5 GM in Sodium Chloride 0.9% 100 ML IV SCH (16:15)
[2019-04-07] MEDS ORDERED: atorvaSTATin 20 MG Tab PO SCH (21:00)
[2019-04-07] MEDS ORDERED: Folic Acid 1 MG Tab PO SCH (21:00)
[2019-04-07] MEDS ORDERED: Thiamine 100 MG Tab PO SCH (21:00)
[2019-04-07] MEDS: Famotidine 20 MG Tab PO SCH (22:47)
[2019-04-08] MEDS: HYDROmorphone 2 MG Tab PO PRN ×3 (00:18→12:27)
[2019-04-08 06:48] LABS: BLOOD UREA NITROGEN,BUN 13 mg/dL (7.0-18.0); CHLORIDE,CL 95 mmol/L (98-107); GLUCOSE RANDOM 272 mg/dL (74-106); POTASSIUM,K 4.4 mmol/L (3.5-5.1); SODIUM,NA 132 mmol/L (136-148)
[2019-04-08] MEDS: Insulin Aspart 100 Units/ML 3 ML Pen SUBCUT SCH ×2 (07:40→12:05)
[2019-04-08] MEDS: FLUoxetine 20 MG Cap PO SCH (08:08)
[2019-04-08] MEDS: Famotidine 20 MG Tab PO SCH (08:09)
[2019-04-08] MEDS: Insulin Detemir 100 Units/ML 3 ML Pen SUBCUT SCH (08:09)
[2019-04-08] MEDS: Fluticasone/Salmeterol 250-50 MCG Inhalation Powder 14/Diskus INH SCH (08:54)
[2019-04-08] MEDS ORDERED: Insulin Detemir 100 Units/ML 3 ML Pen SUBCUT SCH (09:00)
[2019-04-08] MEDS ORDERED: Lisinopril 10 MG Tab PO SCH (09:00)
--- NOTE | 2019-04-08 12:52 | PCM.DCSUM1 ---
Discharge Summary - Hospital Course Free Text/Narrative:: Seen and examined at bedside. Pain is better but still needs round the clock pain meds HPI Initial Comments: I have seen and evaluated the patient and agree with the residents note unless specified in my note Diagnosis: Stroke: No - Discharge Data Discharge Date: 04/08/19 Discharge Disposition: Home, Self-Care 01 Condition: Stable - Referral to Home Health Primary Care Physician: PCP Unknown - Discharge Diagnosis/Problem(s) (1) Alcohol abuse SNOMED Code(s): 24486712 ICD Code: F10.10 - ALCOHOL ABUSE, UNCOMPLICATED Status: Acute (2) Ankle fracture SNOMED Code(s): 36037565 ICD Code: S82.899A - OTH FRACTURE OF UNSP LOWER LEG, INIT FOR CLOS FX Status: Acute (3) Near syncope SNOMED Code(s): 907092191 ICD Code: R55 - SYNCOPE AND COLLAPSE Status: Acute (4) History of diabetes mellitus, type II SNOMED Code(s): 398870181 ICD Code: Z86.39 - PERSONAL HISTORY OF ENDO, NUTRITIONAL AND METABOLIC DISEASE Status: Chronic - Patient Summary/Data Consults: Consultations 04/07/19 11:36 Consult to Physical Therapy [PT Evaluation and Treatment] [CONS] Routine - Patient Instructions Diet: Regular Diet as Tolerated Activity: As Tolerated, No Strenuous Activities, Partial Weight Bearing, Rest and Relax Today Driving: Do Not Drive Showering/Bathing: May Shower Notify Provider of: Fever, Increased Pain, Swelling and Redness, Drainage, Nausea and/or Vomiting - Discharge Plan *PRESCRIPTION DRUG MONITORING PROGRAM REVIEWED*: Not Applicable *COPY OF PRESCRIPTION DRUG MONITORING REPORT IN PATIENT TORRI: Not Applicable Prescriptions/Med Rec: HYDROmorphone [Dilaudid] 2 mg PO Q8H PRN #14 tablet PRN Reason: Pain Insulin Aspart [NovoLOG] 6 unit SUBCUT WITHMEALSANDBED #1 pen Home Medications: Home Meds FLUoxetine [PROzac] 40 mg PO DAILY 06/08/18 [History] Famotidine 20 mg PO BID 02/15/19 [History] Albuterol [Proventil HFA] 2 puff INH Q4H PRN #1 inhaler 02/16/19 [Rx] Fluticasone/Salmeterol [Advair 250-50] 1 puff INH BID #1 diskus 02/16/19 [Rx] Insulin Detemir [Levemir] 20 unit SQ DAILY #1 box 02/16/19 [Rx] Lisinopril 20 mg PO DAILY #30 tablet 02/16/19 [Rx] metFORMIN HCl [Metformin HCl] 1,000 mg PO BID #60 tablet 02/16/19 [Rx] Folic Acid 1 mg PO BEDTIME tablet 04/08/19 [Rx] HYDROmorphone [Dilaudid] 2 mg PO Q8H PRN #14 tablet 04/08/19 [Rx] Insulin Aspart [NovoLOG] 6 unit SUBCUT WITHMEALSANDBED #1 pen 04/08/19 [Rx] LORazepam [Ativan] 0 mg PO Q6H PRN tablet 04/08/19 [Rx] Thiamine [Vitamin B-1] 100 mg PO BEDTIME tablet 04/08/19 [Rx] atorvaSTATin [Lipitor] 20 mg PO BEDTIME tablet 04/08/19 [Rx] Patient Handouts: Alcohol Use Disorder, Insulin Aspart injection, Near-Syncope , [id number], Hydromorphone tablets Referrals: Ramon Adames MD [Physician] - - Discharge Summary/Plan Comment DC Time >30 min.: No - Patient Data Vitals - Most Recent: Last Vital Signs Temp 36.1 C 04/08/19 12:32 Pulse 86 04/08/19 12:32 Resp 20 04/08/19 12:32 BP 126/80 04/08/19 12:32 Pulse Ox 95 04/08/19 12:32 Orthostatic Blood Pressure [ 130/79 Sitting] Orthostatic Blood Pressure [ 105/69 Supine] Weight - Most Recent: 114.986 kg I&O - Last 24 hours: Intake & Output 04/07/19 04/08/19 04/08/19 22:59 06:59 14:59 Intake Total 1950 2436 Output Total 1056 1925 Balance 900 511 Lab Results - Last 24 hrs: Laboratory Results - last 24 hr 04/07/19 04/08/19 04/08/19 Range/Units 16:55 06:13 06:13 WBC 5.75 (4.0-11.0) K/uL RBC 4.13 L (4.50-5.90) M/uL Hgb 13.1 (13.0-17.0) g/dL Hct 36.9 L (38.0-50.0) % MCV 89.3 (80.0-98.0) fL MCH 31.7 (27.0-32.0) pg MCHC 35.5 (31.0-37.0) g/dL RDW Std Deviation 39.6 (28.0-62.0) fl RDW Coeff of Blank 12 (11.0-15.0) % Plt Count 87 L (150-400) K/uL MPV 9.50 (7.40-12.00) fL Neut % (Auto) 58.0 (48.0-80.0) % Lymph % (Auto) 32.5 (16.0-40.0) % [place] % (Auto) 8.7 (0.0-15.0) % Eos % (Auto) 0.5 (0.0-7.0) % Baso % (Auto) 0.3 (0.0-1.5) % Neut # (Auto) 3.3 (1.4-5.7) K/uL Lymph # (Auto) 1.9 (0.6-2.4) K/uL [place] # (Auto) 0.5 (0.0-0.8) K/uL Eos # (Auto) 0.0 (0.0-0.7) K/uL Baso # (Auto) 0.0 (0.0-0.1) K/uL Nucleated RBC % 0.0 /100WBC Nucleated RBCs # 0 K/uL Sodium 132 L (136-148) mmol/L Potassium 4.4 (3.5-5.1) mmol/L Chloride 95 L (98-107) mmol/L Carbon Dioxide 29.0 (21.0-32.0) mmol/L BUN 13 (7.0-18.0) mg/dL Creatinine 1.0 (0.8-1.3) mg/dL Est Cr Clr Drug Dosing 94.84 mL/min Estimated GFR (MDRD) > 60.0 ml/min Glucose 272 H (74-106) mg/dL POC Glucose 256 H (60-110) mg/dL Calcium 8.0 L (8.5-10.1) mg/dL Total Bilirubin 0.6 (0.2-1.0) mg/dL AST 20 (15-37) IU/L ALT 34 (14-63) IU/L Alkaline Phosphatase 72 (46-116) U/L Total Protein 6.1 L (6.4-8.2) g/dL Albumin 3.2 L (3.4-5.0) g/dL Globulin 2.9 (2.6-4.0) g/dL Albumin/Globulin Ratio 1.1 (0.9-1.6) 04/08/19 04/08/19 Range/Units 06:31 11:53 WBC (4.0-11.0) K/uL RBC (4.50-5.90) M/uL Hgb (13.0-17.0) g/dL Hct (38.0-50.0) % MCV (80.0-98.0) fL MCH (27.0-32.0) pg MCHC (31.0-37.0) g/dL RDW Std Deviation (28.0-62.0) fl RDW Coeff of Blank (11.0-15.0) % Plt Count (150-400) K/uL MPV (7.40-12.00) fL Neut % (Auto) (48.0-80.0) % Lymph % (Auto) (16.0-40.0) % [place] % (Auto) (0.0-15.0) % Eos % (Auto) (0.0-7.0) % Baso % (Auto) (0.0-1.5) % Neut # (Auto) (1.4-5.7) K/uL Lymph # (Auto) (0.6-2.4) K/uL [place] # (Auto) (0.0-0.8) K/uL Eos # (Auto) (0.0-0.7) K/uL Baso # (Auto) (0.0-0.1) K/uL Nucleated RBC % /100WBC Nucleated RBCs # K/uL Sodium (136-148) mmol/L Potassium (3.5-5.1) mmol/L Chloride (98-107) mmol/L Carbon Dioxide (21.0-32.0) mmol/L BUN (7.0-18.0) mg/dL Creatinine (0.8-1.3) mg/dL Est Cr Clr Drug Dosing mL/min Estimated GFR (MDRD) ml/min Glucose (74-106) mg/dL POC Glucose 242 H 323 H (60-110) mg/dL Calcium (8.5-10.1) mg/dL Total Bilirubin (0.2-1.0) mg/dL AST (15-37) IU/L ALT (14-63) IU/L Alkaline Phosphatase (46-116) U/L Total Protein (6.4-8.2) g/dL Albumin (3.4-5.0) g/dL Globulin (2.6-4.0) g/dL Albumin/Globulin Ratio (0.9-1.6) Med Orders - Current: Current Medications Albuterol (Ventolin Hfa) 0 gm INH Q4H PRN PRN Reason: wheezing/shortness of breath Atorvastatin Calcium (Lipitor) 20 mg PO BEDTIME [facility] Last Admin: 04/07/19 22:47 Dose: 20 mg Famotidine (Pepcid) 20 mg PO BID [facility] Last Admin: 04/08/19 08:09 Dose: 20 mg Fluoxetine HCl (Prozac) 40 mg PO DAILY [facility] Last Admin: 04/08/19 08:08 Dose: 40 mg Folic Acid (Folic Acid) 1 mg PO BEDTIME [facility] Last Admin: 04/07/19 22:48 Dose: 1 mg Hydromorphone HCl (Dilaudid) 2 mg PO Q6H PRN PRN Reason: Pain Last Admin: 04/08/19 12:27 Dose: 2 mg Insulin Aspart (Novolog) 0 unit SUBCUT TIDAC [facility]; Protocol Last Admin: 04/08/19 12:05 Dose: 12 units Insulin Detemir (Levemir) 20 unit SUBCUT DAILY [facility] Last Admin: 04/08/19 08:09 Dose: 20 units Lisinopril (Prinivil) 20 mg PO DAILY [facility] Last Admin: 04/08/19 08:09 Dose: 20 mg Lorazepam (Ativan) 0 mg PO Q6H PRN; Protocol PRN Reason: Anxiety Last Admin: 04/08/19 02:59 Dose: 1 mg Fluticasone/Salmeterol (Advair Diskus 250-50) 1 puff INH BID [facility] Last Admin: 04/08/19 08:54 Dose: 1 canister Thiamine HCl (Vitamin B-1) 100 mg PO BEDTIME [facility] Last Admin: 04/07/19 22:46 Dose: 100 mg Discontinued Medications Hydrocodone Bitart/Acetaminophen ([place] 325-5 Mg) 1 tab PO Q6H PRN PRN Reason: Pain Sodium Chloride (Normal Saline) 1,000 mls @ 999 mls/hr IV .Bolus ONE Stop: 04/06/19 23:19 Last Admin: 04/06/19 22:19 Dose: 999 mls/hr Sodium Chloride (Normal Saline) 1,000 mls @ 125 mls/hr IV ASDIRECTED [facility] Stop: 04/07/19 09:29 Last Admin: 04/07/19 01:47 Dose: 125 mls/hr Magnesium Sulfate 2 gm/ Premix 50 mls @ 25 mls/hr IV ONETIME ONE Stop: 04/07/19 10:06 Last Admin: 04/07/19 08:16 Dose: 25 mls/hr Piperacillin Sod/Tazobactam (Sod 4.5 gm/ Sodium Chloride) 100 mls @ 100 mls/hr IV Q6H [facility] Insulin Detemir (Levemir) 20 unit SUBCUT DAILY [facility] Ketorolac Tromethamine (Toradol) 30 mg IVPUSH ONETIME ONE Stop: 04/07/19 00:08 Last Admin: 04/07/19 00:44 Dose: 30 mg Lorazepam (Ativan) 1 mg PO Q6H PRN PRN Reason: Anxiety Last Admin: 04/07/19 03:25 Dose: 1 mg Tramadol HCl (Ultram) 50 mg PO Q6H PRN PRN Reason: Pain Last Admin: 04/07/19 07:02 Dose: 50 mg Vancomycin HCl (Pharmacy To Dose - Vancomycin) 1 dose .XX ASDIRECTED [facility]
[2019-04-08] MEDS ORDERED: Sodium Chloride 0.9% 1,000 ML IV ONE (14:07)
[2019-04-08] MEDS ORDERED: Insulin Aspart 100 Units/ML 3 ML Pen SUBCUT ONE (14:17)
== END 2019-04-08 15:45 | disposition home or self-care (01) ==
LOC: MW.ED 22:06 → MW.MS 22:59
PROVIDERS: ADMIT Student in an Organized Health Care Education/Training Program; ATTEND Student in an Organized Health Care Education/Training Program
DX: R55 Syncope and collapse (principal); F10.129 Alcohol abuse with intoxication, unspecified; S82.431A Displaced oblique fracture of shaft of right fibula, initial encounter for closed fracture; E11.40 Type 2 diabetes mellitus with diabetic neuropathy, unspecified; F41.9 Anxiety disorder, unspecified; F32.9 Major depressive disorder, single episode, unspecified; E83.42 Hypomagnesemia; F17.210 Nicotine dependence, cigarettes, uncomplicated; E66.9 Obesity, unspecified; Y90.5 Blood alcohol level of 100-119 mg/100 ml; W22.8XXA Striking against or struck by other objects, initial encounter; Z68.34 Body mass index [BMI] 34.0-34.9, adult; Z79.4 Long term (current) use of insulin; Z79.51 Long term (current) use of inhaled steroids; Z79.899 Other long term (current) drug therapy; Z95.0 Presence of cardiac pacemaker
CPT/HCPCS: 36415; 70450; 71045; 73560; 73610; 80048; 80053; 80061; 81003; 82803; 82962; 83036; 83735; 84100; 84484; 85025; 85610; 93005; 94640; 94664; 96361; 96374; 99285; A9270; G0480; J1815; J1885; J3475; J7030

== ENCOUNTER 2019-05-08 08:48 | Emergency (ER) | payer MEDICAID, MEDICARE ==
[2019-05-08 10:06] LABS: BLOOD UREA NITROGEN,BUN 8 mg/dL (7.0-18.0); CARBON DIOXIDE,CO2 25.3 mmol/L (21.0-32.0); CHLORIDE,CL 95 mmol/L (98-107); GLUCOSE RANDOM 349 mg/dL (74-106); POTASSIUM,K 4.2 mmol/L (3.5-5.1); SODIUM,NA 133 mmol/L (136-148)
--- NOTE | 2019-05-08 10:36 | EDM.PDOC ---
ED [facility] GENERAL MEDICAL PROBLEM - General Chief Complaint: Drug or Alcohol Abuse Stated Complaint: SHORTNESS OF BREATH Time Seen by Provider: 05/08/19 09:25 Source of Information: Reports: Patient History Limitations: Reports: No Limitations - History of Present Illness INITIAL COMMENTS - FREE TEXT/NARRATIVE: Patient is a 54-year-old male with a past medical history of alcohol abuse, hypertension, cardiovascular disease presenting with a chief complaint of dizziness, nausea and vomiting since yesterday. Patient states he has In addition to that documented in the HPI above, the additional ROS was obtained : Constitutional: Denies fevers or chills Eyes: Denies vision changes ENMT: Denies sore throat CV: Denies chest pain Resp: Denies SOB GI: Denies vomiting or diarrhea : Denies painful urination MSK: Denies recent trauma Skin: Denies new rashes Neuro: Denies new numbness or tingling or weakness Endocrine: Denies unexpected weight loss Heme: Denies bleeding disorders I have reviewed the triage vital signs Const: Well nourished, well developed, appears stated age Eyes: PERRL, no conjunctival injection HENT: NCAT, Neck supple without meningismus CV: RRR, Warm, well-perfused extremities RESP: CTAB, Unlabored respiratory effort GI: soft, non-tender, non-distended, no masses MSK: No gross deformities appreciated Skin: Warm, dry. No rashes Neuro: Alert, waste transportation technician II-XII grossly intact. Sensation and motor function of extremities grossly intact. Psych: Appropriate mood and affect Assesment and plan Patient is 54-year-old male presenting with dizziness and nausea. Patient symptoms improved after administration of Valium and Zofran in the emergency department. Patient labs are within normal limits and does not exhibit any electrolyte abnormalities or evidence of DKA. Patient's EKG and troponin are within normal limits. Broad differential diagnosis considered including ACS, cardiac arrhythmia, alcohol withdrawal, electrolyte imbalance. However I think the majority of his symptoms are related to alcohol and given that the patient is in mild withdrawal, with a CIWA score of less than 9 he can be treated as an outpatient. - Related Data Allergies Allergy/AdvReac Type Severity Reaction Status Date / Time No Known Allergies Allergy Verified 04/07/19 09:52 Home Meds: Home Meds FLUoxetine [PROzac] 40 mg PO DAILY 06/08/18 [History] Famotidine 20 mg PO BID 02/15/19 [History] Albuterol [Proventil HFA] 2 puff INH Q4H PRN #1 inhaler 02/16/19 [Rx] Fluticasone/Salmeterol [Advair 250-50] 1 puff INH BID #1 diskus 02/16/19 [Rx] Insulin Detemir [Levemir] 20 unit SQ DAILY #1 box 02/16/19 [Rx] lisinopriL [Lisinopril] 20 mg PO DAILY #30 tablet 02/16/19 [Rx] metFORMIN HCl [Metformin HCl] 1,000 mg PO BID #60 tablet 02/16/19 [Rx] Folic Acid 1 mg PO BEDTIME tablet 04/08/19 [Rx] HYDROmorphone [Dilaudid] 2 mg PO Q8H PRN #14 tablet 04/08/19 [Rx] Insulin Aspart [NovoLOG] 6 unit SUBCUT WITHMEALSANDBED #1 pen 04/08/19 [Rx] LORazepam [Ativan] 0 mg PO Q6H PRN tablet 04/08/19 [Rx] Thiamine [Vitamin B-1] 100 mg PO BEDTIME tablet 04/08/19 [Rx] atorvaSTATin [Lipitor] 20 mg PO BEDTIME tablet 04/08/19 [Rx] chlordiazePOXIDE [Librium] 25 mg PO TID #15 cap 05/08/19 [Rx] Past Medical History HEENT History: Reports: Impaired Vision Cardiovascular History: Reports: Hypertension, Pacemaker Respiratory History: Reports: None Gastrointestinal History: Reports: None, Other (See Below) Other Gastrointestinal History: polyps removed Genitourinary History: Reports: None Musculoskeletal History: Reports: Fracture Other Musculoskeletal History: rid in right leg Neurological History: Reports: Neuropathy, Diabetic Psychiatric History: Reports: Anxiety, Depression, Panic Attack Endocrine/Metabolic History: Reports: Diabetes, Type II, Obesity/BMI 30+ Immunologic History: Reports: None Dermatologic History: Reports: None - Infectious Disease History Infectious Disease History: Reports: None - Past Surgical History GI Surgical History: Reports: Colonoscopy, Hernia Repair/Other Social & Family History - Family History Family Medical History: Noncontributory - Tobacco Use Smoking Status *Q: Current Every Day Smoker Years of Tobacco use: 25 Packs/Tins Daily: 1 - Caffeine Use Caffeine Use: Reports: Soda - Alcohol Use Date of Last Drink: 05/07/19 - Recreational Drug Use Recreational Drug Use: No - Living Situation & Occupation Living situation: Reports: Alone Occupation: Employed ED ROS GENERAL - Review of Systems Review Of Systems: See Below ED EXAM, GENERAL - Physical Exam Exam: See Below Course - Vital Signs Last Recorded V/S: Last Vital Signs Temp 36.3 C 05/08/19 11:14 Pulse 88 05/08/19 11:14 Resp 20 05/08/19 08:51 BP 167/116 H 05/08/19 11:14 Pulse Ox 96 05/08/19 11:14 - Orders/Labs/Meds Orders: Active Orders 24 hr Category Date Time Status EKG 12 Lead [EKG Documentation Completion] [RC] ROUTINE Care 05/08/19 11:02 Active RT Aerosol Therapy [RC] ASDIRECTED Care 05/08/19 10:51 Active Labs: Laboratory Tests 05/08/19 05/08/19 05/08/19 Range/Units 09:16 09:16 09:16 WBC 6.98 (4.0-11.0) K/uL RBC 4.66 (4.50-5.90) M/uL Hgb 14.9 (13.0-17.0) g/dL Hct 41.5 (38.0-50.0) % MCV 89.1 (80.0-98.0) fL MCH 32.0 (27.0-32.0) pg MCHC 35.9 (31.0-37.0) g/dL RDW Std Deviation 40.1 (28.0-62.0) fl RDW Coeff of Blank 13 (11.0-15.0) % Plt Count 156 (150-400) K/uL MPV 9.00 (7.40-12.00) fL Neut % (Auto) 62.7 (48.0-80.0) % Lymph % (Auto) 28.1 (16.0-40.0) % [place] % (Auto) 8.2 (0.0-15.0) % Eos % (Auto) 0.4 (0.0-7.0) % Baso % (Auto) 0.6 (0.0-1.5) % Neut # (Auto) 4.4 (1.4-5.7) K/uL Lymph # (Auto) 2.0 (0.6-2.4) K/uL [place] # (Auto) 0.6 (0.0-0.8) K/uL Eos # (Auto) 0.0 (0.0-0.7) K/uL Baso # (Auto) 0.0 (0.0-0.1) K/uL Nucleated RBC % 0.0 /100WBC Nucleated RBCs # 0 K/uL VBG pH 7.52 H (7.31-7.41) VBG pCO2 31 L (35-45) mmHG VBG pO2 55 H (30-40) mmHG VBG HCO3 25 (22-30) mEq/L VBG Total CO2 22 L (41-51) mmol/L VBG Base Excess 3.1 H (-3.0-3.0) Sodium 133 L (136-148) mmol/L Potassium 4.2 (3.5-5.1) mmol/L Chloride 95 L (98-107) mmol/L Carbon Dioxide 25.3 (21.0-32.0) mmol/L BUN 8 (7.0-18.0) mg/dL Creatinine 0.9 (0.8-1.3) mg/dL Est Cr Clr Drug Dosing 105.38 mL/min Estimated GFR (MDRD) > 60.0 ml/min Glucose 349 H (74-106) mg/dL Calcium 9.1 (8.5-10.1) mg/dL Total Bilirubin 0.7 (0.2-1.0) mg/dL AST 35 (15-37) IU/L ALT 48 (14-63) IU/L Alkaline Phosphatase 96 (46-116) U/L Troponin I (0.000-0.056) ng/mL Total Protein 7.3 (6.4-8.2) g/dL Albumin 3.6 (3.4-5.0) g/dL Globulin 3.7 (2.6-4.0) g/dL Albumin/Globulin Ratio 1.0 (0.9-1.6) Ethyl Alcohol 4 mg/dL Ketones (NEG) 05/08/19 05/08/19 Range/Units 09:16 09:16 WBC (4.0-11.0) K/uL RBC (4.50-5.90) M/uL Hgb (13.0-17.0) g/dL Hct (38.0-50.0) % MCV (80.0-98.0) fL MCH (27.0-32.0) pg MCHC (31.0-37.0) g/dL RDW Std Deviation (28.0-62.0) fl RDW Coeff of Blank (11.0-15.0) % Plt Count (150-400) K/uL MPV (7.40-12.00) fL Neut % (Auto) (48.0-80.0) % Lymph % (Auto) (16.0-40.0) % [place] % (Auto) (0.0-15.0) % Eos % (Auto) (0.0-7.0) % Baso % (Auto) (0.0-1.5) % Neut # (Auto) (1.4-5.7) K/uL Lymph # (Auto) (0.6-2.4) K/uL [place] # (Auto) (0.0-0.8) K/uL Eos # (Auto) (0.0-0.7) K/uL Baso # (Auto) (0.0-0.1) K/uL Nucleated RBC % /100WBC Nucleated RBCs # K/uL VBG pH (7.31-7.41) VBG pCO2 (35-45) mmHG VBG pO2 (30-40) mmHG VBG HCO3 (22-30) mEq/L VBG Total CO2 (41-51) mmol/L VBG Base Excess (-3.0-3.0) Sodium (136-148) mmol/L Potassium (3.5-5.1) mmol/L Chloride (98-107) mmol/L Carbon Dioxide (21.0-32.0) mmol/L BUN (7.0-18.0) mg/dL Creatinine (0.8-1.3) mg/dL Est Cr Clr Drug Dosing mL/min Estimated GFR (MDRD) ml/min Glucose (74-106) mg/dL Calcium (8.5-10.1) mg/dL Total Bilirubin (0.2-1.0) mg/dL AST (15-37) IU/L ALT (14-63) IU/L Alkaline Phosphatase (46-116) U/L Troponin I < 0.050 (0.000-0.056) ng/mL Total Protein (6.4-8.2) g/dL Albumin (3.4-5.0) g/dL Globulin (2.6-4.0) g/dL Albumin/Globulin Ratio (0.9-1.6) Ethyl Alcohol mg/dL Ketones NEGATIVE (NEG) Meds: Medications Discontinued Medications Generic Name Dose Route Start Last Admin Trade Name Yamini PRN Reason Stop Dose Admin Albuterol 2.5 mg 05/08/19 10:50 05/08/19 10:58 Proventil Neb Soln NEB 05/08/19 10:51 2.5 mg ONETIME ONE Administration Diazepam 5 mg 05/08/19 10:50 05/08/19 11:23 Valium. PO 05/08/19 10:51 5 mg ONETIME ONE Administration Ondansetron HCl 4 mg 05/08/19 10:50 05/08/19 11:25 Zofran IVPUSH 05/08/19 10:51 4 mg ONETIME ONE Administration Departure - Departure Time of Disposition: 12:13 Disposition: Home, Self-Care 01 Clinical Impression: Alcohol abuse - Discharge Information Prescriptions: chlordiazePOXIDE [Librium] 25 mg PO TID #15 cap Instructions: Alcohol Abuse and Nutrition Referrals: PCP,None [Primary Care Provider] - Forms: ED Department Discharge Additional Instructions: The following information is given to patients seen in the emergency department who are being discharged to home. This information is to outline your options for follow-up care. We provide all patients seen in our emergency department with a follow-up referral. The need for follow-up, as well as the timing and circumstances, are variable depending upon the specifics of your emergency department visit. If you don't have a primary care physician on staff, we will provide you with a referral. We always advise you to contact your personal physician following an emergency department visit to inform them of the circumstance of the visit and for follow-up with them and/or the need for any referrals to a consulting specialist. The emergency department will also refer you to a specialist when appropriate. This referral assures that you have the opportunity for follow-up care with a specialist. All of these measure are taken in an effort to provide you with optimal care, which includes your follow-up. Under all circumstances we always encourage you to contact your private physician who remains a resource for coordinating your care. When calling for follow-up care, please make the office aware that this follow-up is from your recent emergency room visit. If for any reason you are refused follow-up, please contact the [facility] Emergency Department at and asked to speak to the emergency department charge nurse. Sepsis Event Note - Evaluation Sepsis Screening Result: No Definite Risk - Focused Exam Vital Signs: Vital Signs Temp Pulse Resp BP Pulse Ox 05/08/19 11:14 36.3 C 88 167/116 H 96 05/08/19 08:51 35.9 C 87 20 188/138 H 96 Date Exam was Performed: 05/08/19 Time Exam was Performed: 12:11 - My Orders Last 24 Hours: My Active Orders 05/08/19 10:51 RT Aerosol Therapy [RC] ASDIRECTED 05/08/19 11:02 EKG 12 Lead [EKG Documentation Completion] [RC] ROUTINE - Assessment/Plan Last 24 Hours: My Active Orders 05/08/19 10:51 RT Aerosol Therapy [RC] ASDIRECTED 05/08/19 11:02 EKG 12 Lead [EKG Documentation Completion] [RC] ROUTINE
--- NOTE | 2019-05-08 10:41 | CR ---
Chest: 2 views of the chest were obtained. Comparison: Previous chest x-ray 04/06/19. Stable granuloma is noted within the right lung base and within the left lung base. Pacemaker is present. Heart size is normal. No acute parenchymal change is seen. Diaphragms are slightly flattened on the lateral view suggesting emphysematous change. Minimal degenerative change is noted within the spine. Impression: 1. Possible emphysematous change. 2. Other findings which are stable. Nothing acute is otherwise seen. Diagnostic code #2 This report was dictated in [place] Standard Time
[2019-05-08] MEDS ORDERED: Diazepam 5 MG Tab PO ONE (10:50)
[2019-05-08] MEDS ORDERED: Albuterol 0.083% 2.5 MG/3 ML Neb Soln NEB ONE (10:50)
[2019-05-08] MEDS ORDERED: Ondansetron 4 MG/2 ML SDV IVPUSH ONE (10:50)
== END 2019-05-08 12:42 | disposition home or self-care (01) ==
LOC: MW.ED 08:48
DX: F10.239 Alcohol dependence with withdrawal, unspecified (principal); R42 Dizziness and giddiness; R11.2 Nausea with vomiting, unspecified; I10 Essential (primary) hypertension; Z95.0 Presence of cardiac pacemaker; Y90.0 Blood alcohol level of less than 20 mg/100 ml; Z79.899 Other long term (current) drug therapy
CPT/HCPCS: 36415; 71046; 80053; 82009; 82803; 84484; 85025; 93005; 94640; 96374; 99284; A9270; G0480; J2405; 99283

== ENCOUNTER 2019-07-10 03:57 | Emergency (ER) | payer MEDICAID, MEDICARE ==
[2019-07-10] MEDS ORDERED: Sodium Chloride 0.9% 10 ML Syringe FLUSH PRN (04:22)
[2019-07-10] MEDS ORDERED: Sodium Chloride 0.9% 2.5 ML Syringe FLUSH PRN (04:22)
[2019-07-10] MEDS ORDERED: Sodium Chloride 0.9% 1,000 ML IV ONE (04:22)
--- NOTE | 2019-07-10 04:35 | EDM.PDOCBH ---
ED HPI GENERAL MEDICAL PROBLEM - General Chief Complaint: Behavioral/Psych Stated Complaint: MED. CLEARANCE Time Seen by Provider: 07/10/19 04:25 Source of Information: Reports: Patient, Police - History of Present Illness INITIAL COMMENTS - FREE TEXT/NARRATIVE: The patient is a 54-year-old well-known alcoholic who presents to the ER for suicidal ideation. Police states that the patient was posting on Facebook questions about how to kill himself and after the police were contacted they were able to find the patient. They talked with him and he specifically told them that he has been an alcoholic for quite some time and he is progressively getting worse and he is just tired of it. He can stop drinking and he feels hopeless any plans to kill himself. This was a consistent theme. The patient spoke with me and he states that he has been an alcoholic for years. Approximately 4 years ago while he was living in [place] he was drinking alcohol he overdosed on a lot of medications and was taken to the hospital and eventually admitted the patient is also gone through alcohol withdrawal several times including alcoholic seizures, and once he was medically cleared the patient was sent to a psychiatric unit for approximately a week and after that alcohol rehab. The patient states that he was doing good for couple of years and he moved out here to be with his son. However, the patient states that his anxiety started increasing, and were numerous social reasons and the fact that the patient had eventually stopped working which means he was getting more anxious and just sitting around the house, he started drinking slowly again and has not stopped. He states that it started out with a pint, then became the fifth, and now he will drink half a gallon a day of whiskey. His plan is to overdose again as he just feels helpless and he cannot stop. His last drink was about 4 hours ago. - Related Data Allergies Allergy/AdvReac Type Severity Reaction Status Date / Time No Known Allergies Allergy Verified 07/10/19 04:19 Home Meds: Home Meds FLUoxetine [PROzac] 40 mg PO DAILY 06/08/18 [History] Famotidine 20 mg PO BID 02/15/19 [History] Albuterol [Proventil HFA] 2 puff INH Q4H PRN #1 inhaler 02/16/19 [Rx] Fluticasone/Salmeterol [Advair 250-50] 1 puff INH BID #1 diskus 02/16/19 [Rx] Insulin Detemir [Levemir] 20 unit SQ DAILY #1 box 02/16/19 [Rx] lisinopriL [Lisinopril] 20 mg PO DAILY #30 tablet 02/16/19 [Rx] metFORMIN HCl [Metformin HCl] 1,000 mg PO BID #60 tablet 02/16/19 [Rx] Folic Acid 1 mg PO BEDTIME tablet 04/08/19 [Rx] HYDROmorphone [Dilaudid] 2 mg PO Q8H PRN #14 tablet 04/08/19 [Rx] Insulin Aspart [NovoLOG] 6 unit SUBCUT WITHMEALSANDBED #1 pen 04/08/19 [Rx] LORazepam [Ativan] 0 mg PO Q6H PRN tablet 04/08/19 [Rx] Thiamine [Vitamin B-1] 100 mg PO BEDTIME tablet 04/08/19 [Rx] atorvaSTATin [Lipitor] 20 mg PO BEDTIME tablet 04/08/19 [Rx] chlordiazePOXIDE [Librium] 25 mg PO TID #15 cap 05/08/19 [Rx] Past Medical History HEENT History: Reports: Impaired Vision Cardiovascular History: Reports: Hypertension, Pacemaker Respiratory History: Reports: None Gastrointestinal History: Reports: None, Other (See Below) Other Gastrointestinal History: polyps removed Genitourinary History: Reports: None Musculoskeletal History: Reports: Fracture Other Musculoskeletal History: rid in right leg Neurological History: Reports: Neuropathy, Diabetic Psychiatric History: Reports: Anxiety, Depression, Panic Attack Endocrine/Metabolic History: Reports: Diabetes, Type II, Obesity/BMI 30+ Immunologic History: Reports: None Dermatologic History: Reports: None - Infectious Disease History Infectious Disease History: Reports: None - Past Surgical History GI Surgical History: Reports: Colonoscopy, Hernia Repair/Other Social & Family History - Family History Family Medical History: Noncontributory - Caffeine Use Caffeine Use: Reports: Soda - Living Situation & Occupation Living situation: Reports: Alone Occupation: Employed ED ROS GENERAL - Review of Systems Review Of Systems: See Below (Positive for alcoholism, positive for suicidal thoughts, negative for homicidal thoughts, negative for hallucinations, negative chest pain, negative for difficulty breathing, all other Positives and pertinent negatives as per HPI. All other pertinent systems were reviewed and are negative) ED EXAM, BEHAVIORAL HEALTH - Physical Exam Exam: See Below Text/Narrative:: Constitutional: No acute distress, Non-toxic appearance, smells strongly of alcohol but is clinically sober HEENT.: Normocephalic, Atraumatic, PERRL, EOMI, External ears are atraumatic, nares are patent without epistaxis, oropharynx and mucous membranes are extremely dry Neck: Normal range of motion, Trachea Midline, No stridor Respiratory.: No respiratory distress, No tachypnea, Lungs Clear to Auscultation bilaterally without wheezes, rales, or rhonchi Cardiovascular.: Regular rate and Rhythm without murmurs, rubs, or gallops, good peripheral perfusion GI: Abdomen soft and non tender, obese Genital Urinary: Deferred Musculoskeletal: Good range of motion. All 4 extremities present and atraumatic , no edema Back: Full Range of Motion Skin: Warm, Dry, Color is ethnicity appropriate, No acute rash. Lymphatic: No lymphadenopathy noted Neurological: Alert, Awake and oriented x 3, No focal deficits noted appreciate , no nystagmus, no tremor, clinically sober, no slurred speech, GCS 15 Psych: Depressed, suicidal COURSE, BEHAVIORAL HEALTH COMP - Course Vital Signs: Last Vital Signs Temp 36.6 C 07/10/19 06:41 Pulse 83 07/10/19 06:41 Resp 20 07/10/19 06:41 BP 136/90 07/10/19 06:41 Pulse Ox 97 07/10/19 06:41 Orders, Labs, Meds: Active Orders 24 hr Category Date Time Status EKG Documentation Completion [RC] STAT Care 07/10/19 04:21 Active Sodium Chloride 0.9% [Saline Flush] Med 07/10/19 04:22 Active 10 ml FLUSH ASDIRECTED PRN Sodium Chloride 0.9% [Saline Flush] Med 07/10/19 04:22 Active 2.5 ml FLUSH ASDIRECTED PRN Saline Lock Insert [OM.PC] Stat Oth 07/10/19 04:22 Ordered Medication Orders Sodium Chloride (Saline Flush) 10 ml FLUSH ASDIRECTED PRN PRN Reason: Keep Vein Open Last Admin: 07/10/19 04:47 Dose: 10 ml Sodium Chloride (Saline Flush) 2.5 ml FLUSH ASDIRECTED PRN PRN Reason: Keep Vein Open Last Admin: 07/10/19 04:48 Dose: 2.5 ml Laboratory Tests 07/10/19 07/10/19 07/10/19 Range/Units 04:25 04:25 04:43 WBC 9.48 (4.0-11.0) K/uL RBC 5.04 (4.50-5.90) M/uL Hgb 16.4 (13.0-17.0) g/dL Hct 47.8 (38.0-50.0) % MCV 94.8 (80.0-98.0) fL MCH 32.5 H (27.0-32.0) pg MCHC 34.3 (31.0-37.0) g/dL RDW Std Deviation 48.6 (28.0-62.0) fl RDW Coeff of Blank 14 (11.0-15.0) % Plt Count 155 (150-400) K/uL MPV 9.60 (7.40-12.00) fL Neut % (Auto) 45.2 L (48.0-80.0) % Lymph % (Auto) 46.3 H (16.0-40.0) % Elbert % (Auto) 7.7 (0.0-15.0) % Eos % (Auto) 0.4 (0.0-7.0) % Baso % (Auto) 0.4 (0.0-1.5) % Neut # (Auto) 4.3 (1.4-5.7) K/uL Lymph # (Auto) 4.4 H (0.6-2.4) K/uL Elbert # (Auto) 0.7 (0.0-0.8) K/uL Eos # (Auto) 0.0 (0.0-0.7) K/uL Baso # (Auto) 0.0 (0.0-0.1) K/uL Nucleated RBC % 0.0 /100WBC Nucleated RBCs # 0 K/uL Sodium (136-148) mmol/L Potassium (3.5-5.1) mmol/L Chloride (98-107) mmol/L Carbon Dioxide (21.0-32.0) mmol/L BUN (7.0-18.0) mg/dL Creatinine (0.8-1.3) mg/dL Est Cr Clr Drug Dosing mL/min Estimated GFR (MDRD) ml/min Glucose (74-106) mg/dL Calcium (8.5-10.1) mg/dL Magnesium (1.8-2.4) mg/dL Total Bilirubin (0.2-1.0) mg/dL AST (15-37) IU/L ALT (14-63) IU/L Alkaline Phosphatase (46-116) U/L Total Protein (6.4-8.2) g/dL Albumin (3.4-5.0) g/dL Globulin (2.6-4.0) g/dL Albumin/Globulin Ratio (0.9-1.6) TSH 3rd Generation (0.36-3.74) uIU/mL Urine Color YELLOW Urine Appearance CLEAR Urine pH 6.0 (5.0-8.0) Ur Specific [place] 1.010 (1.001-1.035) Urine Protein 30 H (NEGATIVE) mg/dL Urine Glucose (UA) >=1000 (NEGATIVE) mg/dL Urine Ketones NEGATIVE (NEGATIVE) mg/dL Urine Occult Blood SMALL H (NEGATIVE) Urine Nitrite NEGATIVE (NEGATIVE) Urine Bilirubin NEGATIVE (NEGATIVE) Urine Urobilinogen 0.2 (<2.0) EU/dL Ur Leukocyte Esterase NEGATIVE (NEGATIVE) Urine RBC 0-1 (0-2/HPF) Urine WBC 0-1 (0-5/HPF) Ur Epithelial Cells RARE (NONE-FEW) Urine Bacteria RARE (NEGATIVE) Urine Mucus LIGHT (NONE-MOD) Salicylates (0-20) mg/dL Urine Opiates Screen NEGATIVE (NEGATIVE) Ur Oxycodone Screen NEGATIVE (NEGATIVE) Urine Methadone Screen NEGATIVE (NEGATIVE) Acetaminophen ug/mL Ur Barbiturates Screen NEGATIVE (NEGATIVE) Ur Phencyclidine Scrn NEGATIVE (NEGATIVE) Ur Amphetamine Screen NEGATIVE (NEGATIVE) U Methamphetamines Scrn NEGATIVE (NEGATIVE) U Benzodiazepines Scrn NEGATIVE (NEGATIVE) U Cocaine Metab Screen NEGATIVE (NEGATIVE) U Marijuana (THC) Screen NEGATIVE (NEGATIVE) Ethyl Alcohol mg/dL 07/10/19 Range/Units 04:43 WBC (4.0-11.0) K/uL RBC (4.50-5.90) M/uL Hgb (13.0-17.0) g/dL Hct (38.0-50.0) % MCV (80.0-98.0) fL MCH (27.0-32.0) pg MCHC (31.0-37.0) g/dL RDW Std Deviation (28.0-62.0) fl RDW Coeff of Blank (11.0-15.0) % Plt Count (150-400) K/uL MPV (7.40-12.00) fL Neut % (Auto) (48.0-80.0) % Lymph % (Auto) (16.0-40.0) % Elbert % (Auto) (0.0-15.0) % Eos % (Auto) (0.0-7.0) % Baso % (Auto) (0.0-1.5) % Neut # (Auto) (1.4-5.7) K/uL Lymph # (Auto) (0.6-2.4) K/uL Elbert # (Auto) (0.0-0.8) K/uL Eos # (Auto) (0.0-0.7) K/uL Baso # (Auto) (0.0-0.1) K/uL Nucleated RBC % /100WBC Nucleated RBCs # K/uL Sodium 136 (136-148) mmol/L Potassium 4.1 (3.5-5.1) mmol/L Chloride 96 L (98-107) mmol/L Carbon Dioxide 25.1 (21.0-32.0) mmol/L BUN 9 (7.0-18.0) mg/dL Creatinine 1.1 (0.8-1.3) mg/dL Est Cr Clr Drug Dosing 86.22 mL/min Estimated GFR (MDRD) > 60.0 ml/min Glucose 439 H (74-106) mg/dL Calcium 8.8 (8.5-10.1) mg/dL Magnesium 1.6 L (1.8-2.4) mg/dL Total Bilirubin 0.3 (0.2-1.0) mg/dL AST 77 H (15-37) IU/L ALT 73 H (14-63) IU/L Alkaline Phosphatase 96 (46-116) U/L Total Protein 7.3 (6.4-8.2) g/dL Albumin 3.5 (3.4-5.0) g/dL Globulin 3.8 (2.6-4.0) g/dL Albumin/Globulin Ratio 0.9 (0.9-1.6) TSH 3rd Generation 2.89 (0.36-3.74) uIU/mL Urine Color Urine Appearance Urine pH (5.0-8.0) Ur Specific [place] (1.001-1.035) Urine Protein (NEGATIVE) mg/dL Urine Glucose (UA) (NEGATIVE) mg/dL Urine Ketones (NEGATIVE) mg/dL Urine Occult Blood (NEGATIVE) Urine Nitrite (NEGATIVE) Urine Bilirubin (NEGATIVE) Urine Urobilinogen (<2.0) EU/dL Ur Leukocyte Esterase (NEGATIVE) Urine RBC (0-2/HPF) Urine WBC (0-5/HPF) Ur Epithelial Cells (NONE-FEW) Urine Bacteria (NEGATIVE) Urine Mucus (NONE-MOD) Salicylates 4.2 (0-20) mg/dL Urine Opiates Screen (NEGATIVE) Ur Oxycodone Screen (NEGATIVE) Urine Methadone Screen (NEGATIVE) Acetaminophen <2.0 ug/mL Ur Barbiturates Screen (NEGATIVE) Ur Phencyclidine Scrn (NEGATIVE) Ur Amphetamine Screen (NEGATIVE) U Methamphetamines Scrn (NEGATIVE) U Benzodiazepines Scrn (NEGATIVE) U Cocaine Metab Screen (NEGATIVE) U Marijuana (THC) Screen (NEGATIVE) Ethyl Alcohol 213 mg/dL Medications Generic Name Dose Route Start Last Admin Trade Name Freq PRN Reason Stop Dose Admin Sodium Chloride 10 ml 07/10/19 04:22 07/10/19 04:47 Saline Flush FLUSH 10 ml ASDIRECTED PRN Administration Keep Vein Open Sodium Chloride 2.5 ml 07/10/19 04:22 07/10/19 04:48 Saline Flush FLUSH 2.5 ml ASDIRECTED PRN Administration Keep Vein Open Discontinued Medications Generic Name Dose Route Start Last Admin Trade Name Freq PRN Reason Stop Dose Admin Acetaminophen 975 mg 07/10/19 06:05 07/10/19 06:09 Tylenol PO 07/10/19 06:06 975 mg NOW ONE Administration Sodium Chloride 1,000 mls @ 999 mls/hr 07/10/19 04:22 07/10/19 04:43 Normal Saline IV 07/10/19 05:22 999 mls/hr .Bolus ONE Administration Phenobarbital 1,200 mg/ Sodium 109.2308 mls @ 200 mls/hr 07/10/19 05:38 07/09 06:08 Chloride IV 07/10/19 06:07 200 mls/hr ONETIME ONE Administration Phenobarbital Confirm 07/10/19 05:58 07/10/19 06:10 Phenobarbital Sodium Administered 07/10/19 05:59 Not Given Dose 1,300 mg .ROUTE .STK-MED ONE Medical Clearance: Clinically the patient is sober, but he smells very strongly of alcohol and I suspect despite the clinical sobriety his blood alcohol level will be high. For now we will initiate the standard psychiatric protocol and give the patient some fluids since his mucous membranes are dry. Once the patient starts exhibiting any signs of alcohol withdrawal such as shakiness, etc. I will start him on phenobarbital 10 mg/kg IV for prolonged KENDAL suppression, and I will have to make the decision when the patient has been medically cleared for psychiatric evaluation and treatment. The ECG was read and interpreted by me -there are P waves before every regular QRS with a ventricular rate of 84 bpm. NE, QRS and QT intervals are unremarkable. There are prominent S waves in the inferior leads, and poor R wave progression. ST segments are baseline and T wave morphology has no acute changes. Final interpretation is a normal sinus rhythm with no acute findings. Lab work is unremarkable from an emergency standpoint. The patient is hyperglycemic but he is not in DKA and he shows no signs/symptoms of a hyperosmolar coma, hyperosmolar syndrome or any other related diabetic emergency. The patient's alcohol is elevated but as discussed the patient is clinically sober. He has mildly elevated liver enzymes consistent with an alcoholic transaminitis but this is also not clinically relevant from an emergency perspective. Given that this patient does have a history of a suicide attempt, and at this time remains suicidal, without any reasonable changes in his social situation and no one to help him, I believe that he needs inpatient treatment for both his depression, suicidal ideation as well as his alcoholism. At this time he has been medically cleared for psychiatric evaluation and treatment of both these conditions as discussed above. 07/10/19 05:23 07/10/19 06:07 07/10/19 06:10 Departure - Departure Time of Disposition: 06:09 Disposition: DC/Tfer to Psych Hosp/Unit 65 Condition: Good Clinical Impression: Suicidal ideation, Depression, Alcoholism - Discharge Information Referrals: Ramon Adames MD [Primary Care Provider] - Forms: ED Department Discharge Sepsis Event Note - Evaluation Sepsis Screening Result: No Definite Risk - Focused Exam Vital Signs: Vital Signs Temp Pulse Resp BP Pulse Ox 07/10/19 06:41 36.6 C 83 20 136/90 97 07/10/19 05:51 36.5 C 82 20 122/80 94 L 07/10/19 04:49 89 22 H 123/81 95 07/10/19 04:00 36.5 C 96 20 166/117 H 96 Date Exam was Performed: 07/10/19 Time Exam was Performed: 06:42 - My Orders Last 24 Hours: My Active Orders 07/10/19 04:21 EKG Documentation Completion [RC] STAT 07/10/19 04:22 Sodium Chloride 0.9% [Saline Flush] 10 ml FLUSH ASDIRECTED PRN Sodium Chloride 0.9% [Saline Flush] 2.5 ml FLUSH ASDIRECTED PRN Saline Lock Insert [OM.PC] Stat - Assessment/Plan Last 24 Hours: My Active Orders 07/10/19 04:21 EKG Documentation Completion [RC] STAT 07/10/19 04:22 Sodium Chloride 0.9% [Saline Flush] 10 ml FLUSH ASDIRECTED PRN Sodium Chloride 0.9% [Saline Flush] 2.5 ml FLUSH ASDIRECTED PRN Saline Lock Insert [OM.PC] Stat
[2019-07-10 05:27] LABS: ACETAMINOPHEN <2.0 ug/mL; BLOOD UREA NITROGEN,BUN 9 mg/dL (7.0-18.0); CARBON DIOXIDE,CO2 25.1 mmol/L (21.0-32.0); CHLORIDE,CL 96 mmol/L (98-107); GLUCOSE RANDOM 439 mg/dL (74-106); POTASSIUM,K 4.1 mmol/L (3.5-5.1); SODIUM,NA 136 mmol/L (136-148)
[2019-07-10] MEDS ORDERED: PHENOBARBITAL SODIUM IV ONE (05:38)
[2019-07-10] MEDS ORDERED: SODIUM CHLORIDE 0.9% IV ONE (05:38)
[2019-07-10] MEDS ORDERED: PHENobarbital Sodium 130 MG/ML SDV ONE (05:58)
[2019-07-10] MEDS ORDERED: Acetaminophen 325 MG Tab PO ONE (06:05)
== END 2019-07-10 07:39 ==
LOC: MW.ED 03:57
DX: F32.9 Major depressive disorder, single episode, unspecified (principal); F10.229 Alcohol dependence with intoxication, unspecified; Y90.7 Blood alcohol level of 200-239 mg/100 ml; I10 Essential (primary) hypertension; F41.0 Panic disorder [episodic paroxysmal anxiety]; E11.40 Type 2 diabetes mellitus with diabetic neuropathy, unspecified; E66.9 Obesity, unspecified; Z68.33 Body mass index [BMI] 33.0-33.9, adult; Z79.899 Other long term (current) drug therapy; Z79.4 Long term (current) use of insulin
CPT/HCPCS: 36415; 80053; 80305; 80307; 81001; 83735; 84443; 85025; 93005; 96361; 96365; 99284; A9270; J2560; J7030; J7050

== ENCOUNTER 2019-09-02 08:59 | Emergency (ER) | payer MEDICARE, OTHER ==
[2019-09-02] MEDS ORDERED: Sodium Chloride 0.9% 2.5 ML Syringe FLUSH PRN (09:07)
[2019-09-02] MEDS ORDERED: Sodium Chloride 0.9% 10 ML Syringe FLUSH PRN (09:07)
[2019-09-02] MEDS ORDERED: PHENobarbitaL sodium 260 MG in Sodium Chloride 0.9% 100 ML IV ONE (09:09)
--- NOTE | 2019-09-02 09:20 | EDM.PDOC ---
ED HPI GENERAL MEDICAL PROBLEM - General Chief Complaint: Chest Pain Stated Complaint: CHEST PAIN/SOB Time Seen by Provider: 09/02/19 09:00 - History of Present Illness INITIAL COMMENTS - FREE TEXT/NARRATIVE: Patient is a 54-year-old male with a history of significant alcoholism patient presenting with sensation of shortness of breath and sensation of panic and severe anxiety. Patient reports that he has been without his medication including his insulin for the last week. He recently got out of detox. However he started drinking heavily again a few days ago. When he is drinking he can drink up to half a gallon of liquor in a day. Sometime yesterday he passed out from his drinking and he woke up this morning with profound overwhelming feeling of anxiety and shakiness [facility] as he has a history of depression did not help his symptoms so he presents here. He denies chest pain he denies abdominal pain but he does report vomiting. He denies fevers or chills. Symptoms constant and worsening without alleviating factors radiation or other associated symptoms. Chest Pain Score (Numeric/FACES): 5 - Related Data Allergies Allergy/AdvReac Type Severity Reaction Status Date / Time No Known Allergies Allergy Verified 09/02/19 09:12 Home Meds: Home Meds FLUoxetine [PROzac] 40 mg PO DAILY 06/08/18 [History] Famotidine 20 mg PO BID 02/15/19 [History] Albuterol [Proventil HFA] 2 puff INH Q4H PRN #1 inhaler 02/16/19 [Rx] Fluticasone/Salmeterol [Advair 250-50] 1 puff INH BID #1 diskus 02/16/19 [Rx] Insulin Detemir [Levemir] 20 unit SQ DAILY #1 box 02/16/19 [Rx] lisinopriL [Lisinopril] 20 mg PO DAILY #30 tablet 02/16/19 [Rx] metFORMIN HCl [Metformin HCl] 1,000 mg PO BID #60 tablet 02/16/19 [Rx] Folic Acid 1 mg PO BEDTIME tablet 04/08/19 [Rx] HYDROmorphone [Dilaudid] 2 mg PO Q8H PRN #14 tablet 04/08/19 [Rx] Insulin Aspart [NovoLOG] 6 unit SUBCUT WITHMEALSANDBED #1 pen 04/08/19 [Rx] LORazepam [Ativan] 0 mg PO Q6H PRN tablet 04/08/19 [Rx] Thiamine [Vitamin B-1] 100 mg PO BEDTIME tablet 04/08/19 [Rx] atorvaSTATin [Lipitor] 20 mg PO BEDTIME tablet 04/08/19 [Rx] chlordiazePOXIDE [Librium] 25 mg PO TID #15 cap 05/08/19 [Rx] Past Medical History HEENT History: Reports: Impaired Vision Cardiovascular History: Reports: Hypertension, Pacemaker Respiratory History: Reports: None Gastrointestinal History: Reports: None, Other (See Below) Other Gastrointestinal History: polyps removed Genitourinary History: Reports: None Musculoskeletal History: Reports: Fracture Other Musculoskeletal History: rid in right leg Neurological History: Reports: Neuropathy, Diabetic Psychiatric History: Reports: Anxiety, Depression, Panic Attack Endocrine/Metabolic History: Reports: Diabetes, Type II, Obesity/BMI 30+ Hematologic History: Reports: None Immunologic History: Reports: None Oncologic (Cancer) History: Reports: None Dermatologic History: Reports: None - Infectious Disease History Infectious Disease History: Reports: None - Past Surgical History Cardiovascular Surgical History: Reports: Pacer GI Surgical History: Reports: Colonoscopy, Hernia Repair/Other Social & Family History - Family History Family Medical History: Noncontributory - Tobacco Use Smoking Status *Q: Current Every Day Smoker Years of Tobacco use: 30 Packs/Tins Daily: 1 - Caffeine Use Caffeine Use: Reports: Soda - Recreational Drug Use Recreational Drug Use: No - Living Situation & Occupation Living situation: Reports: Alone Occupation: Employed ED ROS GENERAL - Review of Systems Review Of Systems: See Below Free Text/Narrative/Comment: General: Per HPI Skin: No rash. Eyes: No vision problems. ENT: No sore throat. Neck: No neck stiffness. Respiratory: Per HPI Cardiac: No chest pain. Gastrointestinal: Per HPI Urinary: No dysuria. Musculoskeletal: No myalgias/arthralgias. Neurologic: No headache. ED EXAM, GENERAL - Physical Exam Exam: See Below Free Text/Narrative:: General Appearance: Anxious and tremulous without acute distress Skin: No rash HEENT: Normocephalic/atraumatic, sclera anicteric, mucous membranes moist Neck: Normal range of motion Chest and Lungs: Bilateral breath sounds, clear to auscultation Cardiovascular: Minimally tachycardic rate regular rhythm intact distal perfusion Abdomen: Soft, non-tender Back: Normal Musculoskeletal: No edema or tenderness Neurologic: Awake and alert and O x4, positive tongue fasciculations positive shakiness positive psychomotor agitation. Psychiatric: Anxious, cooperative EKG INTERPRETATION EKG Interpretation Comments: EKG obtained at 0906 demonstrates normal sinus rhythm rate of 97 mild right axis deviation no acute ischemia Course - Vital Signs Last Recorded V/S: Last Vital Signs Temp 96.4 F L 09/02/19 09:10 Pulse 85 09/02/19 10:38 Resp 20 09/02/19 10:38 BP 143/91 H 09/02/19 10:38 Pulse Ox 94 L 09/02/19 10:38 - Orders/Labs/Meds Orders: Active Orders 24 hr Category Date Time Status EKG 12 Lead [EKG Documentation Completion] [RC] STAT Care 09/02/19 09:00 Active GLUCOSE,POC [POC] Routine Lab 09/02/19 11:55 Received Sodium Chloride 0.9% [Normal Saline] 1,000 ml Med 09/02/19 11:04 Active IV .Bolus Sodium Chloride 0.9% [Saline Flush] Med 09/02/19 09:07 Active 10 ml FLUSH ASDIRECTED PRN Sodium Chloride 0.9% [Saline Flush] Med 09/02/19 09:07 Active 2.5 ml FLUSH ASDIRECTED PRN Saline Lock Insert [OM.PC] Stat Oth 09/02/19 09:07 Ordered Medication Orders Sodium Chloride (Normal Saline) 1,000 mls @ 999 mls/hr IV .Bolus ONE Stop: 09/02/19 12:04 Last Admin: 09/02/19 11:04 Dose: 999 mls/hr Sodium Chloride (Saline Flush) 10 ml FLUSH ASDIRECTED PRN PRN Reason: Keep Vein Open Last Admin: 09/02/19 09:41 Dose: 10 ml Sodium Chloride (Saline Flush) 2.5 ml FLUSH ASDIRECTED PRN PRN Reason: Keep Vein Open Last Admin: 09/02/19 09:41 Dose: 2.5 ml Labs: Laboratory Tests 09/02/19 09/02/19 09/02/19 Range/Units 09:00 09:00 09:00 WBC 13.40 H (4.0-11.0) K/uL RBC 5.00 (4.50-5.90) M/uL Hgb 16.1 (13.0-17.0) g/dL Hct 45.3 (38.0-50.0) % MCV 90.6 (80.0-98.0) fL MCH 32.2 H (27.0-32.0) pg MCHC 35.5 (31.0-37.0) g/dL RDW Std Deviation 44.0 (28.0-62.0) fl RDW Coeff of Blank 14 (11.0-15.0) % Plt Count 233 (150-400) K/uL MPV 9.00 (7.40-12.00) fL Neut % (Auto) 63.0 (48.0-80.0) % Lymph % (Auto) 30.6 (16.0-40.0) % [place] % (Auto) 5.5 (0.0-15.0) % Eos % (Auto) 0.6 (0.0-7.0) % Baso % (Auto) 0.3 (0.0-1.5) % Neut # (Auto) 8.4 H (1.4-5.7) K/uL Lymph # (Auto) 4.1 H (0.6-2.4) K/uL [place] # (Auto) 0.7 (0.0-0.8) K/uL Eos # (Auto) 0.1 (0.0-0.7) K/uL Baso # (Auto) 0.0 (0.0-0.1) K/uL Nucleated RBC % 0.0 /100WBC Nucleated RBCs # 0 K/uL INR 1.08 Sodium 130 L (136-148) mmol/L Potassium 4.0 (3.5-5.1) mmol/L Chloride 91 L (98-107) mmol/L Carbon Dioxide 26.1 (21.0-32.0) mmol/L BUN 9 (7.0-18.0) mg/dL Creatinine 1.0 (0.8-1.3) mg/dL Est Cr Clr Drug Dosing 94.84 mL/min Estimated GFR (MDRD) > 60.0 ml/min Glucose 318 H (74-106) mg/dL Calcium 8.4 L (8.5-10.1) mg/dL Magnesium 1.5 L (1.8-2.4) mg/dL Total Bilirubin 0.9 (0.2-1.0) mg/dL AST 35 (15-37) IU/L ALT 37 (14-63) IU/L Alkaline Phosphatase 103 (46-116) U/L Troponin I < 0.050 (0.000-0.056) ng/mL Total Protein 8.1 (6.4-8.2) g/dL Albumin 4.0 (3.4-5.0) g/dL Globulin 4.1 H (2.6-4.0) g/dL Albumin/Globulin Ratio 1.0 (0.9-1.6) Ethyl Alcohol mg/dL 09/02/19 Range/Units 09:00 WBC (4.0-11.0) K/uL RBC (4.50-5.90) M/uL Hgb (13.0-17.0) g/dL Hct (38.0-50.0) % MCV (80.0-98.0) fL MCH (27.0-32.0) pg MCHC (31.0-37.0) g/dL RDW Std Deviation (28.0-62.0) fl RDW Coeff of Blank (11.0-15.0) % Plt Count (150-400) K/uL MPV (7.40-12.00) fL Neut % (Auto) (48.0-80.0) % Lymph % (Auto) (16.0-40.0) % [place] % (Auto) (0.0-15.0) % Eos % (Auto) (0.0-7.0) % Baso % (Auto) (0.0-1.5) % Neut # (Auto) (1.4-5.7) K/uL Lymph # (Auto) (0.6-2.4) K/uL [place] # (Auto) (0.0-0.8) K/uL Eos # (Auto) (0.0-0.7) K/uL Baso # (Auto) (0.0-0.1) K/uL Nucleated RBC % /100WBC Nucleated RBCs # K/uL INR Sodium (136-148) mmol/L Potassium (3.5-5.1) mmol/L Chloride (98-107) mmol/L Carbon Dioxide (21.0-32.0) mmol/L BUN (7.0-18.0) mg/dL Creatinine (0.8-1.3) mg/dL Est Cr Clr Drug Dosing mL/min Estimated GFR (MDRD) ml/min Glucose (74-106) mg/dL Calcium (8.5-10.1) mg/dL Magnesium (1.8-2.4) mg/dL Total Bilirubin (0.2-1.0) mg/dL AST (15-37) IU/L ALT (14-63) IU/L Alkaline Phosphatase (46-116) U/L Troponin I (0.000-0.056) ng/mL Total Protein (6.4-8.2) g/dL Albumin (3.4-5.0) g/dL Globulin (2.6-4.0) g/dL Albumin/Globulin Ratio (0.9-1.6) Ethyl Alcohol 37 mg/dL Meds: Medications Generic Name Dose Route Start Last Admin Trade Name Freq PRN Reason Stop Dose Admin Sodium Chloride 1,000 mls @ 999 mls/hr 09/02/19 11:04 09/02/19 11:04 Normal Saline IV 09/02/19 12:04 999 mls/hr .Bolus ONE Administration Sodium Chloride 10 ml 09/02/19 09:07 09/02/19 09:41 Saline Flush FLUSH 10 ml ASDIRECTED PRN Administration Keep Vein Open Sodium Chloride 2.5 ml 09/02/19 09:07 09/02/19 09:41 Saline Flush FLUSH 2.5 ml ASDIRECTED PRN Administration Keep Vein Open Discontinued Medications Generic Name Dose Route Start Last Admin Trade Name Freq PRN Reason Stop Dose Admin Folic Acid 1 mg 09/02/19 10:40 09/02/19 11:51 Folic Acid PO 09/02/19 10:41 1 mg ONETIME ONE Administration Phenobarbital 260 mg/ Sodium 102 mls @ 520 mls/hr 09/02/19 09:09 09/02/19 09: 40 Chloride IV 09/02/19 09:20 520 mls/hr ONETIME ONE Administration Sodium Chloride 1,000 mls @ 1,000 mls/hr 09/02/19 10:05 09/02/19 10:20 Normal Saline IV 09/02/19 11:04 1,000 mls/hr .Bolus ONE Administration Sodium Chloride 1,000 mls @ 2,000 mls/hr 09/02/19 11:04 09/02/19 11:51 Normal Saline IV 09/02/19 11:33 Not Given .Bolus ONE Ketorolac Tromethamine 15 mg 09/02/19 11:41 09/02/19 11:51 Toradol IVPUSH 09/02/19 11:42 15 mg ONETIME ONE Administration Magnesium Oxide 800 mg 09/02/19 10:04 09/02/19 10:19 Magnesium Oxide PO 09/02/19 10:05 800 mg ONETIME ONE Administration Ondansetron HCl 4 mg 09/02/19 09:36 09/02/19 09:39 Zofran IVPUSH 09/02/19 09:37 4 mg ONETIME ONE Administration Ondansetron HCl Confirm 09/02/19 09:37 09/02/19 09:41 Zofran Administered 09/02/19 09:38 Not Given Dose 4 mg .ROUTE .STK-MED ONE Thiamine HCl 100 mg 09/02/19 10:40 09/02/19 11:51 Vitamin B-1 PO 09/02/19 10:41 100 mg ONETIME ONE Administration Departure - Departure Time of Disposition: 11:58 Disposition: Home, Self-Care 01 Clinical Impression: Alcohol withdrawal, Hyperglycemia due to diabetes mellitus, Hyponatremia - Discharge Information *PRESCRIPTION DRUG MONITORING PROGRAM REVIEWED*: Not Applicable *COPY OF PRESCRIPTION DRUG MONITORING REPORT IN PATIENT TORRI: Not Applicable Instructions: Alcohol Use Disorder, Hyperglycemia, [id number], Alcohol Withdrawal Syndrome, [id number] Referrals: PCP,Unobtain [Ordering Only Provider] - Forms: ED Department Discharge Additional Instructions: Having significant financial difficulty when it comes or affording her medications. Since you will not be able to fill your insulin prescription it is important that you try and have a low carbohydrate diet to help manage your blood sugar. Staying well-hydrated with nonalcoholic beverages will help as well. I think your idea of trying to return to detox is a good one and I encourage you to do so. If your symptoms worsen again and are not manageable I encourage you to go to the nearest emergency room. Critical Care Note - Critical Care Note Total Time (mins): 45 Comments: Patient presented with signs and symptoms that were concerning for acute alcohol withdrawal and severe DTs. I had to stop attending to multiple other patients in order to immediately evaluate and attend to him. Serial reassessments were required. Sepsis Event Note - Evaluation Sepsis Screening Result: No Definite Risk - Focused Exam Vital Signs: Vital Signs Temp Pulse Resp BP Pulse Ox 09/02/19 10:38 85 20 143/91 H 94 L 09/02/19 09:42 86 18 153/96 H 97 09/02/19 09:10 96.4 F L 103 H 24 H 153/96 H 99 Date Exam was Performed: 09/02/19 Time Exam was Performed: 11:56 - My Orders Last 24 Hours: My Active Orders 09/02/19 09:00 EKG 12 Lead [EKG Documentation Completion] [RC] STAT 09/02/19 09:07 Sodium Chloride 0.9% [Saline Flush] 10 ml FLUSH ASDIRECTED PRN Sodium Chloride 0.9% [Saline Flush] 2.5 ml FLUSH ASDIRECTED PRN Saline Lock Insert [OM.PC] Stat 09/02/19 11:04 Sodium Chloride 0.9% [Normal Saline] 1,000 ml IV .Bolus 09/02/19 11:55 GLUCOSE,POC [POC] Routine - Assessment/Plan Last 24 Hours: My Active Orders 09/02/19 09:00 EKG 12 Lead [EKG Documentation Completion] [RC] STAT 09/02/19 09:07 Sodium Chloride 0.9% [Saline Flush] 10 ml FLUSH ASDIRECTED PRN Sodium Chloride 0.9% [Saline Flush] 2.5 ml FLUSH ASDIRECTED PRN Saline Lock Insert [OM.PC] Stat 09/02/19 11:04 Sodium Chloride 0.9% [Normal Saline] 1,000 ml IV .Bolus 09/02/19 11:55 GLUCOSE,POC [POC] Routine Assessment:: Patient is a 54-year-old male presenting with signs and symptoms most concerning for acute alcohol withdrawal. He is tremulous he is shaky he is tachycardic he is hypertensive he is highly anxious. Initial CIWA was in the 20s. Patient was given 260 mg of phenobarbital with improvement in vital signs and improvement in tremors and anxiety. Chest x-ray is without acute finding his EKG is without concerning finding initial blood work demonstrates significant hyper glycemia but no signs of metabolic acidosis or DKA. Patient is hypomagnesemic and this was repleted with 800 mg of p.o. magnesium. 2 L of normal saline have been ordered for the hyperglycemia and we will recheck his sugar and reassess his CIWA score. We will discuss whether or not he will be able to fill prescriptions if I provide him. Patient's electrolytes were repleted his CIWA score improved his vital signs are good and he is resting comfortably. Blood glucose improved with IV fluid. Unfortunately patient has a valid prescriptions for insulin at the pharmacy but cannot afford to fill them. He is also trying to go back to [place]. He is going to try to go back to detox I think that is reasonable. Return precautions were discussed and understood.
[2019-09-02] MEDS ORDERED: Ondansetron 4 MG/2 ML SDV IVPUSH ONE (09:36)
[2019-09-02 09:37] LABS: BLOOD UREA NITROGEN,BUN 9 mg/dL (7.0-18.0); CARBON DIOXIDE,CO2 26.1 mmol/L (21.0-32.0); CHLORIDE,CL 91 mmol/L (98-107); GLUCOSE RANDOM 318 mg/dL (74-106); SODIUM,NA 130 mmol/L (136-148)
[2019-09-02] MEDS ORDERED: Ondansetron 4 MG/2 ML SDV ONE (09:37)
--- NOTE | 2019-09-02 09:49 | CR ---
Chest: Portable view of the chest was obtained. Comparison: Previous chest x-ray of 05/08/19. Calcified granulomas are seen within the chest which are stable. No acute parenchymal change is seen. Bichamber pacemaker is noted. Lungs show no acute parenchymal change. Bony structures are grossly intact. Impression: 1. Findings as noted above. 2. Nothing acute is seen. Diagnostic code #2 This report was dictated in MDT
[2019-09-02] MEDS ORDERED: Magnesium Oxide 400 MG Tab PO ONE (10:04)
[2019-09-02] MEDS ORDERED: Sodium Chloride 0.9% 1,000 ML IV ONE ×3 (10:05→11:04)
[2019-09-02] MEDS ORDERED: Thiamine 100 MG Tab PO ONE (10:40)
[2019-09-02] MEDS ORDERED: Folic Acid 1 MG Tab PO ONE (10:40)
[2019-09-02] MEDS ORDERED: Ketorolac 30 MG/ML SDV IVPUSH ONE (11:41)
== END 2019-09-02 12:23 | disposition home or self-care (01) ==
LOC: MW.ED 08:59
DX: E11.65 Type 2 diabetes mellitus with hyperglycemia (principal); E87.1 Hypo-osmolality and hyponatremia; F10.239 Alcohol dependence with withdrawal, unspecified; E11.40 Type 2 diabetes mellitus with diabetic neuropathy, unspecified; I10 Essential (primary) hypertension; E66.9 Obesity, unspecified; Z68.33 Body mass index [BMI] 33.0-33.9, adult; Z79.4 Long term (current) use of insulin; Z79.899 Other long term (current) drug therapy; F17.210 Nicotine dependence, cigarettes, uncomplicated
CPT/HCPCS: 71045; 80053; 80307; 82962; 83735; 84484; 85025; 85610; 93005; 96361; 96374; 96375; 99285; A9270; J1885; J2405; J2560; J7030; J7050; 99291

== ENCOUNTER 2019-09-07 16:16 | Emergency (ER) | payer MEDICARE ==
[2019-09-07] MEDS ORDERED: Sodium Chloride 0.9% 1,000 ML IV SCH ×2 (16:30)
--- NOTE | 2019-09-07 16:44 | EDM.PDOC ---
ED HPI GENERAL MEDICAL PROBLEM - General Chief Complaint: Drug or Alcohol Abuse Stated Complaint: SUICIDE IDIOLOGY Time Seen by Provider: 09/07/19 16:21 - History of Present Illness INITIAL COMMENTS - FREE TEXT/NARRATIVE: Patient request to be seen for suicidal ideation and for alcohol rehab of diabetes hypertension and he has not been taking care of himself well drinking to excess and was recently in rehab two weeks ago for 25 days and also was in rehab for 25 days prior to that in the last couple months. He is requesting to go back. He is supposed to take hypertension and diabetes medications but he is noncompliant he states that if something is not done soon he will . Plan for suicide he is just afraid he will not live through this current behavior. headache Pain Score (Numeric/FACES): 5 - Related Data Allergies Allergy/AdvReac Type Severity Reaction Status Date / Time No Known Allergies Allergy Verified 09/07/19 16:26 Home Meds: Home Meds FLUoxetine [PROzac] 40 mg PO DAILY 06/08/18 [History] Famotidine 20 mg PO BID 02/15/19 [History] Albuterol [Proventil HFA] 2 puff INH Q4H PRN #1 inhaler 02/16/19 [Rx] Fluticasone/Salmeterol [Advair 250-50] 1 puff INH BID #1 diskus 02/16/19 [Rx] Insulin Detemir [Levemir] 20 unit SQ DAILY #1 box 02/16/19 [Rx] lisinopriL [Lisinopril] 20 mg PO DAILY #30 tablet 02/16/19 [Rx] metFORMIN HCl [Metformin HCl] 1,000 mg PO BID #60 tablet 02/16/19 [Rx] Folic Acid 1 mg PO BEDTIME tablet 04/08/19 [Rx] HYDROmorphone [Dilaudid] 2 mg PO Q8H PRN #14 tablet 04/08/19 [Rx] Insulin Aspart [NovoLOG] 6 unit SUBCUT WITHMEALSANDBED #1 pen 04/08/19 [Rx] LORazepam [Ativan] 0 mg PO Q6H PRN tablet 04/08/19 [Rx] Thiamine [Vitamin B-1] 100 mg PO BEDTIME tablet 04/08/19 [Rx] atorvaSTATin [Lipitor] 20 mg PO BEDTIME tablet 04/08/19 [Rx] chlordiazePOXIDE [Librium] 25 mg PO TID #15 cap 05/08/19 [Rx] Past Medical History HEENT History: Reports: Impaired Vision Cardiovascular History: Reports: Hypertension, Pacemaker Respiratory History: Reports: None Gastrointestinal History: Reports: None, Other (See Below) Other Gastrointestinal History: polyps removed Genitourinary History: Reports: None Musculoskeletal History: Reports: Fracture Other Musculoskeletal History: rid in right leg Neurological History: Reports: Neuropathy, Diabetic Psychiatric History: Reports: Anxiety, Depression, Panic Attack Endocrine/Metabolic History: Reports: Diabetes, Type II, Obesity/BMI 30+ Hematologic History: Reports: None Immunologic History: Reports: None Oncologic (Cancer) History: Reports: None Dermatologic History: Reports: None - Infectious Disease History Infectious Disease History: Reports: None - Past Surgical History Cardiovascular Surgical History: Reports: Pacer GI Surgical History: Reports: Colonoscopy, Hernia Repair/Other Social & Family History - Family History Family Medical History: Noncontributory - Caffeine Use Caffeine Use: Reports: Soda - Living Situation & Occupation Living situation: Reports: Alone Occupation: Employed ED ROS GENERAL - Review of Systems Review Of Systems: See Below ED EXAM, GENERAL - Physical Exam Exam: See Below EKG INTERPRETATION EKG Interpretation Comments: EKG is normal sinus rhythm with a rate of 94 bpm no ischemic changes nonspecific ST-T changes read and interpreted by me Course - Vital Signs Text/Narrative:: Patient was medically cleared in the ED he was given a clonidine patch for his hypertension he was given Ativan and Librium for his alcohol withdrawal symptoms he was given fluids and regular insulin 12 units for his hyperglycemia his repeat sugar was 265. Patient is resting calmly in the ED. I discussed the case with Dr. Cai at [facility] emergency [facility] they will accept him in transfer. They have detox and rehab facilities available at that hospital. Last Recorded V/S: Last Vital Signs Temp 36.2 C 09/07/19 16:20 Pulse 90 09/07/19 17:05 Resp 18 09/07/19 17:05 BP 135/91 H 09/07/19 17:05 Pulse Ox 95 09/07/19 17:05 - Orders/Labs/Meds Orders: Active Orders 24 hr Category Date Time Status Blood Glucose Check, Bedside [RC] ONETIME Care 09/07/19 18:08 Active EKG Documentation Completion [RC] STAT Care 09/07/19 16:23 Active Sodium Chloride 0.9% [Normal Saline] 1,000 ml Med 09/07/19 16:30 Active IV ASDIRECTED Sodium Chloride 0.9% [Normal Saline] 1,000 ml Med 09/07/19 16:30 Active IV ASDIRECTED cloNIDine [Catapres TTS-2] Med 09/07/19 17:00 Active 0.2 mg TRDERM Q7D Medication Orders Clonidine HCl (Catapres Tts-2) 0.2 mg TRDERM Q7D CLAUDIO Last Admin: 09/07/19 17:22 Dose: 0.2 mg Sodium Chloride (Normal Saline) 1,000 mls @ 2,000 mls/hr IV ASDIRECTED CLAUDIO Last Admin: 09/07/19 16:51 Dose: 2,000 mls/hr Sodium Chloride (Normal Saline) 1,000 mls @ 150 mls/hr IV ASDIRECTED CLAUDIO Labs: Laboratory Tests 09/07/19 09/07/19 09/07/19 Range/Units 16:35 16:35 17:25 WBC 12.25 H (4.0-11.0) K/uL RBC 4.93 (4.50-5.90) M/uL Hgb 15.7 (13.0-17.0) g/dL Hct 44.5 (38.0-50.0) % MCV 90.3 (80.0-98.0) fL MCH 31.8 (27.0-32.0) pg MCHC 35.3 (31.0-37.0) g/dL RDW Std Deviation 45.2 (28.0-62.0) fl RDW Coeff of Blank 14 (11.0-15.0) % Plt Count 124 L (150-400) K/uL MPV 9.40 (7.40-12.00) fL Neut % (Auto) 54.1 (48.0-80.0) % Lymph % (Auto) 40.0 (16.0-40.0) % [place] % (Auto) 5.4 (0.0-15.0) % Eos % (Auto) 0.3 (0.0-7.0) % Baso % (Auto) 0.2 (0.0-1.5) % Neut # (Auto) 6.6 H (1.4-5.7) K/uL Lymph # (Auto) 4.9 H (0.6-2.4) K/uL [place] # (Auto) 0.7 (0.0-0.8) K/uL Eos # (Auto) 0.0 (0.0-0.7) K/uL Baso # (Auto) 0.0 (0.0-0.1) K/uL Nucleated RBC % 0.0 /100WBC Nucleated RBCs # 0 K/uL Sodium 134 L (136-148) mmol/L Potassium 3.8 (3.5-5.1) mmol/L Chloride 93 L (98-107) mmol/L Carbon Dioxide 21.0 (21.0-32.0) mmol/L BUN 5 L (7.0-18.0) mg/dL Creatinine 1.0 (0.8-1.3) mg/dL Est Cr Clr Drug Dosing 94.84 mL/min Estimated GFR (MDRD) > 60.0 ml/min Glucose 368 H (74-106) mg/dL POC Glucose (60-110) mg/dL Calcium 8.4 L (8.5-10.1) mg/dL Magnesium 1.5 L (1.8-2.4) mg/dL Total Bilirubin 0.4 (0.2-1.0) mg/dL AST 44 H (15-37) IU/L ALT 36 (14-63) IU/L Alkaline Phosphatase 96 (46-116) U/L Total Protein 7.4 (6.4-8.2) g/dL Albumin 3.6 (3.4-5.0) g/dL Globulin 3.8 (2.6-4.0) g/dL Albumin/Globulin Ratio 0.9 (0.9-1.6) TSH 3rd Generation 1.53 (0.36-3.74) uIU/mL Urine Color YELLOW Urine Appearance SLT CLOUDY Urine pH 6.0 (5.0-8.0) Ur Specific [place] 1.015 (1.001-1.035) Urine Protein 100 H (NEGATIVE) mg/dL Urine Glucose (UA) >=1000 (NEGATIVE) mg/dL Urine Ketones 15 H (NEGATIVE) mg/dL Urine Occult Blood SMALL H (NEGATIVE) Urine Nitrite NEGATIVE (NEGATIVE) Urine Bilirubin NEGATIVE (NEGATIVE) Urine Urobilinogen 0.2 (<2.0) EU/dL Ur Leukocyte Esterase NEGATIVE (NEGATIVE) Urine RBC 1-3 (0-2/HPF) Urine WBC 0-2 (0-5/HPF) Ur Epithelial Cells FEW (NONE-FEW) Urine Bacteria RARE (NEGATIVE) Salicylates 4.5 (0-20) mg/dL Urine Opiates Screen (NEGATIVE) Ur Oxycodone Screen (NEGATIVE) Urine Methadone Screen (NEGATIVE) Acetaminophen <2.0 ug/mL Ur Barbiturates Screen (NEGATIVE) Ur Phencyclidine Scrn (NEGATIVE) Ur Amphetamine Screen (NEGATIVE) U Methamphetamines Scrn (NEGATIVE) U Benzodiazepines Scrn (NEGATIVE) U Cocaine Metab Screen (NEGATIVE) U Marijuana (THC) Screen (NEGATIVE) Ethyl Alcohol 264 mg/dL 09/07/19 09/07/19 Range/Units 17:25 18:20 WBC (4.0-11.0) K/uL RBC (4.50-5.90) M/uL Hgb (13.0-17.0) g/dL Hct (38.0-50.0) % MCV (80.0-98.0) fL MCH (27.0-32.0) pg MCHC (31.0-37.0) g/dL RDW Std Deviation (28.0-62.0) fl RDW Coeff of Blank (11.0-15.0) % Plt Count (150-400) K/uL MPV (7.40-12.00) fL Neut % (Auto) (48.0-80.0) % Lymph % (Auto) (16.0-40.0) % [place] % (Auto) (0.0-15.0) % Eos % (Auto) (0.0-7.0) % Baso % (Auto) (0.0-1.5) % Neut # (Auto) (1.4-5.7) K/uL Lymph # (Auto) (0.6-2.4) K/uL [place] # (Auto) (0.0-0.8) K/uL Eos # (Auto) (0.0-0.7) K/uL Baso # (Auto) (0.0-0.1) K/uL Nucleated RBC % /100WBC Nucleated RBCs # K/uL Sodium (136-148) mmol/L Potassium (3.5-5.1) mmol/L Chloride (98-107) mmol/L Carbon Dioxide (21.0-32.0) mmol/L BUN (7.0-18.0) mg/dL Creatinine (0.8-1.3) mg/dL Est Cr Clr Drug Dosing mL/min Estimated GFR (MDRD) ml/min Glucose (74-106) mg/dL POC Glucose 277 H (60-110) mg/dL Calcium (8.5-10.1) mg/dL Magnesium (1.8-2.4) mg/dL Total Bilirubin (0.2-1.0) mg/dL AST (15-37) IU/L ALT (14-63) IU/L Alkaline Phosphatase (46-116) U/L Total Protein (6.4-8.2) g/dL Albumin (3.4-5.0) g/dL Globulin (2.6-4.0) g/dL Albumin/Globulin Ratio (0.9-1.6) TSH 3rd Generation (0.36-3.74) uIU/mL Urine Color Urine Appearance Urine pH (5.0-8.0) Ur Specific [place] (1.001-1.035) Urine Protein (NEGATIVE) mg/dL Urine Glucose (UA) (NEGATIVE) mg/dL Urine Ketones (NEGATIVE) mg/dL Urine Occult Blood (NEGATIVE) Urine Nitrite (NEGATIVE) Urine Bilirubin (NEGATIVE) Urine Urobilinogen (<2.0) EU/dL Ur Leukocyte Esterase (NEGATIVE) Urine RBC (0-2/HPF) Urine WBC (0-5/HPF) Ur Epithelial Cells (NONE-FEW) Urine Bacteria (NEGATIVE) Salicylates (0-20) mg/dL Urine Opiates Screen NEGATIVE (NEGATIVE) Ur Oxycodone Screen NEGATIVE (NEGATIVE) Urine Methadone Screen NEGATIVE (NEGATIVE) Acetaminophen ug/mL Ur Barbiturates Screen POSITIVE (NEGATIVE) Ur Phencyclidine Scrn NEGATIVE (NEGATIVE) Ur Amphetamine Screen NEGATIVE (NEGATIVE) U Methamphetamines Scrn NEGATIVE (NEGATIVE) U Benzodiazepines Scrn NEGATIVE (NEGATIVE) U Cocaine Metab Screen NEGATIVE (NEGATIVE) U Marijuana (THC) Screen NEGATIVE (NEGATIVE) Ethyl Alcohol mg/dL Meds: Medications Generic Name Dose Route Start Last Admin Trade Name Freq PRN Reason Stop Dose Admin Clonidine HCl 0.2 mg 09/07/19 17:00 09/07/19 17:22 Catapres Tts-2 TRDERM 0.2 mg Q7D CLAUDIO Administration Sodium Chloride 1,000 mls @ 2,000 mls/hr 09/07/19 16:30 09/07/19 16:51 Normal Saline IV 2,000 mls/hr ASDIRECTED CLAUDIO Administration Sodium Chloride 1,000 mls @ 150 mls/hr 09/07/19 16:30 Normal Saline IV ASDIRECTED CLAUDIO Discontinued Medications Generic Name Dose Route Start Last Admin Trade Name Yamini PRN Reason Stop Dose Admin Chlordiazepoxide HCl 25 mg 09/07/19 16:51 09/07/19 17:21 Librium PO 09/07/19 16:52 25 mg ONETIME ONE Administration Insulin Human NPH 12 unit 09/07/19 17:24 Novolin N SUBCUT 09/07/19 17:25 ONETIME ONE Insulin Human Regular Confirm 09/07/19 17:48 Novolin R Administered 09/07/19 17:49 Dose 1,000 unit .ROUTE .STK-MED ONE Lorazepam 1 mg 09/07/19 16:51 09/07/19 17:05 Ativan IVPUSH 09/07/19 16:52 1 mg ONETIME ONE Administration Ondansetron HCl 4 mg 09/07/19 16:50 09/07/19 17:04 Zofran IVPUSH 09/07/19 16:51 4 mg ONETIME ONE Administration Departure - Departure Time of Disposition: 18:38 Disposition: DC/Tfer to Acute Hospital 02 Clinical Impression: Alcohol intoxication Qualifiers: Complication of substance-induced condition: with unspecified complication Qualified Code(s): F10.929 - Alcohol use, unspecified with intoxication, unspecified Depression Qualifiers: Depression Type: major depressive disorder Hyperglycemia due to type 2 diabetes mellitus Qualifiers: Diabetes mellitus long term acute care registered nurse insulin use: unspecified longterm insulin use status Qualified Code(s): E11.65 - Type 2 diabetes mellitus with hyperglycemia - Discharge Information *PRESCRIPTION DRUG MONITORING PROGRAM REVIEWED*: Not Applicable *COPY OF PRESCRIPTION DRUG MONITORING REPORT IN PATIENT TORRI: Not Applicable Forms: ED Department Discharge Sepsis Event Note - Evaluation Sepsis Screening Result: No Definite Risk - Focused Exam Vital Signs: Vital Signs Temp Pulse Resp BP Pulse Ox 09/07/19 17:05 90 18 135/91 H 95 09/07/19 16:20 36.2 C 106 H 18 146/106 H 98 Date Exam was Performed: 09/07/19 Time Exam was Performed: 18:33 - My Orders Last 24 Hours: My Active Orders 09/07/19 16:23 EKG Documentation Completion [RC] STAT 09/07/19 16:30 Sodium Chloride 0.9% [Normal Saline] 1,000 ml IV ASDIRECTED Sodium Chloride 0.9% [Normal Saline] 1,000 ml IV ASDIRECTED 09/07/19 17:00 cloNIDine [Catapres TTS-2] 0.2 mg TRDERM Q7D 09/07/19 18:08 Blood Glucose Check, Bedside [RC] ONETIME - Assessment/Plan Last 24 Hours: My Active Orders 09/07/19 16:23 EKG Documentation Completion [RC] STAT 09/07/19 16:30 Sodium Chloride 0.9% [Normal Saline] 1,000 ml IV ASDIRECTED Sodium Chloride 0.9% [Normal Saline] 1,000 ml IV ASDIRECTED 09/07/19 17:00 cloNIDine [Catapres TTS-2] 0.2 mg TRDERM Q7D 09/07/19 18:08 Blood Glucose Check, Bedside [RC] ONETIME
[2019-09-07] MEDS ORDERED: Ondansetron 4 MG/2 ML SDV IVPUSH ONE ×2 (16:50→19:21)
[2019-09-07] MEDS ORDERED: LORazepam 2 MG/ML SDV IVPUSH ONE (16:51)
[2019-09-07] MEDS ORDERED: chlordiazePOXIDE 25 MG Cap PO ONE (16:51)
[2019-09-07] MEDS ORDERED: cloNIDine 0.2 MG/Day Transdermal Patch TRDERM SCH (17:00)
[2019-09-07 17:18] LABS: ACETAMINOPHEN <2.0 ug/mL; BLOOD UREA NITROGEN,BUN 5 mg/dL (7.0-18.0); CHLORIDE,CL 93 mmol/L (98-107); GLUCOSE RANDOM 368 mg/dL (74-106); POTASSIUM,K 3.8 mmol/L (3.5-5.1); SODIUM,NA 134 mmol/L (136-148)
[2019-09-07] MEDS ORDERED: Insulin Isophane NPH, Human 100 Units/ML 10 ML Vial SUBCUT ONE (17:24)
[2019-09-07] MEDS: Insulin Regular, Human 100 Units/ML 10 ML Vial ONE ×2 (18:40→19:37)
[2019-09-07] MEDS ORDERED: Acetaminophen 500 MG Tab PO ONE (19:21)
[2019-09-07] MEDS ORDERED: Insulin Regular, Human 100 Units/ML 10 ML Vial IVPUSH ONE (19:31)
== END 2019-09-07 19:45 ==
LOC: MW.ED 16:16
DX: F32.9 Major depressive disorder, single episode, unspecified (principal); E11.65 Type 2 diabetes mellitus with hyperglycemia; F10.929 Alcohol use, unspecified with intoxication, unspecified; I10 Essential (primary) hypertension; E11.40 Type 2 diabetes mellitus with diabetic neuropathy, unspecified; F41.9 Anxiety disorder, unspecified; E66.9 Obesity, unspecified; Z68.33 Body mass index [BMI] 33.0-33.9, adult; Z79.4 Long term (current) use of insulin; Z79.899 Other long term (current) drug therapy; Y90.8 Blood alcohol level of 240 mg/100 ml or more
CPT/HCPCS: 80053; 80305; 80307; 81001; 82962; 83735; 84443; 85025; 93005; 96361; 96374; 96375; 96376; 99285; A9270; J1815; J2060; J2405; J7030